=== PATIENT | female | born 1960 | race Caucasian/White ===

== ENCOUNTER 2017-02-11 09:17 | Emergency (ER) | payer OTHER ==
[~2017-02-11] VITALS: Ht 162.6 cm; Wt 56.7 kg
[~2017-02-11 09:17] MED LIST: ACET-685 PO; ALBU18HF IH; LEVO150T6 PO; MELA5TAB PO; OMEP20TA62 PO
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
--- NOTE | 2017-02-11 09:48 | DIREP ---
COMPARISON:None. INDICATIONS:injury, FALL FINDINGS: BONES:Normal. JOINTS:Normal. SOFT TISSUES:Normal. OTHER:No additional findings. CONCLUSION:Normal examination. Dictated by: Alyx Chen III, MD on 02/11/2017 at 09:46 AM
--- NOTE | 2017-02-11 09:52 | NUR ---
PD [place] [facility] IN ROOM SPEAKING WITH PT
[2017-02-11 10:07] VITALS: BP 132/87
== END 2017-02-11 10:06 | disposition home or self-care (01) ==
LOC: ER 09:17 → EDBD 09:17 → ER 10:06
DX: S80.12XA Contusion of left lower leg, initial encounter (principal); E07.9 Disorder of thyroid, unspecified; J44.9 Chronic obstructive pulmonary disease, unspecified; F17.210 Nicotine dependence, cigarettes, uncomplicated; Z88.1 Allergy status to other antibiotic agents; Z88.8 Allergy status to other drugs, medicaments and biological substances; Z79.899 Other long term (current) drug therapy; W22.8XXA Striking against or struck by other objects, initial encounter; Y93.89 Activity, other specified; Y92.59 Other trade areas as the place of occurrence of the external cause; Y99.8 Other external cause status
CPT/HCPCS: 99284; 73590-LT

== ENCOUNTER 2017-04-04 20:16 | Emergency (ER) | payer OTHER ==
[~2017-04-04] VITALS: Ht 162.6 cm; Wt 58.5 kg
--- NOTE | 2017-04-04 20:48 | ER.PDOC ---
General Chief Complaint: General Complaint Stated Complaint: CONGESTION Time seen by MD: 20:40 Source: patient Exam Limitations: no limitations History of Present Illness Initial Comments Pt with cough, expectoration, nasal congestion for over 1 week, occasional wheezing Timing/Duration: gradual Severity: moderate Associated Symptoms: fever/chills, cough, productive cough, mild SOB Allergies: Coded Allergies: celecoxib (Unverified Allergy, Severe, SEIZURES, 02/22/15) cephalexin (Unverified Allergy, Mild, N/V, 02/22/15) Home Meds Reported Medications Albuterol Sulfate (VENTOLIN HFA) 18 Gm Hfa.aer.ad, 18 GM IH Q6HR 03/01/15 Omeprazole Magnesium (PRILOSEC OTC) 20 Mg Tablet.dr, 20 MG PO DAILY 02/22/15 Melatonin (MELATONIN) 5 Mg Tablet, 10 MG PO HS Y for INSOMNIA, TABLET 02/22/15 Levothyroxine Sodium (LEVOTHYROXINE SODIUM) 150 Mcg Tablet, 75 MCG PO DAILY, TABLET 02/22/15 Constitutional: see HPI EENTM: see HPI Respiratory: see HPI Cardiovascular: see HPI Gastrointestinal: see HPI Genitourinary: see HPI Musculoskeletal: see HPI Skin: see HPI Psychiatric/Neurological: see HPI Endocrine: see HPI Hematologic/Lymphatic: see HPI Past Medical History Medical History: high cholesterol, thyroid disease Surgical History: cholecystectomy, Social History Smoking: less than 1 pack/day Alcohol Use: none Drug Use: none Physical Exam General Appearance: alert, no distress Eye: eyes nml inspection, lids & conjunct. nml, PERRL, no nystagmus Ear: ear nml Nose: mucosal edema Throat: pharynx nml, airway nml Neck: nml inspection, supple Respiratory: rhonchi Abdomen: non-tender, no organomegaly CVS: reg rate & rhythm, heart sounds nml Skin: color nml, no rash, warm/dry Extremities: non-tender, nml ROM, no pedal edema NEURO/PSYCH: oriented x 3, CN's nml as tested, motor nml, sensation nml, mood/ affect nml Departure Time of Disposition: 20:47 Disposition: 01 HOME, SELF-CARE Impression: Primary Impression: Cough productive of purulent sputum Additional Impressions: Upper respiratory infection Chronic obstruct airways disease Condition: Stable Patient Instructions: Bronchitis Referrals: ARMIDA GREGG MD (PCP) PRIMARY CARE PROVIDER TARA BACON MD April 04, 2017 20:48
[2017-04-04 21:04] VITALS: BP 130/77
== END 2017-04-04 20:55 | disposition home or self-care (01) ==
LOC: ER 20:16
DX: J44.9 Chronic obstructive pulmonary disease, unspecified (principal); E78.00 Pure hypercholesterolemia, unspecified; E07.9 Disorder of thyroid, unspecified; Z79.899 Other long term (current) drug therapy; Z88.1 Allergy status to other antibiotic agents
CPT/HCPCS: 99283

== ENCOUNTER → 2017-04-19 | Outpatient (CLI) | payer OTHER, SELFPAY ==
--- NOTE | 2017-04-19 10:01 | DIREP ---
PROCEDURE:CHEST 2 VIEWS COMPARISON:[facility], CR, XRAY CHEST 2 VWS, 05/06/2015, 11:05 AM. INDICATIONS:R05 COUGH FINDINGS: LUNGS/PLEURA: The lungs are clear of focal consolidation. No effusion or pleural thickening. VASCULATURE: Unremarkable pulmonary vasculature. CARDIAC: No cardiac silhouette abnormality or cardiomegaly. ANURAG/MEDIASTINUM: No visible mass or adenopathy. BONES: No acute changes. No fracture. OTHER: Foreign bodies overlie the anterior chest. CONCLUSION: 1. No acute cardiopulmonary changes. Dictated by: Chase Dunn M.D. on 04/19/2017 at 09:58 AM
== END | disposition home or self-care (01) ==
LOC: RAD 09:05
PROVIDERS: ATTEND Pediatrics
DX: R05 Cough (principal)
CPT/HCPCS: 71020

== ENCOUNTER 2017-06-09 17:33 | Emergency (ER) | payer OTHER, SELFPAY ==
[~2017-06-09] VITALS: Ht 162.6 cm; Wt 60.3 kg
[2017-06-09] MEDS ORDERED: IMODIUM PO STA (17:54)
[2017-06-09] MEDS ORDERED: NS 1000ML 1,000 ML IV ONE (18:00)
--- NOTE | 2017-06-09 18:00 | ER.PDOC ---
General Chief Complaint: Nausea,Vomiting,Diarrhea Stated Complaint: ABDOMEN PAIN,VOMITING,DIARRHEA Time seen by MD: 17:52 Source: patient Exam Limitations: no limitations History of Present Illness Initial Comments diarhrea for 2 days Timing/Duration: 1 hour, 24 hours Severity/Quality: mild Associated Symptoms (vomiting): mild vomiting Prior symptoms/Treatment: Recently Hospitalized Allergies: Coded Allergies: celecoxib (Unverified Allergy, Severe, SEIZURES, 02/22/15) cephalexin (Unverified Allergy, Mild, N/V, 02/22/15) Home Meds Reported Medications Albuterol Sulfate (VENTOLIN HFA) 18 Gm Hfa.aer.ad, 18 GM IH Q6HR 03/01/15 Omeprazole Magnesium (PRILOSEC OTC) 20 Mg Tablet.dr, 20 MG PO DAILY 02/22/15 Melatonin (MELATONIN) 5 Mg Tablet, 10 MG PO HS Y for INSOMNIA, TABLET 02/22/15 Levothyroxine Sodium (LEVOTHYROXINE SODIUM) 150 Mcg Tablet, 75 MCG PO DAILY, TABLET 02/22/15 Vital Signs First Vital Signs Date Time Temp Pulse Resp B/P (MAP) Pulse Ox O2 Delivery O2 Flow Rate FiO2 06/09/17 17:45 97.7 58 18 98 06/09/17 17:47 95/55 (68) Last Vital Signs Date Time Temp Pulse Resp B/P (MAP) Pulse Ox O2 Delivery O2 Flow Rate FiO2 06/09/17 18:29 57 12 104/65 (78) 99 06/09/17 17:47 97.7 Past Medical History Medical History: COPD, thyroid disease Surgical History: cholecystectomy, LMP (females 10-50): postmenopause Family History Significant Family History: no pertinent family hx Social History Smoking: less than 1 pack/day Alcohol Use: rarely Drug Use: none Constitutional: denies fever EENTM: denies eye pain Respiratory: denies cough Cardiovascular: denies chest pain Genitourinary: denies burning Psychiatric/Neurological: denies anxiety Physical Exam General Appearance: Anxious HEENT: PERRL/EOMI, Normal ENT Inspection, TMs Normal, Pharynx Normal Neck: Non-Tender, Full Range of Motion, Supple, Normal Inspection Respiratory: chest non-tender, lungs clear, normal breath sounds, no respiratory distress, no accessory muscle use Cardiovascular: Normal Peripheral Pulses, Regular Rate, Rhythm, No Edema, No Gallop, No JVD, No Murmur Gastrointestinal: Normal Bowel Sounds, Non Tender, Soft Rectal: Normal Exam Back: Normal Inspection, No CVA Tenderness, No Vertebral Tenderness Extremities: Normal Range of Motion, Non-Tender, Normal Inspection, No Pedal Edema, No Calf Tenderness, Normal Capillary Refill, Pelvis Stable 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, No Motor/Sensory Deficits, Alert, Normal Mood/Affect, Oriented x 3 Skin: Normal Color, Warm/Dry Lymphatic: No Adenopathy Laceration/Wound Repair Laceration/Wound Repair : Wound Location: scalp Wound Length (cm): 8 Progress Results/Orders Results/Orders Laboratory Tests Test 06/09/17 18:03 White Blood Count 8.9 10^3/uL (4.5-11.0) Red Blood Count 4.04 10^6/uL (4.00-5.20) Hemoglobin 12.3 g/dL (12.0-15.0) Hematocrit 36.5 % (36.0-46.0) Mean Corpuscular Volume 90.3 fL (78-100) Mean Corpuscular Hemoglobin 30.4 pg (26-34) Mean Corpuscular Hemoglobin Concent 33.7 g/dL (33-37) Red Cell Distribution Width 13.0 % (11.5-14.5) Platelet Count 333 10^3/uL (150-400) Mean Platelet Volume 9.3 fL (7.8-11.0) Neutrophils (%) (Auto) 47.6 % (41.0-85.0) Lymphocytes (%) (Auto) 37.5 % (24.0-44.0) Monocytes (%) (Auto) 10.3 % (5.0-12.0) Neutrophils # (Auto) 4.2 10^3/uL (1.8-7.7) Lymphocytes # (Auto) 3.3 10^3/uL (1.0-4.8) Monocytes # (Auto) 0.9 10^3/uL (0.3-0.8) Absolute Immature Granulocyte (auto 0.01 10^3 u/L (0-2) Eosinophils % 3.8 % (0.0-5.0) Basophils % 0.7 % (0.0-0.2) Basophils # 0.1 10^3/uL (0.0-0.1) Eosinophil Count 0.3 10^3/uL (0.0-0.2) Sodium Level 137 mmol/L (132-145) Potassium Level 3.7 mmol/L (3.6-5.2) Chloride Level 104.0 mmol/L (96-109) Carbon Dioxide Level 20.1 mmol/L (20.0-32) Anion Gap 16.6 Blood Urea Nitrogen 5 mg/dL (7-18) Creatinine 1.21 mg/dL (0.59-1.40) Estimated GFR () 55.9 (>/=60) BUN/Creatinine Ratio 4.0 Glucose Level 94 mg/dL (70-110) Calcium Level 9.1 mg/dL (8.4-10.5) Total Bilirubin 0.3 mg/dL (0.2-1.0) Aspartate Amino Transf (AST/SGOT) 27 U/L (0-35) Alanine Aminotransferase (ALT/SGPT) 31 U/L (12-78) Alkaline Phosphatase 192 U/L (50-136) Total Protein 7.7 g/dL (6.4-8.2) Albumin 4.0 g/dL (3.4-5.0) Globulin 3.7 Percent Immature Gran (Cell Imm) 0.10 % (0.00-0.50) Administered Medications Medications (Trade) Dose Ordered Sig/Krystle Route PRN Reason Start Time Stop Time Status Last Admin Dose Admin Sodium Chloride 1,000 ml @ 0 mls/hr Q0M ONCE IV 06/09/17 18:00 06/09/17 18:01 UNV 06/09/17 18:28 Loperamide HCl (Imodium) 2 mg STAT STAT PO 06/09/17 17:54 06/09/17 17:55 UNV 06/09/17 18:28 Progress Progress labs neg Departure Time of Disposition: 18:43 Disposition: 01 HOME, SELF-CARE Impression: Primary Impression: Diarrhea Ruled Out: Acute pancreatitis Condition: Stable Referrals: ARMIDA GREGG MD (PCP) PRIMARY CARE PROVIDER Additional Instructions: cipro imodium DAMI OCHOA Dr., MD Jun 09, 2017 18:00
[2017-06-09 18:16] LABS: BASOPHIL # 0.1 10^3/uL (0.0-0.1); BASOPHIL % 0.7 % (0.0-0.2); EOSINOPHIL # 0.3 10^3/uL (0.0-0.2); EOSINOPHIL % 3.8 % (0.0-5.0); HEMOGLOBIN 12.3 g/dL (12.0-15.0); LYMPHOCYTES # 3.3 10^3/uL (1.0-4.8); LYMPHOCYTES % 37.5 % (24.0-44.0); MEAN CELL HGB 30.4 pg (26-34); MEAN CELL HGB CONCENTRATION 33.7 g/dL (33-37); MEAN CORP VOLUME 90.3 fL (78-100); MEAN PLATELET VOLUME 9.3 fL (7.8-11.0); MONOCYTES # 0.9 10^3/uL (0.3-0.8); MONOCYTES % 10.3 % (5.0-12.0); NEUTROPHIL # 4.2 10^3/uL (1.8-7.7); NEUTROPHILS % 47.6 % (41.0-85.0); WHITE BLOOD CELL 8.9 10^3/uL (4.5-11.0)
[2017-06-09] MEDS ORDERED: NS 1000ML 1,000 ML ONE (18:24)
[2017-06-09 18:25] LABS: CALCIUM 9.1 mg/dL (8.4-10.5); CARBON DIOXIDE 20.1 mmol/L (20.0-32)
[2017-06-09] MEDS ORDERED: IMODIUM ONE (18:25)
--- NOTE | 2017-06-09 18:58 | NUR ---
DISCHARGE DISCHARGE INSTRUCTIONS AND PRESCRIPTION MEDICATION DISCUSSED. PT VERBALIZED UNDERSTANDING. ENCOURAGED TO RETURN FOR ANY CONCERNS.
[2017-06-09 19:01] VITALS: BP 110/67
== END 2017-06-09 18:58 | disposition home or self-care (01) ==
LOC: ER 17:33
DX: R19.7 Diarrhea, unspecified (principal); E07.9 Disorder of thyroid, unspecified; J44.9 Chronic obstructive pulmonary disease, unspecified; F17.200 Nicotine dependence, unspecified, uncomplicated
CPT/HCPCS: 36415; 80053; 85025; 99284; J7030

== ENCOUNTER 2017-10-26 13:27 | Emergency (ER) | payer OTHER ==
[~2017-10-26] VITALS: Ht 162.6 cm; Wt 59.0 kg
[~2017-10-26 13:27] MED LIST changes: -MELA5TAB PO; +MELA5TAB17 PO
[2017-10-26 14:08] LABS: BASOPHIL # 0.1 10^3/uL (0.0-0.1); BASOPHIL % 1.2 % (0.0-0.2); EOSINOPHIL # 0.7 10^3/uL (0.0-0.2); EOSINOPHIL % 7.7 % (0.0-5.0); HEMOGLOBIN 12.5 g/dL (12.0-15.0); LYMPHOCYTES % 23.3 % (24.0-44.0); MEAN CELL HGB 28.9 pg (26-34); MEAN CELL HGB CONCENTRATION 32.1 g/dL (33-37); MEAN CORP VOLUME 90.1 fL (78-100); MEAN PLATELET VOLUME 9.2 fL (7.8-11.0); MONOCYTES # 0.8 10^3/uL (0.3-0.8); MONOCYTES % 9.4 % (5.0-12.0); NEUTROPHIL # 4.9 10^3/uL (1.8-7.7); NEUTROPHILS % 58.3 % (41.0-85.0); RED CELL DISTRIBUTION WIDTH 13.5 % (11.5-14.5); WHITE BLOOD CELL 8.4 10^3/uL (4.5-11.0)
[2017-10-26] MEDS ORDERED: SOLU-MEDROL ONE (14:09)
[2017-10-26] MEDS ORDERED: PULMICORT IH STA (14:15)
[2017-10-26] MEDS ORDERED: DUONEB 0.5 MG-3 MG/3 ML SOLN IH STA (14:15)
[2017-10-26] MEDS ORDERED: DUONEB 0.5 MG-3 MG/3 ML SOLN IH ONE (14:17)
[2017-10-26] MEDS ORDERED: PULMICORT IH ONE (14:17)
--- NOTE | 2017-10-26 14:20 | DIREP ---
PROCEDURE:CHEST 2 VIEWS COMPARISON:[facility], CR, XRAY CHEST 2 VWS, 04/19/2017, 09:28 AM. [facility], , CHEST 1 VIEW, 05/10/2015, 10:13 PM. INDICATIONS:cough, fever FINDINGS: LUNGS/PLEURA:Mild pulmonary hyperinflation. No focal infiltrate. Stable mild linear scarring left lung base. VASCULATURE:Normal. Unremarkable pulmonary vasculature. CARDIAC:Normal. No cardiac silhouette abnormality or cardiomegaly. MEDIASTINUM:Normal. No visible mass or adenopathy. BONES:Normal. No fracture or visible bony lesion. OTHER:Negative. CONCLUSION:Pulmonary hyperinflation without acute infiltrate. Correlate for COPD, asthma or bronchitis. Dictated by: Maik Kruger M.D. on 10/26/2017 at 02:19 PM
[2017-10-26 14:23] LABS: CALCIUM 9.2 mg/dL (8.4-10.5); CARBON DIOXIDE 20.3 mmol/L (20.0-32)
[2017-10-26] MEDS ORDERED: DECADRON IM STA (15:02)
[2017-10-26] MEDS ORDERED: DECADRON ONE (15:05)
--- NOTE | 2017-10-26 15:23 | ER.PDOC ---
General Chief Complaint: Cough/Congestion Stated Complaint: CONGESTION,WHEEZING,COPD Time seen by MD: 14:01 Source: patient Exam Limitations: no limitations History of Present Illness Initial Comments 3 days of progressive dyspnea, pt continues to smoke Timing/Duration: other (3 days) Severity: moderate Activities at Onset: none Prior Episodes/Possible Cause: occasional episodes Modifying Factors: improves with albuterol inhaler Associated Symptoms: denies symptoms Prior symptoms/Treatment: Similar symptoms previous Allergies: Coded Allergies: celecoxib (Unverified Allergy, Severe, SEIZURES, 02/22/15) cephalexin (Unverified Allergy, Mild, N/V, 02/22/15) Home Meds Reported Medications Albuterol Sulfate (VENTOLIN HFA) 18 Gm Hfa.aer.ad, 18 GM IH Q6HR 03/01/15 Omeprazole Magnesium (PRILOSEC OTC) 20 Mg Tablet.dr, 20 MG PO DAILY 02/22/15 Melatonin (MELATONIN) 5 Mg Tablet, 10 MG PO HS Y for INSOMNIA, TABLET 02/22/15 Levothyroxine Sodium (LEVOTHYROXINE SODIUM) 150 Mcg Tablet, 75 MCG PO DAILY, TABLET 02/22/15 Past Medical History Medical History: COPD, high cholesterol, thyroid disease Surgical History: cholecystectomy, LMP (females 10-50): postmenopause Social History Smoking: less than 1 pack/day Alcohol Use: none Drug Use: none Reviewed Nursing Reviewed: Vital Signs, Abn. Noted, Nursing Assessment Review of Systems Constitutional: no symptoms reported EENTM: no symptoms reported Respiratory: see HPI, cough, shortness of breath Cardiovascular: no symptoms reported Gastrointestinal: no symptoms reported Musculoskeletal: no symptoms reported Psychiatric/Neurological: no symptoms reported All Other Systems: Reviewed and Negative Physical Exam General Appearance: Mild Distress HEENT: PERRL/EOMI, TMs Normal, Pharynx Normal, Other (tender to percussion to frontal right maxillary sinusus) Neck: Non-Tender, Full Range of Motion, Supple, Normal Inspection Respiratory: other (coarse breathe sounds) Cardiovascular: Normal Peripheral Pulses, Regular Rate, Rhythm, No Edema, No Gallop, No JVD, No Murmur Gastrointestinal: Normal Bowel Sounds, No Organomegaly, No Pulsatile Mass, Non Tender, Soft Extremities: Normal Range of Motion, Non-Tender, Normal Inspection, No Pedal Edema, No Calf Tenderness, Normal Capillary Refill 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, No Motor/Sensory Deficits, Alert, Normal Mood/Affect, Oriented x 3 Results/Orders Results/Orders Laboratory Tests Test 10/26/17 14:05 White Blood Count 8.4 10^3/uL (4.5-11.0) Red Blood Count 4.33 10^6/uL (4.00-5.20) Hemoglobin 12.5 g/dL (12.0-15.0) Hematocrit 39.0 % (36.0-46.0) Mean Corpuscular Volume 90.1 fL (78-100) Mean Corpuscular Hemoglobin 28.9 pg (26-34) Mean Corpuscular Hemoglobin Concent 32.1 g/dL (33-37) Red Cell Distribution Width 13.5 % (11.5-14.5) Platelet Count 335 10^3/uL (150-400) Mean Platelet Volume 9.2 fL (7.8-11.0) Neutrophils (%) (Auto) 58.3 % (41.0-85.0) Lymphocytes (%) (Auto) 23.3 % (24.0-44.0) Monocytes (%) (Auto) 9.4 % (5.0-12.0) Neutrophils # (Auto) 4.9 10^3/uL (1.8-7.7) Lymphocytes # (Auto) 2.0 10^3/uL (1.0-4.8) Monocytes # (Auto) 0.8 10^3/uL (0.3-0.8) Absolute Immature Granulocyte (auto 0.01 10^3 u/L (0-2) Eosinophils % 7.7 % (0.0-5.0) Basophils % 1.2 % (0.0-0.2) Basophils # 0.1 10^3/uL (0.0-0.1) Eosinophil Count 0.7 10^3/uL (0.0-0.2) Sodium Level 132 mmol/L (132-145) Potassium Level 4.3 mmol/L (3.6-5.2) Chloride Level 101.0 mmol/L (96-109) Carbon Dioxide Level 20.3 mmol/L (20.0-32) Anion Gap 15.0 Blood Urea Nitrogen 6 mg/dL (7-18) Creatinine 1.30 mg/dL (0.59-1.40) Estimated GFR () 51.5 (>/=60) BUN/Creatinine Ratio 4.0 Glucose Level 104 mg/dL (70-110) Calcium Level 9.2 mg/dL (8.4-10.5) Magnesium Level 2.2 mg/dL (1.8-2.4) Total Bilirubin 0.4 mg/dL (0.2-1.0) Aspartate Amino Transf (AST/SGOT) 33 U/L (0-35) Alanine Aminotransferase (ALT/SGPT) 34 U/L (12-78) Alkaline Phosphatase 193 U/L (50-136) Total Protein 7.8 g/dL (6.4-8.2) Albumin 4.1 g/dL (3.4-5.0) Globulin 3.7 Percent Immature Gran (Cell Imm) 0.10 % (0.00-0.50) Administered Medications Medications (Trade) Dose Ordered Sig/Krystle Route PRN Reason Start Time Stop Time Status Last Admin Dose Admin Albuterol/ Ipratropium (Duoneb 0.5 Mg-3 Mg/3 ml Soln) 3 ml STAT STAT IH 10/26/17 14:15 10/26/17 14:16 DC 10/26/17 14:27 Budesonide (Pulmicort) 0.5 mg STAT STAT IH 10/26/17 14:15 10/26/17 14:16 DC 10/26/17 14:26 Dexamethasone Sodium Phosphate (Decadron) 4 mg STAT STAT IM 10/26/17 15:02 10/26/17 15:03 DC 10/26/17 15:14 Progress Progress mild improvement with duoneb will add decadron Departure Time of Disposition: 15:22 Disposition: 01 HOME, SELF-CARE Impression: Primary Impression: COPD (chronic obstructive pulmonary disease) with acute bronchitis Additional Impression: Frontal sinusitis Condition: Stable Referrals: ARMIDA GREGG MD (PCP) PRIMARY CARE PROVIDER Duration or Time Spent with Pa: 20 Problem Qualifiers Additional Impression: Frontal sinusitis Chronicity: acute Recurrence: non-recurrent Qualified Codes: J01.10 - Acute frontal sinusitis, unspecified JUNIE MYERS MD Oct 26, 2017 15:23
[2017-10-26 15:37] VITALS: BP 123/77
== END 2017-10-26 15:31 | disposition home or self-care (01) ==
LOC: ER 13:27
DX: J44.0 Chronic obstructive pulmonary disease with (acute) lower respiratory infection (principal); J20.9 Acute bronchitis, unspecified; E07.9 Disorder of thyroid, unspecified; E78.00 Pure hypercholesterolemia, unspecified; F17.200 Nicotine dependence, unspecified, uncomplicated; Z90.49 Acquired absence of other specified parts of digestive tract; Z79.899 Other long term (current) drug therapy
CPT/HCPCS: 36415; 71020; 80053; 83735; 85025; 94640; 96372; 99285; J1100; J2920; J7620; J7627

== ENCOUNTER 2017-12-01 15:14 | Emergency (ER) | payer OTHER | END 2017-12-01 15:24 | disposition left against medical advice (07) | LOC: ER 15:14 | DX: R21 Rash and other nonspecific skin eruption (principal); Z53.21 Procedure and treatment not carried out due to patient leaving prior to being seen by health care provider ==

== ENCOUNTER 2018-01-28 17:47 | Emergency (ER) | payer OTHER ==
[~2018-01-28] VITALS: Ht 162.6 cm; Wt 60.8 kg
[2018-01-28 18:43] VITALS: BP 147/85
[2018-01-28] MEDS ORDERED: BENADRYL PO STA (20:00)
[2018-01-28] MEDS ORDERED: BENADRYL PO ONE (20:03)
--- NOTE | 2018-01-28 20:06 | ER.PDOC ---
General Chief Complaint: Skin Rash/Abscess Stated Complaint: RASH TRAVEL OUT OF US: No Time seen by MD: 19:53 Source: patient Exam Limitations: no limitations History of Present Illness Initial Comments Here for pruritic insect bites. Known infestation of bedbugs in home. Timing/Duration: unsure Severity: mild Associated Symptoms: denies symptoms Allergies: Coded Allergies: celecoxib (Unverified Allergy, Severe, SEIZURES, 02/22/15) cephalexin (Unverified Allergy, Mild, N/V, 02/22/15) Home Meds Reported Medications Albuterol Sulfate (VENTOLIN HFA) 18 Gm Hfa.aer.ad, 18 GM IH Q6HR 03/01/15 Omeprazole Magnesium (PRILOSEC OTC) 20 Mg Tablet.dr, 20 MG PO DAILY 02/22/15 Melatonin (MELATONIN) 5 Mg Tablet, 10 MG PO HS Y for INSOMNIA, TABLET 02/22/15 Levothyroxine Sodium (LEVOTHYROXINE SODIUM) 150 Mcg Tablet, 75 MCG PO DAILY, TABLET 02/22/15 Past Medical History Medical History: COPD, GERD, high cholesterol, thyroid disease Surgical History: cholecystectomy, LMP (females 10-50): postmenopause Social History Smoking: less than 1 pack/day Alcohol Use: none Drug Use: none Review of Systems Constitutional: see HPI EENTM: no symptoms reported Respiratory: no symptoms reported Cardiovascular: no symptoms reported Skin: see HPI All Other Systems: Reviewed and Negative Physical Exam General Appearance: No Apparent Distress, WD/WN, Anxious EENT: eyes nml inspection Respiratory: chest non-tender, lungs clear, normal breath sounds CVS: reg rate & rhythm, no murmur Skin: Normal Color, Warm/Dry, Other (multiple bite lesions arms and legs with excoriations from scratching. No sign of infection.) Departure Time of Disposition: 20:04 Disposition: 01 HOME, SELF-CARE Impression: Primary Impression: Insect bites Condition: Stable Patient Instructions: Bedbugs, [id number] Referrals: ARMIDA GREGG MD (PCP) PRIMARY CARE PROVIDER Additional Instructions: Benadryl for itching. Apply neosporin to bites. Duration or Time Spent with Pa: 10 NICANOR ROSARIO DO Jan 28, 2018 20:06
[2018-01-28 20:17] VITALS: BP 147/85
== END 2018-01-28 20:15 | disposition home or self-care (01) ==
LOC: ER 17:47
DX: S40.861A Insect bite (nonvenomous) of right upper arm, initial encounter (principal); S40.862A Insect bite (nonvenomous) of left upper arm, initial encounter; S80.862A Insect bite (nonvenomous), left lower leg, initial encounter; S80.861A Insect bite (nonvenomous), right lower leg, initial encounter; E07.9 Disorder of thyroid, unspecified; E78.00 Pure hypercholesterolemia, unspecified; J44.9 Chronic obstructive pulmonary disease, unspecified; K21.9 Gastro-esophageal reflux disease without esophagitis; F17.200 Nicotine dependence, unspecified, uncomplicated; Z90.49 Acquired absence of other specified parts of digestive tract; Z79.899 Other long term (current) drug therapy; Z88.8 Allergy status to other drugs, medicaments and biological substances; W57.XXXA Bitten or stung by nonvenomous insect and other nonvenomous arthropods, initial encounter; Y93.89 Activity, other specified; Y92.89 Other specified places as the place of occurrence of the external cause; Y99.8 Other external cause status
CPT/HCPCS: 99282; Q0163

== ENCOUNTER 2019-01-11 18:37 | Emergency (ER) | payer SELFPAY ==
[~2019-01-11] VITALS: Ht 160 cm; Wt 52.2 kg
[2019-01-11 18:52] VITALS: BP 124/76
[2019-01-11] MEDS ORDERED: NORCO 7.5MG PO STA (18:53)
--- NOTE | 2019-01-11 18:57 | ER.PDOC ---
General Chief Complaint: Requesting Medical Care Stated Complaint: RIGHT KNEE Time seen by MD: 18:55 Source: patient Exam Limitations: no limitations History of Present Illness Initial Comments Right knee pain from twisting it. Onset: just prior to arrival Where: home Context: twist Severity: moderate Allergies: Coded Allergies: celecoxib (Unverified Allergy, Severe, SEIZURES, 02/22/15) cephalexin (Unverified Allergy, Mild, N/V, 02/22/15) Home Meds Reported Medications Albuterol Sulfate (VENTOLIN HFA) 18 Gm Hfa.aer.ad, 18 GM IH Q6HR 03/01/15 Omeprazole Magnesium (PRILOSEC OTC) 20 Mg Tablet.dr, 20 MG PO DAILY 02/22/15 Melatonin (MELATONIN) 5 Mg Tablet, 10 MG PO HS PRN for INSOMNIA, TABLET 02/22/15 Levothyroxine Sodium (LEVOTHYROXINE SODIUM) 150 Mcg Tablet, 75 MCG PO DAILY, TABLET 02/22/15 Past Medical History Surgical History: cholecystectomy, Social History Drug Use: none Review of Systems Constitutional: no symptoms reported EENTM: no symptoms reported Respiratory: no symptoms reported Cardiovascular: no symptoms reported Gastrointestinal: no symptoms reported Musculoskeletal: see HPI All Other Systems: Reviewed and Negative Physical Exam General Appearance: Alert, No Apparent Distress Foot: nml inspection, non-tender, nml color/temp, skin intact Ankle: nml inspection, non-tender, nml ROM, no joint swelling, skin intact Knee: tenderness (right knee in the medial aspect) Thigh/Hip: nml inspection Gait: limited by pain Neuro/Vasc/Tendon: sensation nml, motor nml, no vascular compromise, tendon function nml Skin: warm/dry Head/ENT: nml inspection, pharynx nml Neck/Back: nml inspection, non-tender Abdomen: non-tender, pelvis stable Results/Orders Results/Orders Administered Medications Medications (Trade) Dose Ordered Sig/Krystle Route PRN Reason Start Time Stop Time Status Last Admin Dose Admin Acetaminophen/ Hydrocodone Bitart ([place] 7.5mg) 1 each STAT STAT PO 01/11/19 18:53 01/11/19 18:54 DC 01/11/19 19:02 EKG/XRAY/CT/US XRAY Comments: No acute bony abnormality of right knee Departure Time of Disposition: 19:09 Disposition: 01 HOME, SELF-CARE Impression: Primary Impression: Right knee injury Condition: Stable Referrals: ARMIDA GREGG MD (PCP) PRIMARY CARE PROVIDER Additional Instructions: Tramadol Ibuprofen Ice F/U with PCP in 1 week Duration or Time Spent with Pa: 45 mins Problem Qualifiers Primary Impression: Right knee injury Encounter type: initial encounter Qualified Codes: S89.91XA - Unspecified injury of right lower leg, initial encounter MICHAEL SIDDIQUI MD Jan 11, 2019 18:57
[2019-01-11] MEDS ORDERED: NORCO 7.5MG PO ONE (19:00)
--- NOTE | 2019-01-11 19:16 | DIREP ---
PROCEDURE:XRAY KNEE 2 VWS-RT COMPARISON:[facility], CR, XRAY KNEE 1-2 VWS-LT, 05/26/2016, 08:53 PM. INDICATIONS:Pain from twiting it FINDINGS: BONES:Normal. JOINTS:Mild/moderate left medial femoral tibial joint space narrowing. Minimal articular spurring. No fluid in the suprapatellar recess. SOFT TISSUES:Normal. OTHER:No additional findings. CONCLUSION:Degenerative changes. No acute bony abnormality. Dictated by: Emily Harmon MD on 01/11/2019 at 07:14 PM
[2019-01-11 19:41] VITALS: BP 124/76
== END 2019-01-11 19:30 | disposition home or self-care (01) ==
LOC: ER 18:37
DX: S89.91XA Unspecified injury of right lower leg, initial encounter (principal); Z79.899 Other long term (current) drug therapy; Z88.1 Allergy status to other antibiotic agents; Z90.49 Acquired absence of other specified parts of digestive tract; X50.9XXA Other and unspecified overexertion or strenuous movements or postures, initial encounter; Y93.89 Activity, other specified; Y92.098 Other place in other non-institutional residence as the place of occurrence of the external cause; Y99.8 Other external cause status
CPT/HCPCS: 73560; 99284

== ENCOUNTER 2019-04-25 10:52 | Emergency (ER) | payer BC ==
--- NOTE | 2019-04-25 10:55 | NUR ---
ARRIVAL PATIENT ARRIVED TO ER ACCOMPANIED BY A FRIEND. PATIETN GUARDING RIGHT ARM. C/O PAIN TO RIGHT SHOULDER THAT STARTED 2 WEEKS AGO AND WORSEN YESTERDAY. DENIES ANY FALLS OR INJURIES. NO BRUSING, RIGHT SHOULDER SLIGHTLY BIGGER THAN LEFT. BILATERAL EXT EQUAL WARM, COLOR, SENSATION, PULSE 2+, CAP REFILL < 3 SEC. TRIAGE DONE AND NOTIFIED OF PATIENT.
[2019-04-25 11:11] VITALS: BP 125/67
--- NOTE | 2019-04-25 11:34 | ER.PDOC ---
General Chief Complaint: Extremities Stated Complaint: RIGHT SHOULDER/ARM PAIN Time seen by MD: 11:33 Source: patient Exam Limitations: no limitations History of Present Illness Occurred: last week Where: home Severity: moderate Context: other Allergies: Coded Allergies: celecoxib (Unverified Allergy, Severe, SEIZURES, 02/22/15) cephalexin (Unverified Allergy, Mild, N/V, 02/22/15) Home Meds Reported Medications Albuterol Sulfate (VENTOLIN HFA) 18 Gm Hfa.aer.ad, 18 GM IH Q6HR 03/01/15 Omeprazole Magnesium (PRILOSEC OTC) 20 Mg Tablet.dr, 20 MG PO DAILY 02/22/15 Melatonin (MELATONIN) 5 Mg Tablet, 10 MG PO HS PRN for INSOMNIA, TABLET 02/22/15 Levothyroxine Sodium (LEVOTHYROXINE SODIUM) 150 Mcg Tablet, 75 MCG PO DAILY, TABLET 02/22/15 Past Medical History Medical History: asthma, COPD, thyroid disease, other Surgical History: cholecystectomy, LMP (females 10-50): postmenopause Social History Smoking: less than 1 pack/day Alcohol Use: none Drug Use: none Reviewed Nursing Reviewed: Vital Signs, Abn. Noted Review of Systems All Other Systems: Reviewed and Negative Physical Exam General Appearance: Alert, No Apparent Distress Shoulder: see diagram, tenderness, limited ROM (PAINFUL ABDUCTION) Upper Extremities: uninjuried below shoulder Neuro: sensation nml, motor nml Vascular: no vascular compromise Skin: warm/dry Head/ENT: nml inspection, pharynx nml Neck/Back: non-tender, nml inspection, painless ROM Respiratory: chest non-tender, breath sounds nml Abdomen: non-tender, no organomegaly Splinting Splinting : Pre-Made Type: ARM SLING Results/Orders Results/Orders Vital Signs Date Time Temp Pulse Resp B/P (MAP) Pulse Ox O2 Delivery O2 Flow Rate FiO2 04/25/19 11:11 98.3 56 20 125/67 (86) 100 Room Air 98.3 04/25/19 11:11 98.3 20 98.3 04/25/19 11:11 58 20 100 Room Air Departure Time of Disposition: 11:55 Disposition: 01 HOME, SELF-CARE Impression: Primary Impression: Rotator cuff (capsule) sprain Condition: Stable Referrals: ARMIDA GREGG MD (PCP) PRIMARY CARE PROVIDER Duration or Time Spent with Pa: 20 M DEBRA HAND MD Apr 25, 2019 11:34
[2019-04-25 11:56] VITALS: BP 125/67
--- NOTE | 2019-04-25 12:11 | NUR ---
DISCHARGE DISCHARGE INSTRUCTION GIVEN, PATIENT VOICED UNDERSTAND. PATIENT ASSISTED IN STREET CLOTHES AND INSTRUCTED ON THE USE OF SLING. PATIENT AMBULATED ACCOMPANIED BY FRIEND TO PRIVATE VEHICLE. NO DISTRESS NOTED.
== END 2019-04-25 12:05 | disposition home or self-care (01) ==
LOC: ER 10:52
DX: S43.421A Sprain of right rotator cuff capsule, initial encounter (principal); J44.9 Chronic obstructive pulmonary disease, unspecified; E07.9 Disorder of thyroid, unspecified; F17.210 Nicotine dependence, cigarettes, uncomplicated; Z79.899 Other long term (current) drug therapy; Z88.1 Allergy status to other antibiotic agents; Z90.49 Acquired absence of other specified parts of digestive tract; X58.XXXA Exposure to other specified factors, initial encounter; Y93.89 Activity, other specified; Y92.098 Other place in other non-institutional residence as the place of occurrence of the external cause; Y99.8 Other external cause status
CPT/HCPCS: 99283

== ENCOUNTER 2019-05-16 08:31 | Emergency (ER) | payer BC ==
[~2019-05-16] VITALS: Ht 160 cm; Wt 59.9 kg
[2019-05-16 08:46] VITALS: BP 114/52
[2019-05-16] MEDS ORDERED: TORADOL IM STA (09:14)
[2019-05-16] MEDS ORDERED: TORADOL ONE (09:19)
--- NOTE | 2019-05-16 09:19 | ER.PDOC ---
General Chief Complaint: Extremities Stated Complaint: LEFT FOOT/LEG PAIN Time seen by MD: 09:18 Source: patient Exam Limitations: no limitations History of Present Illness Initial Comments Left knee, foot and ankle pain S/P fall, she refused hitting her head. Onset: just prior to arrival Where: home Context: fall Severity: moderate Allergies: Coded Allergies: celecoxib (Unverified Allergy, Severe, SEIZURES, 02/22/15) cephalexin (Unverified Allergy, Mild, N/V, 02/22/15) Home Meds Reported Medications Albuterol Sulfate (VENTOLIN HFA) 18 Gm Hfa.aer.ad, 18 GM IH Q6HR 03/01/15 Omeprazole Magnesium (PRILOSEC OTC) 20 Mg Tablet.dr, 20 MG PO DAILY 02/22/15 Melatonin (MELATONIN) 5 Mg Tablet, 10 MG PO HS PRN for INSOMNIA, TABLET 02/22/15 Levothyroxine Sodium (LEVOTHYROXINE SODIUM) 150 Mcg Tablet, 75 MCG PO DAILY, TABLET 02/22/15 Past Medical History Medical History: COPD, high cholesterol, thyroid disease Surgical History: cholecystectomy, Social History Smoking: cigarettes, greater than 1 pack/day Alcohol Use: none Drug Use: none Review of Systems Constitutional: no symptoms reported EENTM: no symptoms reported Respiratory: no symptoms reported Cardiovascular: no symptoms reported Musculoskeletal: see HPI All Other Systems: Reviewed and Negative Physical Exam General Appearance: Alert, No Apparent Distress Foot: tenderness (left) Ankle: tenderness (left) Knee: tenderness (left with abrasion) Thigh/Hip: nml inspection Gait: limited by pain Neuro/Vasc/Tendon: sensation nml, motor nml, no vascular compromise, tendon function nml Head/ENT: nml inspection, pharynx nml Neck/Back: nml inspection, non-tender Abdomen: non-tender, pelvis stable Results/Orders Results/Orders Orders - MICHAEL SIDDIQUI MD Xr Foot Lt (05/16/19 09:14) Xr Ankle 3v Lt (05/16/19 09:14) Xr Knee Lt 2v (05/16/19 09:14) Diphth,Pertuss(Acell),Tet Vac (Boostrix (05/16/19 09:30) Ketorolac Tromethamine (Toradol) (05/16/19 09:14) Ketorolac Tromethamine (Toradol) (05/16/19 09:19) Diphth,Pertuss(Acell),Tet Vac (Boostrix (05/16/19 09:20) Vital Signs Date Time Temp Pulse Resp B/P (MAP) Pulse Ox O2 Delivery O2 Flow Rate FiO2 05/16/19 08:46 98.7 63 14 114/52 (72) 100 Room Air 98.7 05/16/19 08:42 98.7 63 14 98.7 05/16/19 08:42 97.8 63 14 100 Room Air 97.8 04/25/19 11:56 56 Administered Medications Medications (Trade) Dose Ordered Sig/Krystle Route PRN Reason Start Time Stop Time Status Last Admin Dose Admin Diphtheria/ Tetanus/Acell Pertussis (Boostrix Tdap) 0.5 ml ONCE ONCE IM 05/16/19 09:30 05/16/19 09:31 DC 05/16/19 09:27 0.5 ML Ketorolac Tromethamine (Toradol) 30 mg STAT STAT IM 05/16/19 09:14 05/16/19 09:17 DC 05/16/19 09:27 30 MG Progress Progress XR left ankle: Tiny cortical step-off and cortical irregularity involving the lateral aspect of the lateral malleolus, suspicious for a tiny, not significantly displaced fracture. Departure Time of Disposition: 11:11 Disposition: 01 HOME, SELF-CARE Impression: Primary Impression: Lateral malleolar fracture Additional Impressions: Knee injury Foot injury Condition: Stable Referrals: ARMIDA GREGG MD (PCP) PRIMARY CARE PROVIDER Additional Instructions: Ice Ibuprofen Continue Tylenol #3 F/U with Dr. Sorto next week. Call for appointment. Duration or Time Spent with Pa: 60 mins Problem Qualifiers Primary Impression: Lateral malleolar fracture Encounter type: initial encounter Fracture type: closed Fracture alignment: nondisplaced Laterality: left Qualified Codes: S82.65XA - Nondisplaced fracture of lateral malleolus of left fibula, initial encounter for closed fracture Additional Impressions: Knee injury Encounter type: initial encounter Laterality: left Qualified Codes: S89.92XA - Unspecified injury of left lower leg, initial encounter Foot injury Encounter type: initial encounter Laterality: left Qualified Codes: S99.922A - Unspecified injury of left foot, initial encounter MICHAEL SIDDIQUI MD May 16, 2019 09:19
[2019-05-16] MEDS ORDERED: BOOSTRIX TDAP IM ONE ×2 (09:20→09:30)
--- NOTE | 2019-05-16 10:42 | DIREP ---
PROCEDURE:XRAY KNEE 2 VWS-LT COMPARISON:[facility], CR, XRAY KNEE 2 VWS-LT, 05/26/2016, 08:53 PM. INDICATIONS:Pain S/P fall FINDINGS: BONES:No fractures or other acute abnormalities. JOINTS:Mild narrowing of the medial compartment of the knee joint. SOFT TISSUES:Normal. OTHER:No additional findings. CONCLUSION: 1. Minimal degenerative changes, otherwise normal left knee. Dictated by: Trino Lawson MD on 05/16/2019 at 10:34 AM
--- NOTE | 2019-05-16 10:48 | DIREP ---
PROCEDURE:XRAY ANKLE MIN 3VWS-LT COMPARISON:[facility], , XRAY TIB & FIB 2 VW-LT, 02/11/2017, 08:56 AM. INDICATIONS:Pain S/P fall FINDINGS: BONES:Tiny cortical step-off and irregularity involving the distal lateral aspect of the lateral malleolus. Findings are suspicious for a hairline, nondisplaced fracture. JOINTS:Normal. SOFT TISSUES:Normal. OTHER:No additional findings. CONCLUSION: 1. Tiny cortical step-off and cortical irregularity involving the lateral aspect of the lateral malleolus, suspicious for a tiny, not significantly displaced fracture. Dictated by: Trino Lawson MD on 05/16/2019 at 10:42 AM
--- NOTE | 2019-05-16 10:49 | DIREP ---
PROCEDURE:XRAY FOOT MIN 3 VWS-LT COMPARISON:None. INDICATIONS:Pain S/P fall FINDINGS: BONES:Normal. JOINTS:Normal. SOFT TISSUES:Normal. OTHER:No additional findings. CONCLUSION:Normal examination. Dictated by: Trino Lawson MD on 05/16/2019 at 10:47 AM
--- NOTE | 2019-05-16 11:20 | NUR ---
boot ORTHO BOOT PLACED ON L FOOT.
--- NOTE | 2019-05-16 11:26 | NUR ---
DISMISSAL PT DISCHARGED IN STABLE CONDITION WITH FAMILY MEMEBER AMBULATING BESIDE PT FOR SUPPORT.
[2019-05-16 11:38] VITALS: BP 114/52
== END 2019-05-16 11:26 | disposition home or self-care (01) ==
LOC: ER 08:31
DX: S82.65XA Nondisplaced fracture of lateral malleolus of left fibula, initial encounter for closed fracture (principal); E07.9 Disorder of thyroid, unspecified; E78.00 Pure hypercholesterolemia, unspecified; F17.210 Nicotine dependence, cigarettes, uncomplicated; J44.9 Chronic obstructive pulmonary disease, unspecified; Z79.899 Other long term (current) drug therapy; Z88.1 Allergy status to other antibiotic agents; Z90.49 Acquired absence of other specified parts of digestive tract; W19.XXXA Unspecified fall, initial encounter; Y93.89 Activity, other specified; Y92.098 Other place in other non-institutional residence as the place of occurrence of the external cause; Y99.8 Other external cause status
CPT/HCPCS: 73560; 73610; 73630; 90471; 90715; 96372; 99285; J1885

== ENCOUNTER → 2019-05-21 | Outpatient (CLI) | payer BC ==
[~2019-05-21] MED LIST changes: +MELA5TAB14 PO; -MELA5TAB17 PO
[2019-05-21 09:15] LABS: BASOPHIL # 0.1 10^3/uL (0.0-0.1); BASOPHIL % 0.8 % (0.0-0.2); EOSINOPHIL # 0.3 10^3/uL (0.0-0.2); EOSINOPHIL % 3.9 % (0.0-5.0); HEMOGLOBIN 12.4 g/dL (12.0-15.0); LYMPHOCYTES # 1.5 10^3/uL (1.0-4.8); LYMPHOCYTES % 21.1 % (24.0-44.0); MEAN CELL HGB 31.1 pg (26-34); MEAN CELL HGB CONCENTRATION 34.2 g/dL (33-37); MEAN PLATELET VOLUME 8.6 fL (7.8-11.0); MONOCYTES # 0.6 10^3/uL (0.3-0.8); MONOCYTES % 8.1 % (5.0-12.0); NEUTROPHIL # 4.8 10^3/uL (1.8-7.7); NEUTROPHILS % 65.8 % (41.0-85.0); RED CELL DISTRIBUTION WIDTH 13.4 % (11.5-14.5); WHITE BLOOD CELL 7.2 10^3/uL (4.5-11.0)
[2019-05-21 09:46] LABS: CALCIUM 9.2 mg/dL (8.4-10.5); CARBON DIOXIDE 22.8 mmol/L (20.0-32)
== END | disposition home or self-care (01) ==
LOC: LAB 08:55
PROVIDERS: ATTEND Nurse Practitioner Family
DX: E78.5 Hyperlipidemia, unspecified (principal); R55 Syncope and collapse; R00.1 Bradycardia, unspecified; J44.9 Chronic obstructive pulmonary disease, unspecified; E78.00 Pure hypercholesterolemia, unspecified; Z79.899 Other long term (current) drug therapy
CPT/HCPCS: 36415; 80050; 80053; 80061; 83036; 84436; 84443; 85025

== ENCOUNTER → 2019-05-26 | Outpatient (CLI) | payer BC ==
--- NOTE | 2019-05-26 15:30 | PCM.EKG ---
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
--- NOTE | 2019-05-26 16:06 | PCM.EKG ---
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
--- NOTE | 2019-05-27 23:40 | ECHO ---
DATE OF SERVICE: 05/27/2019 ECHO REPORT INDICATIONS: A 59-year-old female with syncope, bradycardia. PRIMARY PHYSICIAN: Dr. Frey to assess for valvular abnormality. FINDINGS: Mitral valve shows mild mitral regurgitation with narrow jet velocity. It is a 4 meters velocity but it is a narrow jet velocity. There is 2+ mitral regurgitation, normal E to A ratio, normal aorta, normal aortic valve opening. Tricuspid valve shows mild tricuspid regurgitation, 2 meters velocity with the right ventricular systolic pressure 27 mm. Right ventricle is normal. Right atrium is normal. Left atrium is normal. Left ventricle is normal in size around 4.19 cm, end diastolic dimension 2.8 cm, end-systolic dimension with normal wall thickness, motion contraction, ejection fraction 50%. IVC is normal. Hence, normal LV function, normal chamber size. Mild mitral and tricuspid regurgitation. No evidence of any significant chamber enlargement or any significant valvular abnormality. No thrombus in any of the cardiac chambers. Pericardium is normal. Laxmichand MD Maria Victoria DR: PARVIZ/no JOB# [id number]
== END | disposition home or self-care (01) ==
LOC: RT 14:22
PROVIDERS: ATTEND Pediatrics
DX: I08.1 Rheumatic disorders of both mitral and tricuspid valves (principal); R06.02 Shortness of breath
CPT/HCPCS: 93005; 93306

== ENCOUNTER → 2019-06-02 | Outpatient (CLI) | payer BC ==
--- NOTE | 2019-06-02 12:35 | DIREP ---
PROCEDURE:XR SPINE CERVICAL 2 OR 3 VIEWS COMPARISON:[facility], CR, XRAY SHOULDER MIN 2 VWS-RT, 06/02/2019, 09:53 AM. [facility], CR, XRAY KNEE 1-2 VWS-RT, 01/11/2019, 06:56 PM. [facility], CR, XRAY ANKLE MIN 3VWS-LT, 05/16/2019, 09:37 AM. [facility], CR, XRAY KNEE 1-2 VWS-LT, 05/16/2019, 09:37 AM. [facility], CR, XRAY FOOT MIN 3 VWS-LT, 05/16/2019, 09:37 AM. INDICATIONS:PAIN, LOWER ROM, PARASTHESIAS FINDINGS: ALIGNMENT:Straightening of the normal cervical curvature. VERTEBRAE:Normal. DISK SPACES:Normal. CERVICAL RIBS:None. OTHER:There is an abnormal appearance of the bony pattern of the skullbase, almost blurred. This could be due to motion however in the appropriate clinical setting fibrous dysplasia could also be on the differential. CONCLUSION: 1. No acute findings. 2. Abnormal appearance of the bony pattern of the skullbase on the lateral view only, almost blurred. This is probably due to motion (there is some motion in the cervical spine as well) however in the appropriate clinical setting fibrous dysplasia could also be on the differential. Dictated by: Joseph Ochoa MD on 06/02/2019 at 12:30 PM
--- NOTE | 2019-06-02 12:36 | DIREP ---
PROCEDURE:XRAY ELBOW 2VWS-RT COMPARISON:[facility], , XRAY ELBOW 2VWS-RT, 05/31/2016, 07:38 PM. INDICATIONS:PAIN, LOWER ROM, PARASTHESIAS FINDINGS: BONES:Normal. JOINTS:Normal. No displaced anterior or posterior fat pads. SOFT TISSUES:Normal. OTHER:Normal. CONCLUSION: No acute bony findings. Dictated by: Joseph Ochoa MD on 06/02/2019 at 12:35 PM
--- NOTE | 2019-06-02 12:44 | DIREP ---
PROCEDURE:XRAY HUMERUS MIN 2 VWS-RT COMPARISON:None. INDICATIONS:PAIN, LOWER ROM, PARASTHESIAS FINDINGS: BONES:Normal. JOINTS:Normal. SOFT TISSUES:Normal. OTHER:No additional findings. CONCLUSION:No acute bony findings. Dictated by: Joseph Ochoa MD on 06/02/2019 at 12:43 PM
--- NOTE | 2019-06-02 12:45 | DIREP ---
PROCEDURE:XRAY SHOULDER MIN 2 VWS-RT COMPARISON:[facility], , XRAY SHOULDER MIN 2 VWS-RT, 05/31/2016, 07:38 PM. INDICATIONS:PAIN, LOWER ROM, PARASTHESIAS FINDINGS: BONES:Normal. JOINTS:Normal glenohumeral and acromioclavicular joints. No evidence for dislocation. SOFT TISSUES:Normal. OTHER:Normal. CONCLUSION:No acute bony findings. Dictated by: Joseph Ochoa MD on 06/02/2019 at 12:44 PM
== END | disposition home or self-care (01) ==
LOC: RAD 10:01
PROVIDERS: ATTEND Nurse Practitioner Family
DX: M25.511 Pain in right shoulder (principal); M79.641 Pain in right hand; M25.521 Pain in right elbow; M54.2 Cervicalgia
CPT/HCPCS: 72040; 73030-RT; 73060-RT; 73070-RT

== ENCOUNTER → 2019-06-05 | Outpatient (CLI) | payer BC ==
--- NOTE | 2019-06-05 18:04 | DIREP ---
PROCEDURE:CT CERVICAL SPINE with CONTRAST TECHNIQUE:Axial cuts were obtained through the cervical spine after the administration of IV contrast. The images were viewed at bone settings. Sagittal and coronal reconstructions are provided. COMPARISON:None. INDICATIONS:M54.2 CERVCIAL PAIN, R20.2 PARASTHESIAS FINDINGS: ALIGNMENT:Normal. VERTEBRAE:Normal. PARASPINAL AREA:Normal. OTHER:Mucous retention cyst or polyp left maxillary sinus. Mild mucosal thickening left sphenoid sinus CERVICAL DISC LEVELS C2-C3:Normal. C3-C4:Normal. C4-C5:Normal. C5-C6:Normal. C6-C7:Normal. C7-T1:Normal. CONCLUSION: 1. Paranasal sinus disease. Normal cervical spine Dictated by: Luis Fernando Chen Jr. on 06/05/2019 at 05:59 PM
== END | disposition home or self-care (01) ==
LOC: RAD 14:35
PROVIDERS: ATTEND Nurse Practitioner Family
DX: M54.2 Cervicalgia (principal); J32.9 Chronic sinusitis, unspecified; R20.2 Paresthesia of skin
CPT/HCPCS: 72126; Q9965

== ENCOUNTER 2019-08-10 18:30 | Emergency (ER) | payer BC ==
[~2019-08-10] VITALS: Ht 160 cm; Wt 54.9 kg
[~2019-08-10 18:30] MED LIST changes: +ACET-687 PO; +ALPR0.5T6 PO; +LEVO112T5 PO; +LEVO750T25 PO; +LOVA20TA2 PO; +PRED15SO3 LEFT EYE; +TIZA4TAB2 PO; +TRAZ-163 PO
[2019-08-10 18:36] VITALS: BP 129/76
--- NOTE | 2019-08-10 18:59 | ER.PDOC ---
General Chief Complaint: General Complaint Stated Complaint: HYPOTENSION TRAVEL OUT OF US: No Time seen by MD: 18:58 Source: patient Exam Limitations: no limitations History of Present Illness Initial Comments Low blood pressure today. Severity: moderate Associated Symptoms: denies symptoms Allergies: Coded Allergies: celecoxib (Unverified Allergy, Severe, SEIZURES, 02/22/15) cephalexin (Unverified Allergy, Mild, N/V, 02/22/15) Home Meds Reported Medications Prednisolone Sod Phosphate (PREDNISOLONE SODIUM PHOSPHATE) 15 Mg/5 Ml Solution, 1 DROP LEFT EYE TID, #60 MILLILITER 07/28/19 Acetaminophen With Codeine (TYLENOL WITH CODEINE #4 TABLET) 1 Each Tablet, 1 EACH PO Q6, TABLET 07/27/19 Lovastatin (LOVASTATIN) 20 Mg Tablet, 20 MG PO HS, TABLET 07/27/19 Alprazolam (ALPRAZOLAM) 0.5 Mg Tablet, 0.5 MG PO Q8, TABLET 07/27/19 Trazodone Hcl (TRAZODONE HCL) 50 Mg Tablet, 50 TAB PO HS, #30 TAB 07/27/19 Tizanidine Hcl (TIZANIDINE HCL) 4 Mg Tablet, 1 TAB PO BID, #60 TAB 07/27/19 Levothyroxine Sodium (LEVOTHYROXINE SODIUM) 112 Mcg Tablet, 1 TAB PO DAILY, #90 TAB 3 Refills 07/27/19 Albuterol Sulfate (VENTOLIN HFA) 18 Gm Hfa.aer.ad, 18 GM IH Q6HR 03/01/15 Omeprazole Magnesium (PRILOSEC OTC) 20 Mg Tablet.dr, 20 MG PO DAILY 02/22/15 Melatonin (MELATONIN) 5 Mg Tablet, 10 MG PO HS PRN for INSOMNIA, TABLET 02/22/15 Discontinued Scripts Levofloxacin (LEVAQUIN) 750 Mg Tablet, 750 MG PO DAILY24, #7 TAB 0 Refills Prov:ARMIDA FREY MD 07/29/19 Past Medical History Medical History: asthma, CVA/TIA/stroke, COPD, thyroid disease, other Surgical History: cardiac cath, cholecystectomy, , stent LMP (females 10-50): Menopause Social History Smoking: non-smoker Alcohol Use: none Drug Use: none Review of Systems Constitutional: no symptoms reported Respiratory: see HPI Cardiovascular: no symptoms reported Gastrointestinal: no symptoms reported Musculoskeletal: no symptoms reported All Other Systems: Reviewed and Negative Physical Exam General Appearance: No Apparent Distress, WD/WN Neck: Non-Tender, Full Range of Motion, Supple, Normal Inspection Respiratory: chest non-tender, lungs clear, normal breath sounds, no respiratory distress, no accessory muscle use CVS: reg rate & rhythm, no murmur, no gallop, pulses nml, nml capillary refill Gastrointestinal: Normal Bowel Sounds, No Organomegaly, No Pulsatile Mass, Non Tender Back: Normal Inspection Extremities: Normal Range of Motion Neurologic/Psychiatric: manager culture II-XII NML as Tested Skin: Normal Color Results/Orders Results/Orders Orders - MICHAEL SIDDIQUI MD Cbc With Auto Diff (08/10/19 18:46) Comprehensive Metabolic Panel (08/10/19 18:46) Creatine Kinase (08/10/19 18:46) Troponin I (08/10/19 18:46) Xr Chest 1v (08/10/19 18:46) Ekg-Routine (08/10/19 18:46) Vital Signs Date Time Temp Pulse Resp B/P (MAP) Pulse Ox O2 Delivery O2 Flow Rate FiO2 08/10/19 19:30 62 18 122/72 (89) 98 08/10/19 19:00 73 18 121/63 (82) 96 08/10/19 18:36 98.6 63 18 129/76 (93) 96 Room Air 08/10/19 18:36 98.6 64 18 08/10/19 18:31 98.6 64 18 96 Room Air Laboratory Tests Test 08/10/19 19:15 White Blood Count 10.0 10^3/uL (4.5-11.0) Red Blood Count 3.24 10^6/uL (4.00-5.20) L Hemoglobin 10.1 g/dL (12.0-15.0) L Hematocrit 30.4 % (36.0-46.0) L Mean Corpuscular Volume 93.8 fL (78-100) Mean Corpuscular Hemoglobin 31.2 pg (26-34) Mean Corpuscular Hemoglobin Concent 33.2 g/dL (33-37) Red Cell Distribution Width 13.4 % (11.5-14.5) Platelet Count 271 10^3/uL (150-400) Mean Platelet Volume 8.7 fL (7.8-11.0) Neutrophils (%) (Auto) 73.3 % (41.0-85.0) Lymphocytes (%) (Auto) 13.8 % (24.0-44.0) L Monocytes (%) (Auto) 10.2 % (5.0-12.0) Neutrophils # (Auto) 7.4 10^3/uL (1.8-7.7) Lymphocytes # (Auto) 1.4 10^3/uL (1.0-4.8) Monocytes # (Auto) 1.0 10^3/uL (0.3-0.8) H Absolute Immature Granulocyte (auto 0.03 10^3 u/L (0-2) Immature Granulocytes % 0.30 % (0.00-0.50) Eosinophils % 1.9 % (0.0-5.0) Basophils % 0.5 % (0.0-0.2) H Basophils # 0.1 10^3/uL (0.0-0.1) Eosinophil Count 0.2 10^3/uL (0.0-0.2) Sodium Level 139 mmol/L (132-145) Potassium Level 3.9 mmol/L (3.6-5.2) Chloride Level 107.0 mmol/L (96-109) Carbon Dioxide Level 23.0 mmol/L (20.0-32) Anion Gap 12.9 Blood Urea Nitrogen 6 mg/dL (7-18) L Creatinine 0.97 mg/dL (0.59-1.40) Estimated GFR () 71.6 (>/=60) BUN/Creatinine Ratio 6.0 Glucose Level 102 mg/dL (70-110) Calcium Level 8.8 mg/dL (8.4-10.5) Total Bilirubin 0.4 mg/dL (0.2-1.0) Aspartate Amino Transferase (AST) 21 U/L (0-35) Alanine Aminotransferase (ALT) 36 U/L (12-78) Alkaline Phosphatase 173 U/L (50-136) H Total Creatine Kinase 20 U/L (26-192) L Troponin I < 0.02 ng/mL (0.00-0.05) Total Protein 5.8 g/dL (6.4-8.2) L Albumin 3.0 g/dL (3.4-5.0) L Globulin 2.8 Progress Progress Patient feeling better and blood pressure improved. Discussed with Dr. Frey and patient will follow up with him tomorrow morning. Course Sepsis Screening Results: Posi: NEGATIVE Sepsis Qualifier/Stage: NO DEFINITE RISK Duration or Total Time Spent w: 15 Vitals & review Data Vital Sign - Last 24 Hours 08/10/19 08/10/19 08/10/19 08/10/19 18:31 18:36 18:36 19:00 Temp 98.6 98.6 98.6 Pulse 64 64 63 73 Resp 18 18 18 18 B/P (MAP) 129/76 (93) 121/63 (82) Pulse Ox 96 96 96 O2 Delivery Room Air Room Air 08/10/19 19:30 Pulse 62 Resp 18 B/P (MAP) 122/72 (89) Pulse Ox 98 Laboratory Tests Test 08/10/19 19:15 White Blood Count 10.0 10^3/uL Red Blood Count 3.24 10^6/uL Hemoglobin 10.1 g/dL Hematocrit 30.4 % Mean Corpuscular Volume 93.8 fL Mean Corpuscular Hemoglobin 31.2 pg Mean Corpuscular Hemoglobin Concent 33.2 g/dL Red Cell Distribution Width 13.4 % Platelet Count 271 10^3/uL Mean Platelet Volume 8.7 fL Neutrophils (%) (Auto) 73.3 % Lymphocytes (%) (Auto) 13.8 % Monocytes (%) (Auto) 10.2 % Neutrophils # (Auto) 7.4 10^3/uL Lymphocytes # (Auto) 1.4 10^3/uL Monocytes # (Auto) 1.0 10^3/uL Absolute Immature Granulocyte (auto 0.03 10^3 u/L Immature Granulocytes % 0.30 % Eosinophils % 1.9 % Basophils % 0.5 % Basophils # 0.1 10^3/uL Eosinophil Count 0.2 10^3/uL Sodium Level 139 mmol/L Potassium Level 3.9 mmol/L Chloride Level 107.0 mmol/L Carbon Dioxide Level 23.0 mmol/L Anion Gap 12.9 Blood Urea Nitrogen 6 mg/dL Creatinine 0.97 mg/dL Estimated GFR () 71.6 BUN/Creatinine Ratio 6.0 Glucose Level 102 mg/dL Calcium Level 8.8 mg/dL Total Bilirubin 0.4 mg/dL Aspartate Amino Transf (AST/SGOT) 21 U/L Alanine Aminotransferase (ALT/SGPT) 36 U/L Alkaline Phosphatase 173 U/L Total Creatine Kinase 20 U/L Troponin I < 0.02 ng/mL Total Protein 5.8 g/dL Albumin 3.0 g/dL Globulin 2.8 Sepsis Infection Criteria Pres: None LEVEL 1 SEPSIS INFECTION CRITE: None/Not assessed LEVEL 2-SIRS (LIST ALL THAT AP: None/Not assessed Cardiovascular Evidence: SBP<90 Hematologic Evidence: None/Not assessed Hepatic Evidence: Elevated AST(SGOT)>72, Elevated ALT(SGPT)>90 Metabolic Evidence: None/Not assessed Neurological Evidence: None/Not assessed Respiratory Evidence: None/Not assessed Renal Evidence: None/Not assessed O2 Sat by Pulse Oximetry: 96 Departure Time of Disposition: 20:15 Disposition: 01 HOME, SELF-CARE Impression: Primary Impression: Hypotension Condition: Improved Referrals: ARMIDA FREY MD (PCP) PRIMARY CARE PROVIDER Additional Instructions: F/U with Dr. Frey tomorrow morning. Duration or Time Spent with Pa: 60 mins Problem Qualifiers Primary Impression: Hypotension Hypotension type: unspecified hypotension type Qualified Codes: I95.9 - Hypotension, unspecified MICHAEL SIDDIQUI MD Aug 10, 2019 18:59
[2019-08-10 19:00] VITALS: BP 121/63
--- NOTE | 2019-08-10 19:00 | PCM.EKG ---
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
--- NOTE | 2019-08-10 19:15 | DIREP ---
PROCEDURE:CHEST 1 VIEW COMPARISON:[facility], CR, XRAY CHEST 2 VWS, 08/03/2019, 01:44 PM. [facility], CR, XRAY CHEST SINGLE VW, 07/27/2019, 07:27 PM. [facility], CR, XRAY CHEST 2 VWS, 10/26/2017, 01:53 PM. INDICATIONS:Hypotension FINDINGS: LUNGS/PLEURA:Stable diffuse interstitial prominence. No focal consolidation or effusion. VASCULATURE:Normal. Unremarkable pulmonary vasculature. CARDIAC:Normal. No cardiac silhouette abnormality or cardiomegaly. MEDIASTINUM:Normal. No visible mass or adenopathy. BONES:Normal. No fracture or visible bony lesion. OTHER:Negative. CONCLUSION:No acute pulmonary process. Dictated by: Griselda Issa M.D. on 08/10/2019 at 07:13 PM
[2019-08-10 19:19] LABS: BASOPHIL # 0.1 10^3/uL (0.0-0.1); BASOPHIL % 0.5 % (0.0-0.2); EOSINOPHIL # 0.2 10^3/uL (0.0-0.2); EOSINOPHIL % 1.9 % (0.0-5.0); HEMOGLOBIN 10.1 g/dL (12.0-15.0); LYMPHOCYTES # 1.4 10^3/uL (1.0-4.8); LYMPHOCYTES % 13.8 % (24.0-44.0); MEAN CELL HGB 31.2 pg (26-34); MEAN CELL HGB CONCENTRATION 33.2 g/dL (33-37); MEAN CORP VOLUME 93.8 fL (78-100); MEAN PLATELET VOLUME 8.7 fL (7.8-11.0); MONOCYTES % 10.2 % (5.0-12.0); NEUTROPHIL # 7.4 10^3/uL (1.8-7.7); NEUTROPHILS % 73.3 % (41.0-85.0); RED CELL DISTRIBUTION WIDTH 13.4 % (11.5-14.5)
[2019-08-10 19:30] VITALS: BP 122/72
[2019-08-10 19:42] LABS: ALANINE AMINOTRANSFERASE(ML) 36 U/L (12-78); ALKALINE PHOSPHATASE 173 U/L (50-136); ASPARTATE AMINO TRANSFERASE 21 U/L (0-35); CALCIUM 8.8 mg/dL (8.4-10.5); GLUCOSE 102 mg/dL (70-110)
[2019-08-10 20:00] VITALS: BP 116/68
--- NOTE | 2019-08-10 20:20 | NUR ---
IV IV DISCONTINUED WITH TIP INTACT. PRESSURE DRESSING APPLIED.
== END 2019-08-10 20:25 | disposition home or self-care (01) ==
LOC: ER 18:30 → EDBD 18:30 → ER 20:25
DX: I95.9 Hypotension, unspecified (principal); E07.9 Disorder of thyroid, unspecified; J44.9 Chronic obstructive pulmonary disease, unspecified; Z79.899 Other long term (current) drug therapy; Z86.73 Personal history of transient ischemic attack (TIA), and cerebral infarction without residual deficits; Z88.1 Allergy status to other antibiotic agents; Z90.49 Acquired absence of other specified parts of digestive tract
CPT/HCPCS: 36415; 71045; 80053; 82550; 84484; 85025; 93005; 99285

== ENCOUNTER → 2019-08-11 | Outpatient (CLI) | payer BC ==
[2019-08-11 08:31] LABS: CARBON DIOXIDE 23.8 mmol/L (20.0-32)
== END | disposition home or self-care (01) ==
LOC: LAB 07:55
PROVIDERS: ATTEND Nurse Practitioner Family
DX: R53.81 Other malaise (principal); I95.89 Other hypotension; E27.40 Unspecified adrenocortical insufficiency; R60.9 Edema, unspecified
CPT/HCPCS: 36415; 80053; 82024; 82533; 83880

== ENCOUNTER → 2019-08-20 | Outpatient (CLI) | payer BC ==
[~2019-08-20] MED LIST changes: +AMOX1TAB63 PO; +ASPI-655 PO; +BECL10PO INH; +BENZ100C PO; +CITA10TA4 PO; +FLUD0.1T PO; +FLUT16SP; +FLUT16SP NS; +GUAI600T31 PO; +LEVO88TA5 PO; +MEGE40TA PO; +MONT10TA9 PO; +POTA10TA6 PO; +PRED20TA PO; +TIZA2CAP PO; +[UNRECOGNIZED DRUG - CODE] TD
--- NOTE | 2019-08-20 15:36 | DIREP ---
PROCEDURE:XR BARIUM SWALLOW - MODIFIED COMPARISON:None. INDICATIONS: Progressively increasing difficulty with swallowing SECONDARY INDICATION: Feels food gets stuck TECHNIQUE:A comprehensive fluoroscopic examination of swallowing was performed, utilizing a variety of barium consistencies. FINDINGS: PHARYNGEAL PHASE:Normal. ASPIRATION:None. OTHER:Negative. FLUORO TIME: 3 min NUMBER OF IMAGES: 2 cine clips CONCLUSION: 1. No penetration or aspiration. Dictated by: Debbie Deutsch MD on 08/20/2019 at 03:35 PM
== END | disposition home or self-care (01) ==
LOC: RAD 12:39
PROVIDERS: ATTEND Pediatrics
DX: R13.10 Dysphagia, unspecified (principal)
CPT/HCPCS: 74230; 92611

== ENCOUNTER → 2019-09-14 | Outpatient (CLI) | payer BC ==
[~2019-09-14] MED LIST changes: -AMOX1TAB63 PO; -ASPI-655 PO; -BECL10PO INH; -BENZ100C PO; -CITA10TA4 PO; -FLUD0.1T PO; -FLUT16SP; -FLUT16SP NS; -GUAI600T31 PO; -LEVO88TA5 PO; -MEGE40TA PO; -MONT10TA9 PO; -POTA10TA6 PO; -PRED20TA PO; -TIZA2CAP PO; -[UNRECOGNIZED DRUG - CODE] TD
== END | disposition home or self-care (01) ==
LOC: RT 07:55
PROVIDERS: ATTEND Nurse Practitioner Family
DX: J44.1 Chronic obstructive pulmonary disease with (acute) exacerbation (principal); R09.02 Hypoxemia
CPT/HCPCS: 94060; 94729

== ENCOUNTER 2019-09-20 12:08 | Emergency (ER) | payer BC ==
[~2019-09-20] VITALS: Ht 162.6 cm; Wt 58.1 kg
[2019-09-20 12:10] VITALS: BP 130/75
[2019-09-20 12:25] VITALS: BP 130/75
[2019-09-20 12:27] VITALS: BP 130/75
[2019-09-20] MEDS ORDERED: DECADRON IH STA (13:15)
[2019-09-20] MEDS ORDERED: SOLU-MEDROL IM STA (13:15)
--- NOTE | 2019-09-20 13:19 | ER.PDOC ---
General Chief Complaint: Dyspnea/Respdistress Stated Complaint: TROUBLE BREATHING Time seen by MD: 13:18 Source: patient Exam Limitations: no limitations History of Present Illness Initial Comments SOB for 3 days. No chest pain but she has a cough. Severity: moderate Prior Episodes/Possible Cause: occasional episodes, chronic episodes Modifying Factors: improves with albuterol nebulizer Associated Symptoms: cough Allergies: Coded Allergies: celecoxib (Unverified Allergy, Severe, SEIZURES, 02/22/15) cephalexin (Unverified Allergy, Mild, N/V, 02/22/15) Home Meds Reported Medications Prednisolone Sod Phosphate (PREDNISOLONE SODIUM PHOSPHATE) 15 Mg/5 Ml Solution, 1 DROP LEFT EYE TID, #60 MILLILITER 07/28/19 Acetaminophen With Codeine (TYLENOL WITH CODEINE #4 TABLET) 1 Each Tablet, 1 EACH PO Q6, TABLET 07/27/19 Lovastatin (LOVASTATIN) 20 Mg Tablet, 20 MG PO HS, TABLET 07/27/19 Alprazolam (ALPRAZOLAM) 0.5 Mg Tablet, 0.5 MG PO Q8, TABLET 07/27/19 Trazodone Hcl (TRAZODONE HCL) 50 Mg Tablet, 50 TAB PO HS, #30 TAB 07/27/19 Tizanidine Hcl (TIZANIDINE HCL) 4 Mg Tablet, 1 TAB PO BID, #60 TAB 07/27/19 Levothyroxine Sodium (LEVOTHYROXINE SODIUM) 112 Mcg Tablet, 1 TAB PO DAILY, #90 TAB 3 Refills 07/27/19 Albuterol Sulfate (VENTOLIN HFA) 18 Gm Hfa.aer.ad, 18 GM IH Q6HR 03/01/15 Omeprazole Magnesium (PRILOSEC OTC) 20 Mg Tablet.dr, 20 MG PO DAILY 02/22/15 Melatonin (MELATONIN) 5 Mg Tablet, 10 MG PO HS PRN for INSOMNIA, TABLET 02/22/15 Past Medical History Medical History: COPD, thyroid disease Surgical History: cholecystectomy, , knee Social History Smoking: less than 1 pack/day Alcohol Use: none Drug Use: none Review of Systems Constitutional: no symptoms reported EENTM: no symptoms reported Respiratory: see HPI Cardiovascular: no symptoms reported Gastrointestinal: no symptoms reported All Other Systems: Reviewed and Negative Physical Exam General Appearance: No Apparent Distress, WD/WN Neck: Non-Tender, Full Range of Motion, Supple, Normal Inspection Respiratory: chest non-tender, no respiratory distress, wheezing, expiration Cardiovascular: Normal Peripheral Pulses, Regular Rate, Rhythm, No Edema, No Gallop, No JVD, No Murmur Gastrointestinal: Normal Bowel Sounds, No Organomegaly, No Pulsatile Mass, Non Tender, Soft Extremities: Normal Range of Motion, Non-Tender, Normal Inspection, No Pedal Edema, No Calf Tenderness, Normal Capillary Refill Neurologic/Psychiatric: 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 (09/20/19 13:15) Ekg-Routine (09/20/19 13:15) Ipratropium/Albuterol Sulfate (Duoneb 0. (09/20/19 16:00) Dexamethasone Sodium Phosphate (Decadron (09/20/19 13:15) Methylprednisolone Sod Succ (Solu-Medrol (09/20/19 13:15) Ipratropium/Albuterol Sulfate (Duo 0.5-3 (09/20/19 13:31) Dexamethasone Sodium Phosphate (Decadron (09/20/19 13:31) Methylprednisolone Sod Succ (Solu-Medrol (09/20/19 13:50) Ipratropium/Albuterol Sulfate (Duoneb 0. (09/20/19 14:00) Vital Signs Date Time Temp Pulse Resp B/P (MAP) Pulse Ox O2 Delivery O2 Flow Rate FiO2 09/20/19 14:00 89 20 98 09/20/19 13:35 88 22 98 09/20/19 12:27 98.2 98 17 130/75 (93) 98 Room Air 09/20/19 12:25 98.2 98 16 09/20/19 12:10 98.2 98 17 98 Room Air Administered Medications Medications (Trade) Dose Ordered Sig/Krystle Route PRN Reason Start Time Stop Time Status Last Admin Dose Admin Albuterol/ Ipratropium (Duoneb 0.5 Mg-3 Mg/3 ml Soln) 3 ml Q4HR IH 09/20/19 16:00 09/20/19 13:59 DC 09/20/19 13:56 3 ML Methylprednisolone Sodium Succinate (Solu-Medrol) 125 mg STAT STAT IM 09/20/19 13:15 09/20/19 13:18 DC 09/20/19 13:56 125 MG Laboratory Tests Test 09/20/19 13:35 White Blood Count 10.4 10^3/uL (4.5-11.0) Red Blood Count 3.66 10^6/uL (4.00-5.20) L Hemoglobin 11.0 g/dL (12.0-15.0) L Hematocrit 33.9 % (36.0-46.0) L Mean Corpuscular Volume 92.6 fL (78-100) Mean Corpuscular Hemoglobin 30.1 pg (26-34) Mean Corpuscular Hemoglobin Concent 32.4 g/dL (33-37) L Red Cell Distribution Width 13.8 % (11.5-14.5) Platelet Count 474 10^3/uL (150-400) H Mean Platelet Volume 9.5 fL (7.8-11.0) Neutrophils (%) (Auto) 65.9 % (41.0-85.0) Lymphocytes (%) (Auto) 22.3 % (24.0-44.0) L Monocytes (%) (Auto) 8.5 % (5.0-12.0) Neutrophils # (Auto) 6.9 10^3/uL (1.8-7.7) Lymphocytes # (Auto) 2.3 10^3/uL (1.0-4.8) Monocytes # (Auto) 0.9 10^3/uL (0.3-0.8) H Absolute Immature Granulocyte (auto 0.04 10^3 u/L (0-2) Immature Granulocytes % 0.40 % (0.00-0.50) Eosinophils % 2.4 % (0.0-5.0) Basophils % 0.5 % (0.0-0.2) H Basophils # 0.1 10^3/uL (0.0-0.1) Eosinophil Count 0.3 10^3/uL (0.0-0.2) H Prothrombin Time 9.4 SEC (9.4-11.5) Prothrombin Time INR (Non-Therap) 0.9 Activated Partial Thromboplast Time 21.9 SEC (24.67-30.72) D-Dimer 0.33 mg/L (0.19-0.49) Sodium Level 138 mmol/L (132-145) Potassium Level 3.5 mmol/L (3.6-5.2) L Chloride Level 108.0 mmol/L (96-109) Carbon Dioxide Level 14.6 mmol/L (20.0-32) L Anion Gap 18.9 Blood Urea Nitrogen 21 mg/dL (7-18) H Creatinine 1.17 mg/dL (0.59-1.40) Estimated GFR () 57.7 (>/=60) BUN/Creatinine Ratio 17.0 Glucose Level 178 mg/dL (70-110) H Calcium Level 9.6 mg/dL (8.4-10.5) Total Bilirubin 0.2 mg/dL (0.2-1.0) Aspartate Amino Transferase (AST) 19 U/L (0-35) Alanine Aminotransferase (ALT) 37 U/L (12-78) Alkaline Phosphatase 127 U/L (50-136) Total Creatine Kinase 43 U/L (26-192) Troponin I < 0.02 ng/mL (0.00-0.05) Pro-B-Type Natriuretic Peptide 121 pg/mL (0-125) Total Protein 6.7 g/dL (6.4-8.2) Albumin 3.7 g/dL (3.4-5.0) Globulin 3.0 Progress Progress Patient declined ABG. Spoke with Dr. Frey who told me that patient should follow up with him in 2 days in his office. She is feeling better and voices no more complaints. EKG/XRAY/CT/US EKG: NSR XRAY: chest (No active disease) Departure Time of Disposition: 15:35 Disposition: 01 HOME, SELF-CARE Impression: Primary Impression: COPD exacerbation Condition: Stable Referrals: ARMIDA FREY MD (PCP) PRIMARY CARE PROVIDER Additional Instructions: Doxycycline Prednisone Continue breathing treatment at home F/U with Dr. Frey on 09/22/19. Return to ED if worsening. Duration or Time Spent with Pa: 60 mins MICHAEL SIDDIQUI MD Sep 20, 2019 13:19
--- NOTE | 2019-09-20 13:28 | PCM.EKG ---
[facility] Test Date: 2019-09-20 Test Time: 13:26:17 Pat Name: EDIE MACEDO Department: Room: Gender: F Clinic Lpn: : 1960 Requested By: MICHAEL SIDDIQUI Order Number: [id number] Reading MD: Michael SIDDIQUI Measurements Intervals [place] Rate: 75 P: 63 NC: 125 QRS: 65 QRSD: 80 T: 72 QT: 389 QTc: 435 Interpretive Statements Sinus rhythm Compared to ECG 08/10/2019 19:01:01 No significant changes Electronically Signed On 09-22-2019 22:28:04 ACADEMIC SUPPORT DIRECTOR by Michael SIDDIQUI Please click the below link to view image of tracing.
[2019-09-20] MEDS ORDERED: DUO 0.5-3(2.5) MG/3 ML IH ONE (13:31)
[2019-09-20] MEDS ORDERED: DECADRON ONE (13:31)
[2019-09-20 13:43] LABS: BASOPHIL # 0.1 10^3/uL (0.0-0.1); BASOPHIL % 0.5 % (0.0-0.2); EOSINOPHIL # 0.3 10^3/uL (0.0-0.2); EOSINOPHIL % 2.4 % (0.0-5.0); LYMPHOCYTES # 2.3 10^3/uL (1.0-4.8); LYMPHOCYTES % 22.3 % (24.0-44.0); MEAN CELL HGB 30.1 pg (26-34); MEAN CELL HGB CONCENTRATION 32.4 g/dL (33-37); MEAN CORP VOLUME 92.6 fL (78-100); MEAN PLATELET VOLUME 9.5 fL (7.8-11.0); MONOCYTES # 0.9 10^3/uL (0.3-0.8); MONOCYTES % 8.5 % (5.0-12.0); NEUTROPHIL # 6.9 10^3/uL (1.8-7.7); NEUTROPHILS % 65.9 % (41.0-85.0); RED CELL DISTRIBUTION WIDTH 13.8 % (11.5-14.5); WHITE BLOOD CELL 10.4 10^3/uL (4.5-11.0)
[2019-09-20] MEDS ORDERED: SOLU-MEDROL ONE (13:50)
--- NOTE | 2019-09-20 13:57 | DIREP ---
PROCEDURE:CHEST 1 VIEW COMPARISON:[facility], CT, CT CHEST W/CONTRAST, 07/29/2019, 09:05 AM. [facility], CR, XRAY CHEST SINGLE VW, 08/10/2019, 06:57 PM. [facility], CR, XRAY CHEST 2 VWS, 04/19/2017, 09:28 AM. INDICATIONS:SOB FINDINGS: LUNGS/PLEURA:Mild diffuse interstitial fibrotic changes. Linear atelectasis left lung base. VASCULATURE:Normal. Unremarkable pulmonary vasculature. CARDIAC:Normal. No cardiac silhouette abnormality or cardiomegaly. MEDIASTINUM:Normal. No visible mass or adenopathy. BONES:Normal. No fracture or visible bony lesion. OTHER:Negative. CONCLUSION: 1. Mild interstitial fibrotic changes. Linear atelectasis left lung base. Dictated by: Luis Fernando Chen Jr. on 09/20/2019 at 01:55 PM
[2019-09-20] MEDS ORDERED: DUONEB 0.5 MG-3 MG/3 ML SOLN IH SCH ×2 (14:00→16:00)
[2019-09-20 14:41] LABS: ALANINE AMINOTRANSFERASE(ML) 37 U/L (12-78); ALKALINE PHOSPHATASE 127 U/L (50-136); ASPARTATE AMINO TRANSFERASE 19 U/L (0-35); CALCIUM 9.6 mg/dL (8.4-10.5); CARBON DIOXIDE 14.6 mmol/L (20.0-32); GLUCOSE 178 mg/dL (70-110)
== END 2019-09-20 15:45 | disposition home or self-care (01) ==
LOC: ER 12:08
DX: J44.1 Chronic obstructive pulmonary disease with (acute) exacerbation (principal); F17.210 Nicotine dependence, cigarettes, uncomplicated; E07.9 Disorder of thyroid, unspecified; Z79.899 Other long term (current) drug therapy; Z88.1 Allergy status to other antibiotic agents; Z90.49 Acquired absence of other specified parts of digestive tract
CPT/HCPCS: 36415; 71045; 80053; 82550; 83880; 84484; 85025; 85379; 85610; 85730; 87040 ×2; 93005; 94640; 96372; 99285; J1100; J2930; J7620

== ENCOUNTER → 2019-09-28 | Outpatient (CLI) | payer BC | END | disposition home or self-care (01) | LOC: LAB 10:08 | PROVIDERS: ATTEND Pediatrics | DX: E03.9 Hypothyroidism, unspecified (principal) | CPT/HCPCS: 36415; 84439; 84443 ==

== ENCOUNTER 2019-10-09 20:50 | Emergency (ER) | payer BC ==
[~2019-10-09] VITALS: Ht 162.6 cm; Wt 64.0 kg
[2019-10-09 21:57] VITALS: BP 112/73
--- NOTE | 2019-10-09 22:20 | PCM.EKG ---
[facility] Test Date: 2019-10-09 Test Time: 22:18:15 Pat Name: EDIE MACEDO Department: Room: Gender: F Public Policy Coordinator: : 1960 Requested By: MARY LOPEZ Order Number: [id number] Reading MD: Mary Lopez Measurements Intervals [place] Rate: 80 P: 64 UT: 119 QRS: 62 QRSD: 76 T: 74 QT: 387 QTc: 447 Interpretive Statements Sinus rhythm Borderline short [place] interval Compared to ECG 09/20/2019 13:26:17 No significant changes Electronically Signed On 10-10-2019 6:54:26 BRASS AND WIND INSTRUMENT REPAIRER by Mary Lopez Please click the below link to view image of tracing.
[2019-10-09 22:25] LABS: BASOPHIL % 0.4 % (0.0-0.2); EOSINOPHIL # 0.2 10^3/uL (0.0-0.2); EOSINOPHIL % 2.5 % (0.0-5.0); LYMPHOCYTES # 2.3 10^3/uL (1.0-4.8); LYMPHOCYTES % 24.2 % (24.0-44.0); MEAN CORP HGB 30.1 pg (26-34); MONOCYTES % 10.5 % (5.0-12.0); NEUTROPHIL # 5.9 10^3/uL (1.8-7.7); NEUTROPHILS % 62.3 % (41.0-85.0); RED CELL DISTRIBUTION WIDTH 14.4 % (11.5-14.5)
--- NOTE | 2019-10-09 22:41 | DIREP ---
PROCEDURE:CHEST 1 VIEW COMPARISON:[facility], CR, XRAY CHEST SINGLE VW, 09/20/2019, 01:19 PM. [facility], CR, XRAY CHEST SINGLE VW, 08/10/2019, 06:57 PM. INDICATIONS:bilateral LE edema FINDINGS: LUNGS/PLEURA:Left basilar atelectasis. The left costophrenic angle is out of field of view. Coarse interstitial markings. No consolidation or right pleural effusion. VASCULATURE:Normal. Unremarkable pulmonary vasculature. CARDIAC:Normal. No cardiac silhouette abnormality or cardiomegaly. MEDIASTINUM:Normal. No visible mass or adenopathy. BONES:Normal. No fracture or visible bony lesion. OTHER:Negative. CONCLUSION:Left basilar atelectasis. The left costophrenic angle is out of field of view. Coarse interstitial markings. No consolidation or right pleural effusion. Dictated by: Joseph Ochoa MD on 10/09/2019 at 10:36 PM
--- NOTE | 2019-10-09 22:49 | ER.PDOC ---
General Chief Complaint: Extremities Stated Complaint: LEG SWELLING Time seen by MD: 22:14 Source: patient Exam Limitations: no limitations History of Present Illness Initial Comments Pt with a couple days of minimal leg swelling b/l, got worse today. Called her home health nurse, who sent her to the ER. Has COPD, with chronic SOB, but is not worsened. Denies pain in legs Recent Injury: No Where: home Severity: mild Exacerbated By: nothing Relieved By: nothing Prior symptoms/Treatment: No Similar symptoms previous, No Recenly Seen Allergies: Coded Allergies: celecoxib (Unverified Allergy, Severe, SEIZURES, 02/22/15) cephalexin (Unverified Allergy, Mild, N/V, 02/22/15) Home Meds Reported Medications Prednisolone Sod Phosphate (PREDNISOLONE SODIUM PHOSPHATE) 15 Mg/5 Ml Solution, 1 DROP LEFT EYE TID, #60 MILLILITER 07/28/19 Acetaminophen With Codeine (TYLENOL WITH CODEINE #4 TABLET) 1 Each Tablet, 1 EACH PO Q6, TABLET 07/27/19 Lovastatin (LOVASTATIN) 20 Mg Tablet, 20 MG PO HS, TABLET 07/27/19 Alprazolam (ALPRAZOLAM) 0.5 Mg Tablet, 0.5 MG PO Q8, TABLET 07/27/19 Trazodone Hcl (TRAZODONE HCL) 50 Mg Tablet, 50 TAB PO HS, #30 TAB 07/27/19 Tizanidine Hcl (TIZANIDINE HCL) 4 Mg Tablet, 1 TAB PO BID, #60 TAB 07/27/19 Levothyroxine Sodium (LEVOTHYROXINE SODIUM) 112 Mcg Tablet, 1 TAB PO DAILY, #90 TAB 3 Refills 07/27/19 Albuterol Sulfate (VENTOLIN HFA) 18 Gm Hfa.aer.ad, 18 GM IH Q6HR 03/01/15 Omeprazole Magnesium (PRILOSEC OTC) 20 Mg Tablet.dr, 20 MG PO DAILY 02/22/15 Melatonin (MELATONIN) 5 Mg Tablet, 10 MG PO HS PRN for INSOMNIA, TABLET 02/22/15 Past Medical History Medical History: COPD, heart valve disease, thyroid disease Surgical History: cholecystectomy Family History Significant Family History: no pertinent family hx Social History Smoking: less than 1 pack/day Alcohol Use: none Drug Use: none Review of Systems Constitutional: no symptoms reported EENTM: no symptoms reported Respiratory: see HPI Cardiovascular: see HPI; denies chest pain; edema (b/l LE edema); denies palpitations Gastrointestinal: no symptoms reported Genitourinary: no symptoms reported Musculoskeletal: no symptoms reported Skin: no symptoms reported All Other Systems: Reviewed and Negative Physical Exam General Appearance: Alert, No Apparent Distress Lower Extremity: pedal edema (1+b/l ankles and distal LE b/l) Joint Exam: joints nml Vascular: no vascular compromise Skin: color nml, warm/dry, no rash Back/Neck: nml inspection Respiratory: no resp distress CVS: reg rate & rhythm, heart sounds nml Abdomen: non-tender Results/Orders Results/Orders Orders - JOHNMARY DO Cbc With Auto Diff (10/09/19 22:10) Comprehensive Metabolic Panel (10/09/19 22:10) Probnp B-Type Can Cutter (10/09/19 22:10) Xr Chest 1v (10/09/19 22:10) Ekg-Routine (10/09/19 22:10) Us Bilat Lower Ext Venous Dopp (10/09/19 22:10) Vital Signs Date Time Temp Pulse Resp B/P (MAP) Pulse Ox O2 Delivery O2 Flow Rate FiO2 10/09/19 21:57 98.1 91 14 99 Nasal [place] 10/09/19 21:57 98.1 91 14 112/73 (86) 99 Nasal [place] 2.50 Laboratory Tests Test 10/09/19 22:18 White Blood Count 9.5 10^3/uL (4.5-11.0) Red Blood Count 3.22 10^6/uL (4.00-5.20) L Hemoglobin 9.7 g/dL (12.0-15.0) L Hematocrit 29.6 % (36.0-46.0) L Mean Corpuscular Volume 91.9 fL (78-100) Mean Corpuscular Hemoglobin 30.1 pg (26-34) Mean Corpuscular Hemoglobin Concent 32.8 g/dL (33-37) L Red Cell Distribution Width 14.4 % (11.5-14.5) Platelet Count 267 10^3/uL (150-400) Mean Platelet Volume 9.5 fL (7.8-11.0) Neutrophils (%) (Auto) 62.3 % (41.0-85.0) Lymphocytes (%) (Auto) 24.2 % (24.0-44.0) Monocytes (%) (Auto) 10.5 % (5.0-12.0) Neutrophils # (Auto) 5.9 10^3/uL (1.8-7.7) Lymphocytes # (Auto) 2.3 10^3/uL (1.0-4.8) Monocytes # (Auto) 1.0 10^3/uL (0.3-0.8) H Absolute Immature Granulocyte (auto 0.01 10^3 u/L (0-2) Immature Granulocytes % 0.10 % (0.00-0.50) Eosinophils % 2.5 % (0.0-5.0) Basophils % 0.4 % (0.0-0.2) H Basophils # 0.0 10^3/uL (0.0-0.1) Eosinophil Count 0.2 10^3/uL (0.0-0.2) Sodium Level 138 mmol/L (132-145) Potassium Level 3.8 mmol/L (3.6-5.2) Chloride Level 108.0 mmol/L (96-109) Carbon Dioxide Level 19.9 mmol/L (20.0-32) L Anion Gap 13.9 Blood Urea Nitrogen 9 mg/dL (7-18) Creatinine 1.09 mg/dL (0.59-1.40) Estimated GFR () 62.6 (>/=60) BUN/Creatinine Ratio 8.0 Glucose Level 127 mg/dL (70-110) H Calcium Level 8.6 mg/dL (8.4-10.5) Total Bilirubin 0.2 mg/dL (0.2-1.0) Aspartate Amino Transferase (AST) 20 U/L (0-35) Alanine Aminotransferase (ALT) 30 U/L (12-78) Alkaline Phosphatase 99 U/L (50-136) Pro-B-Type Natriuretic Peptide 391 pg/mL (0-125) H Total Protein 5.9 g/dL (6.4-8.2) L Albumin 2.9 g/dL (3.4-5.0) L Globulin 3.0 Progress Progress u/s neg, no CVT seen. Slightly elevated Pro-BNP, but no signs of congestion on Xray seen. Will need f/u with PMD and possible cardiac referral, but will start Lasix in the meantime. No indication for admission at this time. Departure Time of Disposition: 00:29 Disposition: 01 HOME, SELF-CARE Impression: Primary Impression: Edema of both lower extremities Condition: Stable Referrals: ARMIDA GREGG MD (PCP) PRIMARY CARE PROVIDER Duration or Time Spent with Pa: 40 MARY LOPEZ DO Oct 09, 2019 22:49
[2019-10-09 23:02] LABS: CALCIUM 8.6 mg/dL (8.4-10.5); CARBON DIOXIDE 19.9 mmol/L (20.0-32)
--- NOTE | 2019-10-10 00:20 | DIREP ---
PROCEDURE:US VENOUS IMAGING BILAT COMPARISON:None. INDICATIONS:b/l LE edema TECHNIQUE:The lower extremities were evaluated utilizing mclean scale images with segmental compression, color Doppler, and spectral Doppler with respiratory variation and augmentation. FINDINGS: RIGHT Common femoral vein:Patent Superficial femoral vein:Patent Popliteal vein:Patent Posterior tibial vein:Patent Peroneal vein:Patent Saphenous femoral junction:Patent Waveforms: Within normal limits. LEFT Common femoral vein:Patent Superficial femoral vein:Patent Popliteal vein:Patent Posterior tibial vein:Patent Peroneal vein:Patent Saphenous femoral junction:Patent Waveforms: Within normal limits. CONCLUSION: 1. No DVT identified in the right or left lower extremity. Dictated by: Debbie Deutsch MD on 10/10/2019 at 00:18 AM
[2019-11-22] MEDS ORDERED: PRED20TA PO (13:54)
[2019-11-22] MEDS ORDERED: BENZ100C PO (13:54)
[2019-11-22] MEDS ORDERED: FLUT16SP NS (13:54)
== END 2019-10-10 00:44 | disposition home or self-care (01) ==
LOC: ER 20:50
DX: R60.0 Localized edema (principal); E07.9 Disorder of thyroid, unspecified; F17.210 Nicotine dependence, cigarettes, uncomplicated; J44.9 Chronic obstructive pulmonary disease, unspecified; Z79.899 Other long term (current) drug therapy; Z88.1 Allergy status to other antibiotic agents; Z90.49 Acquired absence of other specified parts of digestive tract
CPT/HCPCS: 36415; 71045; 80053; 83880; 85025; 93005; 93970; 99285

== ENCOUNTER 2019-10-21 10:21 | Inpatient (IN) | payer BC ==
[~2019-10-21] VITALS: Ht 162.6 cm; Wt 68.5 kg
[2019-10-21] VITALS (10 sets, daily range): BP systolic 120–143; BP diastolic 65–97
[2019-10-21] MEDS ORDERED: TORADOL IV STA (10:32)
[2019-10-21] MEDS ORDERED: NS 1000ML 1,000 ML STA (10:32)
[2019-10-21] MEDS ORDERED: TORADOL ONE (10:44)
[2019-10-21 10:50] LABS: BASOPHIL % 0.2 % (0.0-0.2); EOSINOPHIL # 0.2 10^3/uL (0.0-0.2); EOSINOPHIL % 1.2 % (0.0-5.0); HEMOGLOBIN 11.4 g/dL (12.0-15.0); LYMPHOCYTES # 2.5 10^3/uL (1.0-4.8); LYMPHOCYTES % 14.3 % (24.0-44.0); MEAN CELL HGB 30.3 pg (26-34); MEAN CELL HGB CONCENTRATION 33.5 g/dL (33-37); MEAN CORP VOLUME 90.4 fL (78-100); MEAN PLATELET VOLUME 9.1 fL (7.8-11.0); MONOCYTES # 1.6 10^3/uL (0.3-0.8); MONOCYTES % 9.5 % (5.0-12.0); NEUTROPHIL # 12.8 10^3/uL (1.8-7.7); NEUTROPHILS % 74.4 % (41.0-85.0); RED CELL DISTRIBUTION WIDTH 14.3 % (11.5-14.5); WHITE BLOOD CELL 17.2 10^3/uL (4.5-11.0)
--- NOTE | 2019-10-21 10:51 | ER.PDOC ---
General Chief Complaint: Requesting Medical Care Stated Complaint: CHEST PAIN Time seen by MD: 10:25 Source: patient, EMS Exam Limitations: no limitations History of Present Illness Initial Comments Patient awoke at 5 a.m. today with sharp/stabbing right side. Pain is constant and worse with inspiration. Pain increased when she used her right arm to push up off the bed. There as been no associated nausea or vomiting or diaphoresis. The pain does radiate into her right armpit. Timing/Duration: 4-6 hours Severity/Quality: moderate Radiation: arms (right axilla) Activities at Onset: none Prior CP/Workup: Other (prior chest pain was determined to be related to pneumonia) Nitro Today/Relief: No Nitro Taken Today Aspirin Today: 325 mg x 1 (given by EMS) Associated Symptoms: denies symptoms Prior symptoms/Treatment: Similar symptoms previous (with pneumonia) Allergies: Coded Allergies: celecoxib (Unverified Allergy, Severe, SEIZURES, 02/22/15) cephalexin (Unverified Allergy, Mild, N/V, 02/22/15) Home Meds Reported Medications Prednisolone Sod Phosphate (PREDNISOLONE SODIUM PHOSPHATE) 15 Mg/5 Ml Solution, 1 DROP LEFT EYE TID, #60 MILLILITER 07/28/19 Acetaminophen With Codeine (TYLENOL WITH CODEINE #4 TABLET) 1 Each Tablet, 1 EACH PO Q6, TABLET 07/27/19 Lovastatin (LOVASTATIN) 20 Mg Tablet, 20 MG PO HS, TABLET 07/27/19 Alprazolam (ALPRAZOLAM) 0.5 Mg Tablet, 0.5 MG PO Q8, TABLET 07/27/19 Trazodone Hcl (TRAZODONE HCL) 50 Mg Tablet, 50 TAB PO HS, #30 TAB 07/27/19 Tizanidine Hcl (TIZANIDINE HCL) 4 Mg Tablet, 1 TAB PO BID, #60 TAB 07/27/19 Levothyroxine Sodium (LEVOTHYROXINE SODIUM) 112 Mcg Tablet, 1 TAB PO DAILY, #90 TAB 3 Refills 07/27/19 Albuterol Sulfate (VENTOLIN HFA) 18 Gm Hfa.aer.ad, 18 GM IH Q6HR 03/01/15 Omeprazole Magnesium (PRILOSEC OTC) 20 Mg Tablet.dr, 20 MG PO DAILY 02/22/15 Melatonin (MELATONIN) 5 Mg Tablet, 10 MG PO HS PRN for INSOMNIA, TABLET 02/22/15 Past Medical History Medical History: COPD (uses 3 L oxygen at home; quit smoking a few weeks ago), heart valve disease, thyroid disease Surgical History: cholecystectomy Family History Significant Family History: no pertinent family hx Social History Smoking: quit less than 1 year (within the past few weeks) Drug Use: none Constitutional: no symptoms reported EENTM: no symptoms reported Respiratory: no symptoms reported Cardiovascular: see HPI, chest pain Gastrointestinal: no symptoms reported Musculoskeletal: no symptoms reported Skin: no symptoms reported Physical Exam General Appearance: No Apparent Distress, WD/WN Respiratory: normal breath sounds, no respiratory distress, no accessory muscle use, other (chest pain is reproducible with palpation of upper right chest wall) Gastrointestinal: Normal Bowel Sounds Extremities: No Pedal Edema Neurologic/Psychiatric: Alert, Normal Mood/Affect Skin: Normal Color Lymphatic: No Adenopathy Progress Progress WBC elevated at 17K with increased absolute neutrophils 12.8. EKG/XRAY/CT/US EKG: NSR, no ST T wave changes XRAY: chest (LLL haziness, but appears unchanged from prior studies (08/10, 09/20, 10/09)) CT Comments: cannot exclude PE Consult/PCP Time Consult/PCP Called: 13:31 Consult/PCP: Dr. Garcia will admit for Dr. Frey Departure Time of Disposition: 13:31 Disposition: 09 ADMITTED INPATIENT Impression: Primary Impression: Chest pain Condition: Improved Referrals: ARMIDA FREY MD (PCP) PRIMARY CARE PROVIDER Duration or Time Spent with Pa: 3 hours Problem Qualifiers Primary Impression: Chest pain Chest pain type: other chest pain Qualified Codes: R07.89 - Other chest pain LATASHA FRANKS DO Oct 21, 2019 10:51
--- NOTE | 2019-10-21 10:58 | DIREP ---
PROCEDURE:CHEST 1 VIEW COMPARISON:[facility], CR, XRAY CHEST SINGLE VW, 10/09/2019, 10:16 PM. INDICATIONS:chest pain FINDINGS: LUNGS/PLEURA:Minimal streaky change left lower lung laterally consistent with subsegmental atelectasis. VASCULATURE:Normal. Unremarkable pulmonary vasculature. CARDIAC:Normal. No cardiac silhouette abnormality or cardiomegaly. MEDIASTINUM:Normal. No visible mass or adenopathy. BONES:Normal. No fracture or visible bony lesion. OTHER:Surgical clips right upper quadrant of the abdomen. Monitor leads in place. CONCLUSION:Subsegmental atelectasis left lower lung. No other abnormalities. Dictated by: Triston Morton M.D. on 10/21/2019 at 10:55 AM
--- NOTE | 2019-10-21 11:15 | PCM.EKG ---
[facility] Test Date: 2019-10-21 Test Time: 10:39:54 Pat Name: EDIE MACEDO Department: Room: Gender: F Administrative Professional: RT : 1960 Requested By: LATASHA FRANKS Order Number: [id number] Reading MD: Measurements Intervals [place] Rate: 77 P: 69 IN: 112 QRS: 68 QRSD: 75 T: 81 QT: 386 QTc: 437 Interpretive Statements Sinus rhythm Borderline short [place] interval Probable left atrial enlargement Nonspecific T abnrm, anterolateral leads No previous ECG available for comparison Please click the below link to view image of tracing.
[2019-10-21 11:18] LABS: ALANINE AMINOTRANSFERASE(ML) 26 U/L (12-78); ALKALINE PHOSPHATASE 119 U/L (50-136); ASPARTATE AMINO TRANSFERASE 17 U/L (0-35); CALCIUM 9.1 mg/dL (8.4-10.5); CARBON DIOXIDE 16.8 mmol/L (20.0-32); GLUCOSE 116 mg/dL (70-110)
--- NOTE | 2019-10-21 12:47 | DIREP ---
PROCEDURE:CTA CHEST COMPARISON:[facility], CT, CT CHEST W/CONTRAST, 07/29/2019, 09:05 AM. INDICATIONS:sudden chest pain with elevated Ddimer TECHNIQUE:Post contrast axial images through the chest with multiplanar MIP/3D reconstructions. Bolus is nondiagnostic. The bolus is optimized the evaluation of the thoracic aorta. FINDINGS: PULMONARY ARTERIES:Nondiagnostic examination. LUNGS:No significant pulmonary parenchymal abnormalities. Minimal peripheral scar. Central airways are patent. CARDIAC:Normal size heart and normal pulmonary vascularity. THYROID:Normal. THORACIC AORTA:Normal. MEDIASTINUM:Normal. PLEURA:Normal. BONES:Normal. OTHER:No additional findings. CONCLUSION:Pulmonary emboli cannot be excluded. Contrast bolus was maximized in the thoracic aorta. Lungs reveal minimal dependent scar and atelectasis. Dictated by: Luis Fernando Harris MD on 10/21/2019 at 12:40 PM
--- NOTE | 2019-10-21 13:00 | NUR ---
HOSPITALIST DR FRANKS ON PHONE WITH DR SCHMIDT.
[2019-10-21 13:08] LABS: BILIRUBIN,URINE NEGATIVE (NEGATIVE); UROBILINOGEN,URINE NORMAL (NEGATIVE)
[2019-10-21 13:10] LABS: APPEARANCE,URINE CLEAR (CLEAR); UA COLOR YELLOW (YELLOW)
[2019-10-21] MEDS ORDERED: LOVENOX SQ SCH ×2 (13:30→21:00)
[2019-10-21] MEDS ORDERED: LOVENOX SQ ONE (14:01)
[2019-10-21] MEDS ORDERED: [UNRECOGNIZED DRUG - CODE] TD (14:21)
[2019-10-21] MEDS ORDERED: BECL10PO INH (14:21)
[2019-10-21] MEDS ORDERED: FLUT16SP (14:21)
[2019-10-21] MEDS ORDERED: CITA10TA4 PO (14:21)
[2019-10-21] MEDS ORDERED: MEGE40TA PO (14:21)
[2019-10-21] MEDS ORDERED: TIZA2CAP PO (14:21)
[2019-10-21] MEDS ORDERED: MONT10TA9 PO (14:21)
[2019-10-21] MEDS ORDERED: LEVO88TA5 PO (14:21)
--- NOTE | 2019-10-21 14:40 | NUR ---
admit PT TAKEN TO [facility] IN STABLE CONDITION, REPORT GIVEN TO SHERRY.
[2019-10-21] MEDS ORDERED: SOLU-MEDROL IV STA (14:45)
[2019-10-21] MEDS ORDERED: NS 100ML 100 ML IV ONE (14:57)
[2019-10-21] MEDS: MEROPENEM 500 MG in NS 100ML 100 ML IV SCH ×2 (15:00→21:30)
--- NOTE | 2019-10-21 15:07 | PCM.HP ---
History of Present Illness Reason for Visit: chest pain History of Present Illness Patient is a 59 F PMH of COPD (on 3L O2 @ home), Hypothyroidism, Depression/anxiety, HLD, Atrophic Kidney, and Insomnia who presents with chest pain since this AM. Patient pain is right-sided and sharp. Associated shortness of breath. Pain radiates to the right shoulder. It has resolved since arrival in ER. Patient has no hx of CAD and has never had LHC or Cardiac stress test. Cardiology has been consulted for evaluation. Labs, imaging reviewed. EKG negative for acute ischemic changes. Trop negative x 1. Patient in acute COPD exacerbation. Patient started on IV steroids, Nebs, O2 support on medical floor. Patient also likely has Pneumonia. She is afebrile but has Leukocytosis and RR of 20. STAT Blood cx ordered and patient started on IV abx with IVF. Patient had elevated D-Dimer in ER and had CTA ordered to rule out PE but study was inconclusive 2/2 inappropriate timing after administration of contrast bolus. I discussed findings with Radiologist. VQ scan ordered for in AM. CXR reviewed and patient has atelectasis infiltrate in LLL. I discussed plan of care with patient and she verbalized understanding/agreement. Past Medical History Cardiac: Hyperlipidemia Pulmonary: COPD Psychiatric: Anxiety, Depression Endocrine: Hypothyroidism Past Surgical History: Cholecystectomy, , Other (R knee) Past Social History Smoke: Quit Alcohol: none Drugs: None Lives: with Family Travel Hx EBOLA RISK:Travel to/contact w: No Is pt experiencing any Ebola s: No Review of Systems Constitutional: No: Fever, Chills Eyes: No: Conjunctivae inflammation, Eyelid inflammation ENT: Nose discharge, Nose congestion Respiratory: Cough, Dry, Shortness of breath, SOB with excertion, Wheezing Cardiovascular: Chest Pain; No: Palpitations, Edema Gastrointestinal: No: Nausea, Vomiting, Abdominal Pain Genitourinary: No Incontinence, No Retention Musculoskeletal: neck pain; No: back pain Skin: No: Rash, Lesions, Jaundice, Bruising Neurological: Weakness; No: Numbness, Incoordination, Change in speech, Confusion, Seizures Allergies: Coded Allergies: celecoxib (Unverified Allergy, Severe, SEIZURES, 02/22/15) cephalexin (Unverified Allergy, Mild, N/V, 02/22/15) Scheduled Acetaminophen With Codeine (Tylenol With Codeine #4 Tablet), 1 EACH PO Q6, (Reported) Albuterol Sulfate (Ventolin Hfa), 18 GM IH Q6HR, (Reported) Alprazolam (Alprazolam), 0.5 MG PO Q8, (Reported) Beclomethasone Dipropionate (Beclomethasone Dipropionate), 80 MCG INH BID, (Reported) Citalopram Hydrobromide (Citalopram Hbr), 1 TAB PO DAILY, (Reported) Fluticasone Propionate (Fluticasone Propionate), 2 SPR NA BID, (Reported) Levothyroxine Sodium (Levothyroxine Sodium), 1 TAB PO DAILY, (Reported) Lovastatin (Lovastatin), 20 MG PO HS, (Reported) Megestrol Acetate (Megestrol Acetate), 120 MG PO DAILY24, (Reported) Montelukast Sodium (Montelukast Sodium), 1 TAB PO HS, (Reported) Nicotine (Nicotine Patch), 1 EACH TD DAILY24, (Reported) Omeprazole Magnesium (Prilosec Otc), 20 MG PO DAILY, (Reported) Tizanidine Hcl (Tizanidine Hcl), 2 MG PO Q8HR, (Reported) Trazodone Hcl (Trazodone Hcl), 50 TAB PO HS, (Reported) Discontinued Medications Levothyroxine Sodium (Levothyroxine Sodium), 1 TAB PO DAILY, (Reported) Discontinued Reason: Prescription changed Melatonin (Melatonin), 10 MG PO HS PRN for INSOMNIA, (Reported) Discontinued Reason: No Longer Taking Prednisolone Sod Phosphate (Prednisolone Sodium Phosphate), 1 DROP LEFT EYE TID, (Reported) Discontinued Reason: No Longer Taking Tizanidine Hcl (Tizanidine Hcl), 1 TAB PO BID, (Reported) Discontinued Reason: Prescription changed VTE VTE Risk Total Score: 1 VTE Risk Score VTE Risk: Score 0-1 = Low Risk (Aggressive mobilization; early ambulation; no VTE prophylaxis required) Score 2: Moderate Risk (Intermittent/Pneumatic Compression Device OR Lovenox/Heparin/Coumadin) Score 3-4: High Risk (Intermittent/Pneumatic Compression Device AND Lovenox/Heparin/Coumadin) Score > or =5: Highest Risk (Intermittent/Pneumatic Compression Device AND Lovenox/Heparin/Coumadin) Antico:Hep/LMWH/Coum/Xarelto: No Mechanical device ordered: No VTE VTE Present on Admission: No Currently receiving anticoagul: No VTE Risk Total Score: 1 Antico:Hep/LMWH/Coum/Xarelto: No Mechanical device ordered: No Exam Vital Signs Vital Signs Date Time Temp Pulse Resp B/P (MAP) Pulse Ox O2 Delivery O2 Flow Rate FiO2 10/21/19 14:35 78 20 120/65 (83) 99 Room Air 10/21/19 10:21 97.9 General Appearance: Alert, Oriented X3, Cooperative, No acute distress HEENT: Atraumatic, PERRLA, EOMI, Mucous membr. moist/pink Respiratory: Other (diffuse wheezing, decreased aeration) Cardiovascular: Regular rate, Normal S1, Normal S2, No murmurs Abdominal: Normal bowel sounds, Soft, No tenderness Extremities: No edema, Normal pulses, No tenderness/swelling Skin: No rash, No breakdown, No lesions Neuro: Normal speech, Normal tone, Sensation intact, Cranial nerves 3-12 NL Psych/Mental Status: Mental status NL, Mood NL Assessment/Plan Assessment/Plan Assessment/Plan Patient is a 59 F PMH of COPD (on 3L O2 @ home), Hypothyroidism, Depression/anxiety, HLD, Atrophic Kidney, and Insomnia who presents with chest pain since this AM. Patient History: Asthma G8 SISTER, , Age:54 19 CHILD Chronic obstructive pulmonary disease G8 SISTER, , Age:54 G8 SISTER, , Age:54 Congestive heart failure 32 MOTHER, , Age:54 G8 SISTER, , Age:54 G8 BROTHER, , Age:52 FH: alcoholism G8 SISTER, , Age:54 G8 BROTHER, , Age:52 FH: blindness 33 FATHER, , Age:92 FHx: leukemia G8 SISTER, , Age:54 Hypertension 32 MOTHER, , Age:54 Unknown 32 MOTHER, , Age:54 No Family History of: Alzheimer's disease Cerebrovascular disorder Diabetes insipidus Diabetes mellitus Parkinson's disease Plan 1. Chest pain: Trop negative x 1. EKG negative for acute ischemic changes. Cardiology consulted, CTA not conclusive. Will order VQ can for AM. We will continue therapeutic lovenox until PE ruled out. Trend troponin and monitor closely. Lipid Panel, HgA1C ordered. Cont ASA/Statin. 2. Community Acquired Pneumonia/COPD exacerbation: cont O2 support, Nebs, IV steroids, IV abx and monitor. Blood cx ordered. 3. Metabolic Acidosis: unknown etiology. Hx of Poor PO intake. Cont IVF and order Nutrition screening. Treat infection/lung disease. Repeat metabolic panel in AM. 4. Hypothyroidism; cont Synthroid 5. HLD: cont Statin, pending Lipid panel 6. Hx of Atrophic Kidney: hold Nephrotoxic agents. Will avoid further contrast. 7. PPx: Lovenox, PPI 8. Depression/Anxiety: cont Xanax, SSRI ANH SCHMIDT MD Oct 21, 2019 15:07
[2019-10-21] MEDS ORDERED: DUO 0.5-3(2.5) MG/3 ML IH ONE (15:32)
[2019-10-21] MEDS: NS 1000ML/KCL 20MEQ 1,000 ML IV SCH (15:40)
[2019-10-21] MEDS: DUO 0.5-3(2.5) MG/3 ML IH SCH ×2 (16:17→20:38)
[2019-10-21] MEDS: TYLENOL #4 PO SCH (18:13)
[2019-10-21] MEDS: DESYREL PO SCH (20:34)
[2019-10-21] MEDS: SINGULAIR PO SCH (20:35)
[2019-10-21] MEDS: LIPITOR PO SCH (20:35)
[2019-10-21] MEDS ORDERED: LANOLIN HYDROUS TP ONE (21:14)
[2019-10-21] MEDS: SOLU-MEDROL IV SCH (21:30)
[2019-10-21] MEDS: ZANAFLEX PO SCH (21:30)
[2019-10-21] MEDS: XANAX PO SCH (21:30)
[2019-10-21] MEDS: FLONASE NS SCH (21:30)
[2019-10-22] MEDS: DUO 0.5-3(2.5) MG/3 ML IH SCH ×6 (00:08→20:38)
[2019-10-22] MEDS: TYLENOL #4 PO SCH ×4 (00:15→17:40)
[2019-10-22 00:22] VITALS: BP 101/61
[2019-10-22] MEDS: NS 1000ML/KCL 20MEQ 1,000 ML IV SCH (01:07)
--- NOTE | 2019-10-22 03:38 | CNH ---
DATE OF CONSULTATION: 10/21/2019 REASON FOR CONSULTATION: Chest pain. HISTORY OF PRESENT ILLNESS: This is a 59-year-old female who presented to the Emergency Department at [facility] with symptoms of right-sided chest pain with radiation to the shoulder and right upper extremity. She states that her symptoms started this morning and progressively got worse that prompted her to present to the ED. Upon presentation, the patient was noted to be in acute COPD exacerbation. White cell count was noted to be significantly elevated. EKG shows no evidence of acute ischemia. She denies any cardiac history and has not had any recent cardiac ischemic workup. She did, however, indicate that she has been told in the past that she has a leaky mitral valve. Troponin is negative x 2. PAST MEDICAL HISTORY: 1. COPD, on home oxygen (3 liters). 2. Hyperlipidemia. 3. Anxiety. 4. Depression. 5. Hypothyroidism. 6. Recurrent pneumonia. PAST SURGICAL HISTORY: Cholecystectomy and . ALLERGIES: CEPHALEXIN and CELECOXIB. MEDICATIONS: She takes at home alprazolam, citalopram, fluticasone, levothyroxine, lovastatin, trazodone, tizanidine, albuterol, beclomethasone. SOCIAL HISTORY: Quit tobacco use 2 months ago. Denies alcohol or illicit drug use. FAMILY HISTORY: Denies any family history of premature coronary artery disease or sudden cardiac . REVIEW OF SYSTEMS: All systems reviewed and negative for interval change. PHYSICAL EXAMINATION: VITAL SIGNS: Blood pressure is 120/65, respiratory rate is 20, pulse rate is 78, temperature 97.9, pulse ox is 100% on 3 liters. GENERAL: She is in no apparent distress, alert and oriented x 3. HEENT: Normocephalic, atraumatic. Extraocular muscles intact. CARDIAC: S1, S2. No gallops, murmurs, rubs, or clicks. LUNGS: Decreased breath sounds bilaterally with bilateral wheezing. ABDOMEN: Soft, nontender, nondistended, positive bowel sounds in all 4 quadrants. EXTREMITIES: No cyanosis, no clubbing, no edema, +2 pedal pulses noted bilaterally. NEUROLOGIC: No neurological deficits. IMPRESSION: 1. Chest pain, rule out acute coronary syndrome. 2. Acute chronic obstructive pulmonary disease exacerbation. 3. Possible community-acquired pneumonia. 4. Elevated white blood cell count. 5. Hyperlipidemia. 6. Recent tobacco cessation (2 months ago). 7. Reported mitral regurgitation. RECOMMENDATION: At this time, we will obtain 2D echo to evaluate the left ventricular ejection fraction and the structural integrity of the heart. We would also continue aspirin as well as statin therapy at this time. We will hold off on beta blockers at this time in the setting of acute COPD exacerbation. The patient does have risk factors of coronary artery disease and also would benefit from a cardiac ischemic workup. We will set the patient up for a cardiac Lexiscan stress test when respiratory status returns to baseline. Agree with current treatment of COPD. Further recommendations from a cardiac perspective will be made based on the outcome of cardiac testing. Thank you for allowing me to participate in the care of this patient. ASHLEY MUNOZ D.O. DR: Lisbeth JOB# [id number]
[2019-10-22 05:04] LABS: BASOPHIL % 0.1 % (0.0-0.2); HEMOGLOBIN 10.6 g/dL (12.0-15.0); LYMPHOCYTES # 0.7 10^3/uL (1.0-4.8); LYMPHOCYTES % 4.5 % (24.0-44.0); MEAN CELL HGB 30.1 pg (26-34); MEAN CELL HGB CONCENTRATION 32.8 g/dL (33-37); MEAN CORP VOLUME 91.8 fL (78-100); MEAN PLATELET VOLUME 9.6 fL (7.8-11.0); MONOCYTES # 0.2 10^3/uL (0.3-0.8); MONOCYTES % 1.1 % (5.0-12.0); NEUTROPHIL # 15.1 10^3/uL (1.8-7.7); NEUTROPHILS % 93.9 % (41.0-85.0); RED CELL DISTRIBUTION WIDTH 14.3 % (11.5-14.5); WHITE BLOOD CELL 16.1 10^3/uL (4.5-11.0)
[2019-10-22 05:21] LABS: CALCIUM 8.8 mg/dL (8.4-10.5); CARBON DIOXIDE 14.4 mmol/L (20.0-32)
[2019-10-22 05:50] LABS: LYMPHOCYTE 4 % (25-36); SEGMENTED NEUTROPHILS 96 % (31-76)
[2019-10-22] MEDS: MEROPENEM 500 MG in NS 100ML 100 ML IV SCH ×2 (06:01→15:17)
[2019-10-22] MEDS: SOLU-MEDROL IV SCH ×3 (06:01→21:15)
[2019-10-22] MEDS: XANAX PO SCH ×4 (06:01→21:16)
[2019-10-22] MEDS: SYNTHROID PO SCH (06:01)
[2019-10-22] MEDS: ZANAFLEX PO SCH ×3 (06:01→21:16)
--- NOTE | 2019-10-22 06:13 | NUR ---
NOTIFIED DR SCHMIDT POTASSIUM IS 5.9
[2019-10-22] MEDS ORDERED: NS 1000ML 1,000 ML IV SCH (06:30)
[2019-10-22 08:00] VITALS: BP 128/65
--- NOTE | 2019-10-22 08:20 | NUR ---
CONTI PLACEMENT 16 FR CONTI INSERTED USING STRICT STERILE TECHNIQUE. CLEAR YELLOW URINE RETURNED. TIMI CARE PROVIDED. EDUCATED PT ON CATHETER PRECAUTIONS. PT ABLE TO VERBALIZE UNDERSTANDING. CATHETER SECURED TO LEFT LEG.
[2019-10-22 08:23] LABS: ABG PH 7.306 (7.350-7.450); BE(B) -11.7 mmol/L (-2.0-2.0); HCO3act 13.2 mmol/L (22.0-26.0); pO2 100.2 mmHg (80.0-100.0)
--- NOTE | 2019-10-22 08:27 | PRM.PN ---
Subjective Subjective Date: Oct 22, 2019 Time: 08:00 Subjective Patient labs show elevated K and worsening of acidosis. Patient tachycardic overnight and increased respiratory rate. Patient is septic. STAT ABG/Lactic Acid ordered. NS bolus x 2 ordered. Patient has been seen by Cardiology. Her lungs are more clear this AM. Pending VQ scan. Patient History: Asthma G8 SISTER, , Age:54 19 CHILD Chronic obstructive pulmonary disease G8 SISTER, , Age:54 G8 SISTER, , Age:54 Congestive heart failure 32 MOTHER, , Age:54 G8 SISTER, , Age:54 G8 BROTHER, , Age:52 FH: alcoholism G8 SISTER, , Age:54 G8 BROTHER, , Age:52 FH: blindness 33 FATHER, , Age:92 FHx: leukemia G8 SISTER, , Age:54 Hypertension 32 MOTHER, , Age:54 Unknown 32 MOTHER, , Age:54 No Family History of: Alzheimer's disease Cerebrovascular disorder Diabetes insipidus Diabetes mellitus Parkinson's disease VTE VTE Risk Total Score: 3 VTE Risk Score VTE Risk: Score 0-1 = Low Risk (Aggressive mobilization; early ambulation; no VTE prophylaxis required) Score 2: Moderate Risk (Intermittent/Pneumatic Compression Device OR Lovenox/Heparin/Coumadin) Score 3-4: High Risk (Intermittent/Pneumatic Compression Device AND Lovenox/Heparin/Coumadin) Score > or =5: Highest Risk (Intermittent/Pneumatic Compression Device AND Lovenox/Heparin/Coumadin) Antico:Hep/LMWH/Coum/Xarelto: No Mechanical device ordered: No Review of Systems Allergies: Coded Allergies: celecoxib (Unverified Allergy, Severe, SEIZURES, 02/22/15) cephalexin (Unverified Allergy, Mild, N/V, 02/22/15) Scheduled Acetaminophen With Codeine (Tylenol With Codeine #4 Tablet), 1 EACH PO Q6, (Reported) Albuterol Sulfate (Ventolin Hfa), 18 GM IH Q6HR, (Reported) Alprazolam (Alprazolam), 0.5 MG PO Q8, (Reported) Beclomethasone Dipropionate (Beclomethasone Dipropionate), 80 MCG INH BID, (Reported) Citalopram Hydrobromide (Citalopram Hbr), 1 TAB PO DAILY, (Reported) Fluticasone Propionate (Fluticasone Propionate), 2 SPR NA BID, (Reported) Levothyroxine Sodium (Levothyroxine Sodium), 1 TAB PO DAILY, (Reported) Lovastatin (Lovastatin), 20 MG PO HS, (Reported) Megestrol Acetate (Megestrol Acetate), 120 MG PO DAILY24, (Reported) Montelukast Sodium (Montelukast Sodium), 1 TAB PO HS, (Reported) Nicotine (Nicotine Patch), 1 EACH TD DAILY24, (Reported) Omeprazole Magnesium (Prilosec Otc), 20 MG PO DAILY, (Reported) Tizanidine Hcl (Tizanidine Hcl), 2 MG PO Q8HR, (Reported) Trazodone Hcl (Trazodone Hcl), 50 TAB PO HS, (Reported) Discontinued Medications Levothyroxine Sodium (Levothyroxine Sodium), 1 TAB PO DAILY, (Reported) Discontinued Reason: Prescription changed Melatonin (Melatonin), 10 MG PO HS PRN for INSOMNIA, (Reported) Discontinued Reason: No Longer Taking Prednisolone Sod Phosphate (Prednisolone Sodium Phosphate), 1 DROP LEFT EYE TID, (Reported) Discontinued Reason: No Longer Taking Tizanidine Hcl (Tizanidine Hcl), 1 TAB PO BID, (Reported) Discontinued Reason: Prescription changed Objective Vitals and I/O Vital Sign - Last 24 Hours 10/21/19 10/21/19 10/21/19 10/21/19 10:21 10:21 10:21 11:16 Temp 97.9 97.9 97.9 Pulse 78 78 78 Resp 20 16 20 B/P (MAP) 120/65 (83) 130/74 (92) Pulse Ox 99 99 O2 Delivery Room Air 10/21/19 10/21/19 10/21/19 10/21/19 11:21 11:45 12:29 12:30 Pulse 80 Resp 29 B/P (MAP) 139/72 (94) 138/73 (94) 139/74 (95) Pulse Ox 99 10/21/19 10/21/19 10/21/19 10/21/19 12:45 13:00 14:35 15:20 Pulse 78 Resp 20 18 B/P (MAP) 133/71 (91) 143/82 (102) 120/65 (83) Pulse Ox 99 99 O2 Delivery Room Air 10/21/19 10/21/19 10/21/19 10/21/19 15:27 16:17 16:17 16:41 Temp 98.2 Pulse 78 80 89 77 Resp 18 20 20 20 B/P (MAP) 136/78 (97) Pulse Ox 99 99 98 100 O2 Delivery Nasal Cannula Nasal Canula O2 Flow Rate 2.00 3.00 10/21/19 10/21/19 10/21/19 10/21/19 16:45 20:30 20:38 21:42 Pulse 77 80 Resp 20 22 Pulse Ox 100 97 O2 Delivery Nasal Cannula Nasal Cannula O2 Flow Rate 3.00 3.00 10/21/19 10/21/19 10/22/19 10/22/19 22:18 22:32 00:08 00:11 Temp 98.1 Pulse 101 101 83 83 Resp 22 22 18 18 B/P (MAP) 141/97 (112) Pulse Ox 96 96 97 97 O2 Delivery Nasal Canula Nasal Cannula O2 Flow Rate 3.00 2.50 10/22/19 10/22/19 10/22/19 00:22 04:04 04:07 Temp 98.3 Pulse 113 95 95 Resp 20 15 15 B/P (MAP) 101/61 (74) Pulse Ox 94 93 93 O2 Delivery Nasal Canula O2 Flow Rate 3.00 General: Alert, Oriented X3, Cooperative, No acute distress HEENT: Atraumatic, PERRLA, EOMI, Mucous membr. moist/pink Neck: Supple, No JVD Lungs: Other (diffuse wheezing, decreased aeration but improved since yesterday) Heart: Normal S1, Normal S2, No murmurs Abdomen: Normal bowel sounds, Soft, No tenderness Extremities: No edema, Normal pulses, No tenderness/swelling Skin: No rashes, No breakdown, No significant lesion Neuro: Normal speech, Strength at 5/5 X4 ext, Normal tone, Sensation intact, Cranial nerves 3-12 NL Psych/Mental Status: Mental status NL, Mood NL All Results(Lab/Rad) Laboratory Tests Test 10/21/19 10:45 10/21/19 12:57 10/21/19 15:12 10/21/19 22:50 White Blood Count 17.2 10^3/uL Red Blood Count 3.76 10^6/uL Hemoglobin 11.4 g/dL Hematocrit 34.0 % Mean Corpuscular Volume 90.4 fL Mean Corpuscular Hemoglobin 30.3 pg Mean Corpuscular Hemoglobin Concent 33.5 g/dL Red Cell Distribution Width 14.3 % Platelet Count 453 10^3/uL Mean Platelet Volume 9.1 fL Neutrophils (%) (Auto) 74.4 % Lymphocytes (%) (Auto) 14.3 % Monocytes (%) (Auto) 9.5 % Neutrophils # (Auto) 12.8 10^3/uL Lymphocytes # (Auto) 2.5 10^3/uL Monocytes # (Auto) 1.6 10^3/uL Absolute Immature Granulocyte (auto 0.07 10^3 u/L Immature Granulocytes % 0.40 % Eosinophils % 1.2 % Basophils % 0.2 % Basophils # 0.0 10^3/uL Eosinophil Count 0.2 10^3/uL Prothrombin Time 10.0 SEC Prothrombin Time INR (Non-Therap) 1.0 Activated Partial Thromboplast Time 23.3 SEC D-Dimer 0.99 mg/L Sodium Level 133 mmol/L Potassium Level 3.9 mmol/L Chloride Level 104.0 mmol/L Carbon Dioxide Level 16.8 mmol/L Anion Gap 16.1 Blood Urea Nitrogen 22 mg/dL Creatinine 1.17 mg/dL Estimated GFR () 57.7 BUN/Creatinine Ratio 18.0 Glucose Level 116 mg/dL Calcium Level 9.1 mg/dL Total Bilirubin 0.2 mg/dL Aspartate Amino Transf (AST/SGOT) 17 U/L Alanine Aminotransferase (ALT/SGPT) 26 U/L Alkaline Phosphatase 119 U/L Total Creatine Kinase 55 U/L Creatine Kinase MB < 0.5 ng/mL Troponin I < 0.02 ng/mL < 0.02 ng/mL < 0.02 ng/mL Pro-B-Type Natriuretic Peptide 139 pg/mL Total Protein 6.6 g/dL Albumin 3.6 g/dL Globulin 3.0 Helicobacter pylori Screen NEGATIVE Urine Collection Type UNKNOWN Urine Color YELLOW Urine Appearance CLEAR Urine Bilirubin NEGATIVE MG/DL Urine Ketones NEGATIVE Urine Specific [place] 1.010 Urine pH 6.5 Urine Protein NEGATIVE Urine Urobilinogen NORMAL Urine Nitrate NEGATIVE Urine Leukocyte Esterase NEGATIVE Urine Blood NEGATIVE Urine Glucose NORMAL Hemoglobin A1c 5.6 % Triglycerides Level 63 mg/dL Cholesterol Level 143 mg/dL LDL Cholesterol, Calculated 91.4 VLDL Cholesterol 12.6 HDL Cholesterol 39 mg/dL Cholesterol Ratio (LDL/HDL) Test 10/22/19 04:52 10/22/19 05:10 10/22/19 06:33 White Blood Count 16.1 10^3/uL Red Blood Count 3.52 10^6/uL Hemoglobin 10.6 g/dL Hematocrit 32.3 % Mean Corpuscular Volume 91.8 fL Mean Corpuscular Hemoglobin 30.1 pg Mean Corpuscular Hemoglobin Concent 32.8 g/dL Red Cell Distribution Width 14.3 % Platelet Count 384 10^3/uL Mean Platelet Volume 9.6 fL Neutrophils (%) (Auto) 93.9 % Lymphocytes (%) (Auto) 4.5 % Monocytes (%) (Auto) 1.1 % Neutrophils # (Auto) 15.1 10^3/uL Lymphocytes # (Auto) 0.7 10^3/uL Monocytes # (Auto) 0.2 10^3/uL Absolute Immature Granulocyte (auto 0.07 10^3 u/L Immature Granulocytes % 0.40 % Eosinophils % 0.0 % Basophils % 0.1 % Basophils # 0.0 10^3/uL Eosinophil Count 0.0 10^3/uL Sodium Level 133 mmol/L Potassium Level 5.9 mmol/L 5.0 mmol/L Chloride Level 105.0 mmol/L Carbon Dioxide Level 14.4 mmol/L Anion Gap 19.5 Blood Urea Nitrogen 18 mg/dL Creatinine 1.57 mg/dL Estimated GFR () 41.1 BUN/Creatinine Ratio 11.0 Glucose Level 306 mg/dL Calcium Level 8.8 mg/dL Total Bilirubin 0.2 mg/dL Aspartate Amino Transf (AST/SGOT) 16 U/L Alanine Aminotransferase (ALT/SGPT) 30 U/L Alkaline Phosphatase 107 U/L Total Protein 6.6 g/dL Albumin 3.2 g/dL Globulin 3.4 Differential Total Cells Counted 100 #CELLS Segmented Neutrophils 96 % Lymphocytes 4 % Platelet Estimate ADEQUATE Platelet Morphology NORMAL Blood Morphology Comment NORMAL MORPHOLOGY Current Medications Medications (Trade) Dose Ordered Sig/Krystle Route PRN Reason Start Time Stop Time Status Last Admin Dose Admin Ketorolac Tromethamine (Toradol) 30 mg STAT STAT IV 10/21/19 10:32 10/21/19 14:44 DC 10/21/19 10:57 Sodium Chloride 1,000 ml @ 0 mls/hr Q0M STAT IV 10/21/19 10:32 10/21/19 14:43 DC 10/21/19 10:57 Ketorolac Tromethamine (Toradol) 30 mg STK-MED ONCE .ROUTE 10/21/19 10:44 10/21/19 10:46 DC Enoxaparin Sodium (Lovenox) 70 mg OT SQ 10/21/19 13:30 10/22/19 08:17 DC 10/21/19 14:24 Aspirin (Aspirin Ec) 81 mg DAILY PO 10/22/19 09:00 11/21/19 08:59 Enoxaparin Sodium (Lovenox) 70 mg BID SQ 10/21/19 21:00 10/22/19 08:10 DC 10/21/19 20:34 Enoxaparin Sodium (Lovenox) 80 mg STK-MED ONCE SQ 10/21/19 14:01 10/21/19 14:02 DC Pantoprazole Sodium (Protonix) 40 mg DAILY PO 10/22/19 09:00 11/21/19 08:59 Potassium Chloride/Sodium Chloride 1,000 ml @ 100 mls/hr Q10H IV 10/21/19 15:00 10/22/19 06:27 DC 10/22/19 01:07 Albuterol/ Ipratropium (Duo 0.5-3(2.5) Mg/3 ml) 3 ml RTQ4 IH 10/21/19 17:00 11/20/19 16:59 10/22/19 04:03 Methylprednisolone Sodium Succinate (Solu-Medrol) 40 mg Q8HR IV 10/21/19 22:00 11/20/19 21:59 10/22/19 06:01 Methylprednisolone Sodium Succinate (Solu-Medrol) 80 mg STAT STAT IV 10/21/19 14:45 10/21/19 15:01 DC 10/21/19 14:45 Pantoprazole Sodium (Protonix Iv) 40 mg DAILY IV 10/22/19 09:00 11/21/19 08:59 Meropenem 500 mg/ Sodium Chloride 100 ml @ 200 mls/hr Q8H IV 10/21/19 15:00 11/20/19 14:59 10/22/19 06:01 Acetaminophen/ Codeine Phosphate (Tylenol #4) 1 tablet Q6 PO 10/21/19 18:00 11/20/19 17:59 10/22/19 06:02 Alprazolam (Xanax) 0.5 mg Q8 PO 10/21/19 22:00 11/20/19 21:59 10/22/19 06:01 Citalopram Hydrobromide (CeleXA) 10 mg DAILY PO 10/22/19 09:00 11/21/19 08:59 Fluticasone Propionate (Flonase) 2 sprays BID NS 10/21/19 21:00 11/20/19 20:59 10/21/19 21:30 Levothyroxine Sodium (Synthroid) 88 mcg ACB PO 10/22/19 06:30 11/21/19 06:29 10/22/19 06:01 Atorvastatin Calcium (Lipitor) 5 mg HS PO 10/21/19 21:00 11/20/19 20:59 10/21/19 20:35 Montelukast Sodium (Singulair) 10 mg HS PO 10/21/19 21:00 11/20/19 20:59 10/21/19 20:35 Trazodone HCl (Desyrel) 50 mg HS PO 10/21/19 21:00 11/20/19 20:59 10/21/19 20:34 Tizanidine HCl (Zanaflex) 2 mg Q8HR PO 10/21/19 22:00 11/20/19 21:59 10/22/19 06:01 Sodium Chloride 100 ml @ ud STK-MED ONCE IV 10/21/19 14:57 10/21/19 14:59 DC Albuterol/ Ipratropium (Duo 0.5-3(2.5) Mg/3 ml) 3 ml STK-MED ONCE IH 10/21/19 15:32 10/21/19 15:34 DC Lanolin (Lanolin Hydrous) 28 gm STK-MED ONCE TP 10/21/19 21:14 10/21/19 21:16 DC Sodium Chloride 1,000 ml @ 100 mls/hr Q10H IV 10/22/19 06:30 11/21/19 06:29 Sodium Chloride 1,000 ml @ 0 mls/hr Q0M ONCE IV 10/22/19 08:30 10/22/19 08:31 Enoxaparin Sodium (Lovenox) 67 mg DAILY SQ 10/22/19 09:00 11/20/19 20:59 Sodium Chloride 1,000 ml @ 0 mls/hr Q0M ONCE IV 10/22/19 08:30 10/22/19 08:31 UNV Course Sepsis Screening Results: Posi: POSITIVE++ Sepsis Qualifier/Stage: SEVERE SEPSIS RISK Duration or Total Time Spent w: 3 hours Vitals & review Data Vital Sign - Last 24 Hours 10/21/19 10/21/19 10/21/19 10/21/19 10:21 10:21 10:21 11:16 Temp 97.9 97.9 97.9 Pulse 78 78 78 Resp 20 16 20 B/P (MAP) 120/65 (83) 130/74 (92) Pulse Ox 99 99 O2 Delivery Room Air 10/21/19 10/21/19 10/21/19 10/21/19 11:21 11:45 12:29 12:30 Pulse 80 Resp 29 B/P (MAP) 139/72 (94) 138/73 (94) 139/74 (95) Pulse Ox 99 10/21/19 10/21/19 10/21/19 10/21/19 12:45 13:00 14:35 15:20 Pulse 78 Resp 20 18 B/P (MAP) 133/71 (91) 143/82 (102) 120/65 (83) Pulse Ox 99 99 O2 Delivery Room Air 10/21/19 10/21/19 10/21/19 10/21/19 15:27 16:17 16:17 16:41 Temp 98.2 Pulse 78 80 89 77 Resp 18 20 20 20 B/P (MAP) 136/78 (97) Pulse Ox 99 99 98 100 O2 Delivery Nasal Cannula Nasal Canula O2 Flow Rate 2.00 3.00 10/21/19 10/21/19 10/21/19 10/21/19 16:45 20:30 20:38 21:42 Pulse 77 80 Resp 20 22 Pulse Ox 100 97 O2 Delivery Nasal Cannula Nasal Cannula O2 Flow Rate 3.00 3.00 10/21/19 10/21/19 10/22/19 10/22/19 22:18 22:32 00:08 00:11 Temp 98.1 Pulse 101 101 83 83 Resp 22 22 18 18 B/P (MAP) 141/97 (112) Pulse Ox 96 96 97 97 O2 Delivery Nasal Canula Nasal Cannula O2 Flow Rate 3.00 2.50 10/22/19 10/22/19 10/22/19 00:22 04:04 04:07 Temp 98.3 Pulse 113 95 95 Resp 20 15 15 B/P (MAP) 101/61 (74) Pulse Ox 94 93 93 O2 Delivery Nasal Canula O2 Flow Rate 3.00 Laboratory Tests Test 10/21/19 10:45 10/21/19 12:57 10/21/19 15:12 10/21/19 22:50 White Blood Count 17.2 10^3/uL Red Blood Count 3.76 10^6/uL Hemoglobin 11.4 g/dL Hematocrit 34.0 % Mean Corpuscular Volume 90.4 fL Mean Corpuscular Hemoglobin 30.3 pg Mean Corpuscular Hemoglobin Concent 33.5 g/dL Red Cell Distribution Width 14.3 % Platelet Count 453 10^3/uL Mean Platelet Volume 9.1 fL Neutrophils (%) (Auto) 74.4 % Lymphocytes (%) (Auto) 14.3 % Monocytes (%) (Auto) 9.5 % Neutrophils # (Auto) 12.8 10^3/uL Lymphocytes # (Auto) 2.5 10^3/uL Monocytes # (Auto) 1.6 10^3/uL Absolute Immature Granulocyte (auto 0.07 10^3 u/L Immature Granulocytes % 0.40 % Eosinophils % 1.2 % Basophils % 0.2 % Basophils # 0.0 10^3/uL Eosinophil Count 0.2 10^3/uL Prothrombin Time 10.0 SEC Prothrombin Time INR (Non-Therap) 1.0 Activated Partial Thromboplast Time 23.3 SEC D-Dimer 0.99 mg/L Sodium Level 133 mmol/L Potassium Level 3.9 mmol/L Chloride Level 104.0 mmol/L Carbon Dioxide Level 16.8 mmol/L Anion Gap 16.1 Blood Urea Nitrogen 22 mg/dL Creatinine 1.17 mg/dL Estimated GFR () 57.7 BUN/Creatinine Ratio 18.0 Glucose Level 116 mg/dL Calcium Level 9.1 mg/dL Total Bilirubin 0.2 mg/dL Aspartate Amino Transf (AST/SGOT) 17 U/L Alanine Aminotransferase (ALT/SGPT) 26 U/L Alkaline Phosphatase 119 U/L Total Creatine Kinase 55 U/L Creatine Kinase MB < 0.5 ng/mL Troponin I < 0.02 ng/mL < 0.02 ng/mL < 0.02 ng/mL Pro-B-Type Natriuretic Peptide 139 pg/mL Total Protein 6.6 g/dL Albumin 3.6 g/dL Globulin 3.0 Helicobacter pylori Screen NEGATIVE Urine Collection Type UNKNOWN Urine Color YELLOW Urine Appearance CLEAR Urine Bilirubin NEGATIVE MG/DL Urine Ketones NEGATIVE Urine Specific [place] 1.010 Urine pH 6.5 Urine Protein NEGATIVE Urine Urobilinogen NORMAL Urine Nitrate NEGATIVE Urine Leukocyte Esterase NEGATIVE Urine Blood NEGATIVE Urine Glucose NORMAL Hemoglobin A1c 5.6 % Triglycerides Level 63 mg/dL Cholesterol Level 143 mg/dL LDL Cholesterol, Calculated 91.4 VLDL Cholesterol 12.6 HDL Cholesterol 39 mg/dL Cholesterol Ratio (LDL/HDL) Test 10/22/19 04:52 10/22/19 05:10 10/22/19 06:33 White Blood Count 16.1 10^3/uL Red Blood Count 3.52 10^6/uL Hemoglobin 10.6 g/dL Hematocrit 32.3 % Mean Corpuscular Volume 91.8 fL Mean Corpuscular Hemoglobin 30.1 pg Mean Corpuscular Hemoglobin Concent 32.8 g/dL Red Cell Distribution Width 14.3 % Platelet Count 384 10^3/uL Mean Platelet Volume 9.6 fL Neutrophils (%) (Auto) 93.9 % Lymphocytes (%) (Auto) 4.5 % Monocytes (%) (Auto) 1.1 % Neutrophils # (Auto) 15.1 10^3/uL Lymphocytes # (Auto) 0.7 10^3/uL Monocytes # (Auto) 0.2 10^3/uL Absolute Immature Granulocyte (auto 0.07 10^3 u/L Immature Granulocytes % 0.40 % Eosinophils % 0.0 % Basophils % 0.1 % Basophils # 0.0 10^3/uL Eosinophil Count 0.0 10^3/uL Sodium Level 133 mmol/L Potassium Level 5.9 mmol/L 5.0 mmol/L Chloride Level 105.0 mmol/L Carbon Dioxide Level 14.4 mmol/L Anion Gap 19.5 Blood Urea Nitrogen 18 mg/dL Creatinine 1.57 mg/dL Estimated GFR () 41.1 BUN/Creatinine Ratio 11.0 Glucose Level 306 mg/dL Calcium Level 8.8 mg/dL Total Bilirubin 0.2 mg/dL Aspartate Amino Transf (AST/SGOT) 16 U/L Alanine Aminotransferase (ALT/SGPT) 30 U/L Alkaline Phosphatase 107 U/L Total Protein 6.6 g/dL Albumin 3.2 g/dL Globulin 3.4 Differential Total Cells Counted 100 #CELLS Segmented Neutrophils 96 % Lymphocytes 4 % Platelet Estimate ADEQUATE Platelet Morphology NORMAL Blood Morphology Comment NORMAL MORPHOLOGY Current Medications Medications (Trade) Dose Ordered Sig/Krystle PRN Reason Start Time Stop Time Status Last Admin Acetaminophen/ Codeine Phosphate (Tylenol #4) 1 tablet Q6 10/21/19 18:00 11/20/19 17:59 10/22/19 06:02 Albuterol/ Ipratropium (Duo 0.5-3(2.5) Mg/3 ml) 3 ml RTQ4 10/21/19 17:00 11/20/19 16:59 10/22/19 04:03 Alprazolam (Xanax) 0.5 mg Q8 10/21/19 22:00 11/20/19 21:59 10/22/19 06:01 Aspirin (Aspirin Ec) 81 mg DAILY 10/22/19 09:00 11/21/19 08:59 Atorvastatin Calcium (Lipitor) 5 mg HS 10/21/19 21:00 11/20/19 20:59 10/21/19 20:35 Citalopram Hydrobromide (CeleXA) 10 mg DAILY 10/22/19 09:00 11/21/19 08:59 Enoxaparin Sodium (Lovenox) 67 mg DAILY 10/22/19 09:00 11/20/19 20:59 Fluticasone Propionate (Flonase) 2 sprays BID 10/21/19 21:00 11/20/19 20:59 10/21/19 21:30 Levothyroxine Sodium (Synthroid) 88 mcg ACB 10/22/19 06:30 11/21/19 06:29 10/22/19 06:01 Meropenem 500 mg/ Sodium Chloride 100 ml @ 200 mls/hr Q8H 10/21/19 15:00 11/20/19 14:59 10/22/19 06:01 Methylprednisolone Sodium Succinate (Solu-Medrol) 40 mg Q8HR 10/21/19 22:00 11/20/19 21:59 10/22/19 06:01 Montelukast Sodium (Singulair) 10 mg HS 10/21/19 21:00 11/20/19 20:59 10/21/19 20:35 Pantoprazole Sodium (Protonix Iv) 40 mg DAILY 10/22/19 09:00 11/21/19 08:59 Pantoprazole Sodium (Protonix) 40 mg DAILY 10/22/19 09:00 11/21/19 08:59 Sodium Chloride 1,000 ml @ 100 mls/hr Q10H 10/22/19 06:30 11/21/19 06:29 Tizanidine HCl (Zanaflex) 2 mg Q8HR 10/21/19 22:00 11/20/19 21:59 10/22/19 06:01 Trazodone HCl (Desyrel) 50 mg HS 10/21/19 21:00 11/20/19 20:59 10/21/19 20:34 Sepsis Infection Criteria Pres: None LEVEL 1 SEPSIS INFECTION CRITE: ABX Therapy, Cough/Shortness of Breath LEVEL 2-SIRS (LIST ALL THAT AP: RR>20/min, HR>90/min, WBC>[id number] Cardiovascular Evidence: Not Assessed or None Hematologic Evidence: None/Not assessed Hepatic Evidence: Elevated AST(SGOT)>72, Elevated ALT(SGPT)>90 Metabolic Evidence: None/Not assessed Neurological Evidence: None/Not assessed Respiratory Evidence: Need for O2 to keep>90%, O2 SAT<90room air Renal Evidence: None/Not assessed O2 Sat by Pulse Oximetry: 93 Oxygen Flow Rate: 3.00 Assessment/Plan Assessment/Plan Assessment/Plan 1. Chest pain: Trop negative x 3. EKG negative for acute ischemic changes. C ardiology consulted. Likely Cardiac stress when patient more stable. CTA to rule out PE inconclusive, pending VQ scan. Renally dose Lovenox until PE ruled out. 2. Community Acquired Pneumonia/COPD exacerbation/Sepsis: patient pending blood cx. Patient symptoms have worsened and she meets Sepsis criteria. Aggressive volume resuscitation ordered. Cont IV abx. 3. Metabolic Acidosis: likely 2/2 sepsis/infection. Pending Lactic acid. Cont IVF, IV abx and repeat metabolic panel this afternoon. 4. Hypothyroidism; cont Synthroid 5. HLD: cont Statin, Lipid panel reviewed. 6. Hx of Atrophic Kidney: hold Nephrotoxic agents. Will avoid further contrast. 7. PPx: Lovenox, PPI 8. Depression/Anxiety: cont Xanax, SSRI 9. RANDA: 2/2 ATN/Sepsis, cont IVF and recheck metabolic panel this afternoon. 10. Hyperkalemia: lab error, STAT repeat showed K of 5. ANH SCHMIDT MD Oct 22, 2019 08:27
[2019-10-22] MEDS ORDERED: NS 1000ML 1,000 ML IV ONE ×2 (08:30)
[2019-10-22] MEDS ORDERED: PROTONIX IV IV SCH (09:00)
[2019-10-22] MEDS: FLONASE NS SCH ×2 (09:00→21:15)
[2019-10-22] MEDS ORDERED: LOVENOX SQ SCH (09:00)
[2019-10-22] MEDS ORDERED: ASPIRIN ONE (10:13)
[2019-10-22] MEDS: LACTATED RINGERS 1,000 ML IV SCH ×2 (10:30→21:15)
[2019-10-22] MEDS: PROTONIX PO SCH (10:42)
[2019-10-22] MEDS: CeleXA PO SCH (10:43)
[2019-10-22] MEDS: ASPIRIN EC PO SCH (10:43)
--- NOTE | 2019-10-22 11:41 | PCM.EKG ---
[facility] Test Date: 2019-10-22 Test Time: 11:38:27 Pat Name: EDIE MACEDO Department: Room: 312 A Gender: F Manager Money: TB : [phone] Requested By: ANH SCHMIDT Order Number: [id number] Reading MD: Measurements Intervals [place] Rate: 95 P: 86 CO: 123 QRS: 84 QRSD: 79 T: 71 QT: 371 QTc: 467 Interpretive Statements Sinus rhythm Compared to ECG 10/09/2019 22:18:15 No significant changes Please click the below link to view image of tracing.
--- NOTE | 2019-10-22 11:45 | DIREP ---
PROCEDURE:NM LUNG SCAN PERFUSION&VENTIL/SOLIS COMPARISON:[facility], CT, CTA CHEST, 10/21/2019, 12:22 PM. [facility], CR, XRAY CHEST SINGLE VW, 10/21/2019, 10:31 AM. INDICATIONS:chest pain TECHNIQUE:After obtaining the patient's consent, a ventilation/perfusion scan was obtained using17 mCi Xenon-133 aerosol inhaled and 5.8 mCi Tc-99m MAA intravenous. FINDINGS: VENTILATION:Normal symmetric ventilatory activity. No ventilatory retention on washout images. PERFUSION:Normal symmetric perfusion. No segmental or pleural-based defect. V/Q MISMATCH:None significant. CONCLUSION: Low probability V/Q scan for pulmonary embolus. Dictated by: Govind Snider MD on 10/22/2019 at 11:42 AM
--- NOTE | 2019-10-22 11:57 | NUR ---
DISCHARGE PLAN CM AT BEDSIDE TO VISIT WITH PATIENT IS SHE IS OFF THE FLOOR FOR IN RADIOLOGY.
--- NOTE | 2019-10-22 12:08 | DIREP ---
PROCEDURE:CHEST 1 VIEW COMPARISON:[facility], CR, XRAY CHEST SINGLE VW, 10/21/2019, 10:31 AM. INDICATIONS:shortness of breath FINDINGS: LUNGS/PLEURA:No significant pulmonary parenchymal abnormalities or pleural effusion. CARDIAC:Normal cardiac silhouette and normal pulmonary vascularity. MEDIASTINUM:Normal BONES:Normal OTHER:No additional findings. CONCLUSION:No acute cardiopulmonary process. Dictated by: Emily Harmon MD on 10/22/2019 at 12:06 PM
--- NOTE | 2019-10-22 12:44 | PRM.PN ---
Subjective Subjective Date: Oct 22, 2019 Time: 12:37 Subjective patient is currently septic with metabolic acidosis. She denies any chest pain. Review of 2-D echo shows left ventricular ejection fraction is 60-65%. Troponins negative VTE VTE Risk Total Score: 3 VTE Risk Score VTE Risk: Score 0-1 = Low Risk (Aggressive mobilization; early ambulation; no VTE prophylaxis required) Score 2: Moderate Risk (Intermittent/Pneumatic Compression Device OR Lovenox/Heparin/Coumadin) Score 3-4: High Risk (Intermittent/Pneumatic Compression Device AND Lovenox/Heparin/Coumadin) Score > or =5: Highest Risk (Intermittent/Pneumatic Compression Device AND Lovenox/Heparin/Coumadin) Antico:Hep/LMWH/Coum/Xarelto: No Mechanical device ordered: No Review of Systems Eyes: No: Pain, Vision change, Conjunctivae inflammation, Eyelid inflammation, Other, Redness Respiratory: No: Cough, Dry, Shortness of breath, SOB with excertion, Wheezing, Hemoptysis, Pleuritic Pain, Sputum, Wheezing, Other Cardiovascular: No: Chest Pain, Palpitations, Orthopnea, Paroxysmal Noc. Dyspnea, Edema, Lt Headedness, Other Gastrointestinal: No: Nausea, Vomiting, Abdominal Pain, Diarrhea, Constipation, Melena, Hematochezia, Other Musculoskeletal: No: other, neck pain, shoulder pain, arm pain, back pain, hand pain, leg pain, foot pain Neurological: No: Weakness, Numbness, Incoordination, Change in speech, Confusion, Seizures, Other Allergies: Coded Allergies: celecoxib (Unverified Allergy, Severe, SEIZURES, 02/22/15) cephalexin (Unverified Allergy, Mild, N/V, 02/22/15) Scheduled Acetaminophen With Codeine (Tylenol With Codeine #4 Tablet), 1 EACH PO Q6, (Reported) Albuterol Sulfate (Ventolin Hfa), 18 GM IH Q6HR, (Reported) Alprazolam (Alprazolam), 0.5 MG PO Q8, (Reported) Beclomethasone Dipropionate (Beclomethasone Dipropionate), 80 MCG INH BID, (Reported) Citalopram Hydrobromide (Citalopram Hbr), 1 TAB PO DAILY, (Reported) Fluticasone Propionate (Fluticasone Propionate), 2 SPR NA BID, (Reported) Levothyroxine Sodium (Levothyroxine Sodium), 1 TAB PO DAILY, (Reported) Lovastatin (Lovastatin), 20 MG PO HS, (Reported) Megestrol Acetate (Megestrol Acetate), 120 MG PO DAILY24, (Reported) Montelukast Sodium (Montelukast Sodium), 1 TAB PO HS, (Reported) Nicotine (Nicotine Patch), 1 EACH TD DAILY24, (Reported) Omeprazole Magnesium (Prilosec Otc), 20 MG PO DAILY, (Reported) Tizanidine Hcl (Tizanidine Hcl), 2 MG PO Q8HR, (Reported) Trazodone Hcl (Trazodone Hcl), 50 TAB PO HS, (Reported) Discontinued Medications Levothyroxine Sodium (Levothyroxine Sodium), 1 TAB PO DAILY, (Reported) Discontinued Reason: Prescription changed Melatonin (Melatonin), 10 MG PO HS PRN for INSOMNIA, (Reported) Discontinued Reason: No Longer Taking Prednisolone Sod Phosphate (Prednisolone Sodium Phosphate), 1 DROP LEFT EYE TID, (Reported) Discontinued Reason: No Longer Taking Tizanidine Hcl (Tizanidine Hcl), 1 TAB PO BID, (Reported) Discontinued Reason: Prescription changed Objective Vitals and I/O Vital Sign - Last 24 Hours 10/21/19 10/21/19 10/21/19 10/21/19 10:21 10:21 10:21 11:16 Temp 97.9 97.9 97.9 Pulse 78 78 78 Resp 20 16 20 B/P (MAP) 120/65 (83) 130/74 (92) Pulse Ox 99 99 O2 Delivery Room Air 10/21/19 10/21/19 10/21/19 10/21/19 11:21 11:45 12:29 12:30 Pulse 80 Resp 29 B/P (MAP) 139/72 (94) 138/73 (94) 139/74 (95) Pulse Ox 99 10/21/19 10/21/19 10/21/19 10/21/19 12:45 13:00 14:35 15:20 Pulse 78 Resp 20 18 B/P (MAP) 133/71 (91) 143/82 (102) 120/65 (83) Pulse Ox 99 99 O2 Delivery Room Air 10/21/19 10/21/19 10/21/19 10/21/19 15:27 16:17 16:17 16:41 Temp 98.2 Pulse 78 80 89 77 Resp 18 20 20 20 B/P (MAP) 136/78 (97) Pulse Ox 99 99 98 100 O2 Delivery Nasal Cannula Nasal Canula O2 Flow Rate 2.00 3.00 10/21/19 10/21/19 10/21/19 10/21/19 16:45 20:30 20:38 21:42 Pulse 77 80 Resp 20 22 Pulse Ox 100 97 O2 Delivery Nasal Cannula Nasal Cannula O2 Flow Rate 3.00 3.00 10/21/19 10/21/19 10/22/19 10/22/19 22:18 22:32 00:08 00:11 Temp 98.1 Pulse 101 101 83 83 Resp 22 22 18 18 B/P (MAP) 141/97 (112) Pulse Ox 96 96 97 97 O2 Delivery Nasal Canula Nasal Cannula O2 Flow Rate 3.00 2.50 10/22/19 10/22/19 10/22/19 00:22 04:04 04:07 Temp 98.3 Pulse 113 95 95 Resp 20 15 15 B/P (MAP) 101/61 (74) Pulse Ox 94 93 93 O2 Delivery Nasal Canula O2 Flow Rate 3.00 General: Alert, Oriented X3, Cooperative, No acute distress HEENT: Atraumatic, PERRLA, EOMI, Mucous membr. moist/pink Neck: Supple, No JVD Lungs: Other (diffuse wheezing, decreased aeration but improved since yesterday) Heart: Normal S1, Normal S2, No murmurs Abdomen: Normal bowel sounds, Soft, No tenderness Extremities: No edema, Normal pulses, No tenderness/swelling Skin: No rashes, No breakdown, No significant lesion Neuro: Normal speech, Strength at 5/5 X4 ext, Normal tone, Sensation intact, Cranial nerves 3-12 NL Psych/Mental Status: Mental status NL, Mood NL All Results(Lab/Rad) Laboratory Tests Test 10/21/19 10:45 10/21/19 12:57 10/21/19 15:12 10/21/19 22:50 White Blood Count 17.2 10^3/uL Red Blood Count 3.76 10^6/uL Hemoglobin 11.4 g/dL Hematocrit 34.0 % Mean Corpuscular Volume 90.4 fL Mean Corpuscular Hemoglobin 30.3 pg Mean Corpuscular Hemoglobin Concent 33.5 g/dL Red Cell Distribution Width 14.3 % Platelet Count 453 10^3/uL Mean Platelet Volume 9.1 fL Neutrophils (%) (Auto) 74.4 % Lymphocytes (%) (Auto) 14.3 % Monocytes (%) (Auto) 9.5 % Neutrophils # (Auto) 12.8 10^3/uL Lymphocytes # (Auto) 2.5 10^3/uL Monocytes # (Auto) 1.6 10^3/uL Absolute Immature Granulocyte (auto 0.07 10^3 u/L Immature Granulocytes % 0.40 % Eosinophils % 1.2 % Basophils % 0.2 % Basophils # 0.0 10^3/uL Eosinophil Count 0.2 10^3/uL Prothrombin Time 10.0 SEC Prothrombin Time INR (Non-Therap) 1.0 Activated Partial Thromboplast Time 23.3 SEC D-Dimer 0.99 mg/L Sodium Level 133 mmol/L Potassium Level 3.9 mmol/L Chloride Level 104.0 mmol/L Carbon Dioxide Level 16.8 mmol/L Anion Gap 16.1 Blood Urea Nitrogen 22 mg/dL Creatinine 1.17 mg/dL Estimated GFR () 57.7 BUN/Creatinine Ratio 18.0 Glucose Level 116 mg/dL Calcium Level 9.1 mg/dL Total Bilirubin 0.2 mg/dL Aspartate Amino Transf (AST/SGOT) 17 U/L Alanine Aminotransferase (ALT/SGPT) 26 U/L Alkaline Phosphatase 119 U/L Total Creatine Kinase 55 U/L Creatine Kinase MB < 0.5 ng/mL Troponin I < 0.02 ng/mL < 0.02 ng/mL < 0.02 ng/mL Pro-B-Type Natriuretic Peptide 139 pg/mL Total Protein 6.6 g/dL Albumin 3.6 g/dL Globulin 3.0 Helicobacter pylori Screen NEGATIVE Urine Collection Type UNKNOWN Urine Color YELLOW Urine Appearance CLEAR Urine Bilirubin NEGATIVE MG/DL Urine Ketones NEGATIVE Urine Specific [place] 1.010 Urine pH 6.5 Urine Protein NEGATIVE Urine Urobilinogen NORMAL Urine Nitrate NEGATIVE Urine Leukocyte Esterase NEGATIVE Urine Blood NEGATIVE Urine Glucose NORMAL Hemoglobin A1c 5.6 % Triglycerides Level 63 mg/dL Cholesterol Level 143 mg/dL LDL Cholesterol, Calculated 91.4 VLDL Cholesterol 12.6 HDL Cholesterol 39 mg/dL Cholesterol Ratio (LDL/HDL) Test 10/22/19 04:52 10/22/19 05:10 10/22/19 06:33 White Blood Count 16.1 10^3/uL Red Blood Count 3.52 10^6/uL Hemoglobin 10.6 g/dL Hematocrit 32.3 % Mean Corpuscular Volume 91.8 fL Mean Corpuscular Hemoglobin 30.1 pg Mean Corpuscular Hemoglobin Concent 32.8 g/dL Red Cell Distribution Width 14.3 % Platelet Count 384 10^3/uL Mean Platelet Volume 9.6 fL Neutrophils (%) (Auto) 93.9 % Lymphocytes (%) (Auto) 4.5 % Monocytes (%) (Auto) 1.1 % Neutrophils # (Auto) 15.1 10^3/uL Lymphocytes # (Auto) 0.7 10^3/uL Monocytes # (Auto) 0.2 10^3/uL Absolute Immature Granulocyte (auto 0.07 10^3 u/L Immature Granulocytes % 0.40 % Eosinophils % 0.0 % Basophils % 0.1 % Basophils # 0.0 10^3/uL Eosinophil Count 0.0 10^3/uL Sodium Level 133 mmol/L Potassium Level 5.9 mmol/L 5.0 mmol/L Chloride Level 105.0 mmol/L Carbon Dioxide Level 14.4 mmol/L Anion Gap 19.5 Blood Urea Nitrogen 18 mg/dL Creatinine 1.57 mg/dL Estimated GFR () 41.1 BUN/Creatinine Ratio 11.0 Glucose Level 306 mg/dL Calcium Level 8.8 mg/dL Total Bilirubin 0.2 mg/dL Aspartate Amino Transf (AST/SGOT) 16 U/L Alanine Aminotransferase (ALT/SGPT) 30 U/L Alkaline Phosphatase 107 U/L Total Protein 6.6 g/dL Albumin 3.2 g/dL Globulin 3.4 Differential Total Cells Counted 100 #CELLS Segmented Neutrophils 96 % Lymphocytes 4 % Platelet Estimate ADEQUATE Platelet Morphology NORMAL Blood Morphology Comment NORMAL MORPHOLOGY Current Medications Medications (Trade) Dose Ordered Sig/Krystle Route PRN Reason Start Time Stop Time Status Last Admin Dose Admin Ketorolac Tromethamine (Toradol) 30 mg STAT STAT IV 10/21/19 10:32 10/21/19 14:44 DC 10/21/19 10:57 Sodium Chloride 1,000 ml @ 0 mls/hr Q0M STAT IV 10/21/19 10:32 10/21/19 14:43 DC 10/21/19 10:57 Ketorolac Tromethamine (Toradol) 30 mg STK-MED ONCE .ROUTE 10/21/19 10:44 10/21/19 10:46 DC Enoxaparin Sodium (Lovenox) 70 mg OT SQ 10/21/19 13:30 10/22/19 08:17 DC 10/21/19 14:24 Aspirin (Aspirin Ec) 81 mg DAILY PO 10/22/19 09:00 11/21/19 08:59 Enoxaparin Sodium (Lovenox) 70 mg BID SQ 10/21/19 21:00 10/22/19 08:10 DC 10/21/19 20:34 Enoxaparin Sodium (Lovenox) 80 mg STK-MED ONCE SQ 10/21/19 14:01 10/21/19 14:02 DC Pantoprazole Sodium (Protonix) 40 mg DAILY PO 10/22/19 09:00 11/21/19 08:59 Potassium Chloride/Sodium Chloride 1,000 ml @ 100 mls/hr Q10H IV 10/21/19 15:00 10/22/19 06:27 DC 10/22/19 01:07 Albuterol/ Ipratropium (Duo 0.5-3(2.5) Mg/3 ml) 3 ml RTQ4 IH 10/21/19 17:00 11/20/19 16:59 10/22/19 04:03 Methylprednisolone Sodium Succinate (Solu-Medrol) 40 mg Q8HR IV 10/21/19 22:00 11/20/19 21:59 10/22/19 06:01 Methylprednisolone Sodium Succinate (Solu-Medrol) 80 mg STAT STAT IV 10/21/19 14:45 10/21/19 15:01 DC 10/21/19 14:45 Pantoprazole Sodium (Protonix Iv) 40 mg DAILY IV 10/22/19 09:00 11/21/19 08:59 Meropenem 500 mg/ Sodium Chloride 100 ml @ 200 mls/hr Q8H IV 10/21/19 15:00 11/20/19 14:59 10/22/19 06:01 Acetaminophen/ Codeine Phosphate (Tylenol #4) 1 tablet Q6 PO 10/21/19 18:00 11/20/19 17:59 10/22/19 06:02 Alprazolam (Xanax) 0.5 mg Q8 PO 10/21/19 22:00 11/20/19 21:59 10/22/19 06:01 Citalopram Hydrobromide (CeleXA) 10 mg DAILY PO 10/22/19 09:00 11/21/19 08:59 Fluticasone Propionate (Flonase) 2 sprays BID NS 10/21/19 21:00 11/20/19 20:59 10/21/19 21:30 Levothyroxine Sodium (Synthroid) 88 mcg ACB PO 10/22/19 06:30 11/21/19 06:29 10/22/19 06:01 Atorvastatin Calcium (Lipitor) 5 mg HS PO 10/21/19 21:00 11/20/19 20:59 10/21/19 20:35 Montelukast Sodium (Singulair) 10 mg HS PO 10/21/19 21:00 11/20/19 20:59 10/21/19 20:35 Trazodone HCl (Desyrel) 50 mg HS PO 10/21/19 21:00 11/20/19 20:59 10/21/19 20:34 Tizanidine HCl (Zanaflex) 2 mg Q8HR PO 10/21/19 22:00 11/20/19 21:59 10/22/19 06:01 Sodium Chloride 100 ml @ ud STK-MED ONCE IV 10/21/19 14:57 10/21/19 14:59 DC Albuterol/ Ipratropium (Duo 0.5-3(2.5) Mg/3 ml) 3 ml STK-MED ONCE IH 10/21/19 15:32 10/21/19 15:34 DC Lanolin (Lanolin Hydrous) 28 gm STK-MED ONCE TP 10/21/19 21:14 10/21/19 21:16 DC Sodium Chloride 1,000 ml @ 100 mls/hr Q10H IV 10/22/19 06:30 11/21/19 06:29 Sodium Chloride 1,000 ml @ 0 mls/hr Q0M ONCE IV 10/22/19 08:30 10/22/19 08:31 Enoxaparin Sodium (Lovenox) 67 mg DAILY SQ 10/22/19 09:00 11/20/19 20:59 Sodium Chloride 1,000 ml @ 0 mls/hr Q0M ONCE IV 10/22/19 08:30 10/22/19 08:31 UNV Assessment/Plan Assessment/Plan Assessment/Plan acute COPD exacerbation Sepsis Metabolic acidosis Noncardiac chest pain LVEF 60-65% on 2-D echo Troponins negative Plan patient's chest pain appears to be noncardiac in origin. troponins are negative and there is no evidence of ischemia on ECG. She is currently septic with metabolic acidosis. Echo shows normal left ventricular ejection fraction. At this time I doubt ACS. Given the current septic picture will hold off on stress test . We will complete further cardiac ischemic workup as an outpatient after patient has fully recovered from sepsis. no further cardiac workup is necessary at this time. I will sign off. Please follow-up with me in the office in 2 weeks upon discharge. ASHLEY MUNOZ DO Oct 22, 2019 12:44
--- NOTE | 2019-10-22 12:47 | NUR ---
DRESSING CHANGE MIDLINE DRESSING CHANGED BY MANI BLANC RN.
[2019-10-22 12:57] VITALS: BP 112/48
[2019-10-22 15:42] LABS: CALCIUM 8.6 mg/dL (8.4-10.5); CARBON DIOXIDE 14.5 mmol/L (20.0-32)
[2019-10-22] MEDS: NICOTINE 21MG PATCH TD SCH (16:32)
--- NOTE | 2019-10-22 16:56 | NUR ---
PT OFF UNIT PT REQUEST TO GO OFF UNIT WITH DAUGHTER. EDUCATED PT ON HEALTH STATUS AND NEED FOR OXYGEN. PT VERBALIZED UNDERSTANDING. DR. SCHMIDT NOTIFIED OF PT REQUEST, STATES PT WILL GO DOWN AGAINST MEDICAL ADVICE. PT INSISTS ON GOING DOWN WITHOUT OXYGEN. PT OFF UNIT VIA WHEELCHAIR WITH DAUGHTER. SOB NOTED. CARE OF PT RELINQUISHED UNTIL RETURNED TO UNIT.
[2019-10-22 17:28] VITALS: BP 116/61
[2019-10-22 20:31] VITALS: BP 113/60
[2019-10-22] MEDS: SINGULAIR PO SCH (21:15)
[2019-10-22] MEDS: DESYREL PO SCH (21:16)
[2019-10-22] MEDS: LIPITOR PO SCH (21:16)
[2019-10-22] MEDS ORDERED: VIBRAMYCIN ONE (21:46)
[2019-10-22] MEDS: MUCINEX PO SCH (22:08)
[2019-10-23 00:34] VITALS: BP 129/66
[2019-10-23] MEDS: MEROPENEM 500 MG in NS 100ML 100 ML IV SCH ×4 (00:39→23:25)
[2019-10-23] MEDS: TYLENOL #4 PO SCH ×4 (00:40→17:51)
[2019-10-23] MEDS: DUO 0.5-3(2.5) MG/3 ML IH SCH ×4 (02:51→20:31)
[2019-10-23] MEDS: LACTATED RINGERS 1,000 ML IV SCH ×4 (04:25→22:53)
[2019-10-23 05:40] LABS: HEMOGLOBIN 10.2 g/dL (12.0-15.0); LYMPHOCYTES % 4.9 % (24.0-44.0); MEAN CELL HGB 29.9 pg (26-34); MEAN CELL HGB CONCENTRATION 32.5 g/dL (33-37); MEAN CORP VOLUME 92.1 fL (78-100); MEAN PLATELET VOLUME 9.6 fL (7.8-11.0); MONOCYTES # 0.7 10^3/uL (0.3-0.8); MONOCYTES % 3.3 % (5.0-12.0); NEUTROPHIL # 18.3 10^3/uL (1.8-7.7); NEUTROPHILS % 91.3 % (41.0-85.0); RED CELL DISTRIBUTION WIDTH 14.6 % (11.5-14.5)
[2019-10-23] MEDS: SYNTHROID PO SCH (05:57)
[2019-10-23] MEDS: SOLU-MEDROL IV SCH ×3 (05:57→21:55)
[2019-10-23] MEDS: ZANAFLEX PO SCH ×3 (05:57→21:55)
[2019-10-23] MEDS: XANAX PO SCH ×3 (05:57→21:56)
[2019-10-23 06:07] LABS: CALCIUM 8.9 mg/dL (8.4-10.5); CARBON DIOXIDE 16.5 mmol/L (20.0-32)
--- NOTE | 2019-10-23 08:14 | PRM.PN ---
Subjective Subjective Date: Oct 23, 2019 Time: 08:00 Subjective Patient feeling better. Lactic acid is decreasing. Patient s/p midline placement. She is pending CXR and repeat Lactic this AM. Labs reviewed. Patient History: Asthma G8 SISTER, , Age:56 19 CHILD Chronic obstructive pulmonary disease G8 SISTER, , Age:54 G8 SISTER, , Age:54 Congestive heart failure 32 MOTHER, , Age:54 G8 SISTER, , Age:54 G8 BROTHER, , Age:52 FH: alcoholism G8 SISTER, , Age:54 G8 BROTHER, , Age:52 FH: blindness 33 FATHER, , Age:92 FHx: leukemia G8 SISTER, , Age:54 Hypertension 32 MOTHER, , Age:54 Unknown 32 MOTHER, , Age:54 No Family History of: Alzheimer's disease Cerebrovascular disorder Diabetes insipidus Diabetes mellitus Parkinson's disease VTE VTE Risk Total Score: 3 VTE Risk Score VTE Risk: Score 0-1 = Low Risk (Aggressive mobilization; early ambulation; no VTE prophylaxis required) Score 2: Moderate Risk (Intermittent/Pneumatic Compression Device OR Lovenox/Heparin/Coumadin) Score 3-4: High Risk (Intermittent/Pneumatic Compression Device AND Lovenox/Heparin/Coumadin) Score > or =5: Highest Risk (Intermittent/Pneumatic Compression Device AND Lovenox/Heparin/Coumadin) Antico:Hep/LMWH/Coum/Xarelto: No Mechanical device ordered: No Review of Systems Allergies: Coded Allergies: celecoxib (Unverified Allergy, Severe, SEIZURES, 02/22/15) cephalexin (Unverified Allergy, Mild, N/V, 02/22/15) Scheduled Acetaminophen With Codeine (Tylenol With Codeine #4 Tablet), 1 EACH PO Q6, (Reported) Albuterol Sulfate (Ventolin Hfa), 18 GM IH Q6HR, (Reported) Alprazolam (Alprazolam), 0.5 MG PO Q8, (Reported) Beclomethasone Dipropionate (Beclomethasone Dipropionate), 80 MCG INH BID, (Reported) Citalopram Hydrobromide (Citalopram Hbr), 1 TAB PO DAILY, (Reported) Fluticasone Propionate (Fluticasone Propionate), 2 SPR NA BID, (Reported) Levothyroxine Sodium (Levothyroxine Sodium), 1 TAB PO DAILY, (Reported) Lovastatin (Lovastatin), 20 MG PO HS, (Reported) Megestrol Acetate (Megestrol Acetate), 120 MG PO DAILY24, (Reported) Montelukast Sodium (Montelukast Sodium), 1 TAB PO HS, (Reported) Nicotine (Nicotine Patch), 1 EACH TD DAILY24, (Reported) Omeprazole Magnesium (Prilosec Otc), 20 MG PO DAILY, (Reported) Tizanidine Hcl (Tizanidine Hcl), 2 MG PO Q8HR, (Reported) Trazodone Hcl (Trazodone Hcl), 50 TAB PO HS, (Reported) Discontinued Medications Levothyroxine Sodium (Levothyroxine Sodium), 1 TAB PO DAILY, (Reported) Discontinued Reason: Prescription changed Melatonin (Melatonin), 10 MG PO HS PRN for INSOMNIA, (Reported) Discontinued Reason: No Longer Taking Prednisolone Sod Phosphate (Prednisolone Sodium Phosphate), 1 DROP LEFT EYE TID, (Reported) Discontinued Reason: No Longer Taking Tizanidine Hcl (Tizanidine Hcl), 1 TAB PO BID, (Reported) Discontinued Reason: Prescription changed Objective Vitals and I/O Vital Sign - Last 24 Hours 10/21/19 10/21/19 10/21/19 10/21/19 10:21 10:21 10:21 11:16 Temp 97.9 97.9 97.9 Pulse 78 78 78 Resp 20 16 20 B/P (MAP) 120/65 (83) 130/74 (92) Pulse Ox 99 99 O2 Delivery Room Air 10/21/19 10/21/19 10/21/19 10/21/19 11:21 11:45 12:29 12:30 Pulse 80 Resp 29 B/P (MAP) 139/72 (94) 138/73 (94) 139/74 (95) Pulse Ox 99 10/21/19 10/21/19 10/21/19 10/21/19 12:45 13:00 14:35 15:20 Pulse 78 Resp 20 18 B/P (MAP) 133/71 (91) 143/82 (102) 120/65 (83) Pulse Ox 99 99 O2 Delivery Room Air 10/21/19 10/21/19 10/21/19 10/21/19 15:27 16:17 16:17 16:41 Temp 98.2 Pulse 78 80 89 77 Resp 18 20 20 20 B/P (MAP) 136/78 (97) Pulse Ox 99 99 98 100 O2 Delivery Nasal Cannula Nasal Canula O2 Flow Rate 2.00 3.00 10/21/19 10/21/19 10/21/19 10/21/19 16:45 20:30 20:38 21:42 Pulse 77 80 Resp 20 22 Pulse Ox 100 97 O2 Delivery Nasal Cannula Nasal Cannula O2 Flow Rate 3.00 3.00 10/21/19 10/21/19 10/22/19 10/22/19 22:18 22:32 00:08 00:11 Temp 98.1 Pulse 101 101 83 83 Resp 22 22 18 18 B/P (MAP) 141/97 (112) Pulse Ox 96 96 97 97 O2 Delivery Nasal Canula Nasal Cannula O2 Flow Rate 3.00 2.50 10/22/19 10/22/19 10/22/19 00:22 04:04 04:07 Temp 98.3 Pulse 113 95 95 Resp 20 15 15 B/P (MAP) 101/61 (74) Pulse Ox 94 93 93 O2 Delivery Nasal Canula O2 Flow Rate 3.00 General: Alert, Oriented X3, Cooperative, No acute distress HEENT: Atraumatic, PERRLA, EOMI, Mucous membr. moist/pink Neck: Supple, No JVD Lungs: Other (wheezing very mild, improved aeration) Heart: Normal S1, Normal S2, No murmurs Abdomen: Normal bowel sounds, Soft, No tenderness Extremities: No edema, Normal pulses, No tenderness/swelling Skin: No rashes, No breakdown, No significant lesion Neuro: Normal speech, Strength at 5/5 X4 ext, Normal tone, Sensation intact, Cranial nerves 3-12 NL Psych/Mental Status: Mental status NL, Mood NL All Results(Lab/Rad) Laboratory Tests Test 10/21/19 10:45 10/21/19 12:57 10/21/19 15:12 10/21/19 22:50 White Blood Count 17.2 10^3/uL Red Blood Count 3.76 10^6/uL Hemoglobin 11.4 g/dL Hematocrit 34.0 % Mean Corpuscular Volume 90.4 fL Mean Corpuscular Hemoglobin 30.3 pg Mean Corpuscular Hemoglobin Concent 33.5 g/dL Red Cell Distribution Width 14.3 % Platelet Count 453 10^3/uL Mean Platelet Volume 9.1 fL Neutrophils (%) (Auto) 74.4 % Lymphocytes (%) (Auto) 14.3 % Monocytes (%) (Auto) 9.5 % Neutrophils # (Auto) 12.8 10^3/uL Lymphocytes # (Auto) 2.5 10^3/uL Monocytes # (Auto) 1.6 10^3/uL Absolute Immature Granulocyte (auto 0.07 10^3 u/L Immature Granulocytes % 0.40 % Eosinophils % 1.2 % Basophils % 0.2 % Basophils # 0.0 10^3/uL Eosinophil Count 0.2 10^3/uL Prothrombin Time 10.0 SEC Prothrombin Time INR (Non-Therap) 1.0 Activated Partial Thromboplast Time 23.3 SEC D-Dimer 0.99 mg/L Sodium Level 133 mmol/L Potassium Level 3.9 mmol/L Chloride Level 104.0 mmol/L Carbon Dioxide Level 16.8 mmol/L Anion Gap 16.1 Blood Urea Nitrogen 22 mg/dL Creatinine 1.17 mg/dL Estimated GFR () 57.7 BUN/Creatinine Ratio 18.0 Glucose Level 116 mg/dL Calcium Level 9.1 mg/dL Total Bilirubin 0.2 mg/dL Aspartate Amino Transf (AST/SGOT) 17 U/L Alanine Aminotransferase (ALT/SGPT) 26 U/L Alkaline Phosphatase 119 U/L Total Creatine Kinase 55 U/L Creatine Kinase MB < 0.5 ng/mL Troponin I < 0.02 ng/mL < 0.02 ng/mL < 0.02 ng/mL Pro-B-Type Natriuretic Peptide 139 pg/mL Total Protein 6.6 g/dL Albumin 3.6 g/dL Globulin 3.0 Helicobacter pylori Screen NEGATIVE Urine Collection Type UNKNOWN Urine Color YELLOW Urine Appearance CLEAR Urine Bilirubin NEGATIVE MG/DL Urine Ketones NEGATIVE Urine Specific Barnard 1.010 Urine pH 6.5 Urine Protein NEGATIVE Urine Urobilinogen NORMAL Urine Nitrate NEGATIVE Urine Leukocyte Esterase NEGATIVE Urine Blood NEGATIVE Urine Glucose NORMAL Hemoglobin A1c 5.6 % Triglycerides Level 63 mg/dL Cholesterol Level 143 mg/dL LDL Cholesterol, Calculated 91.4 VLDL Cholesterol 12.6 HDL Cholesterol 39 mg/dL Cholesterol Ratio (LDL/HDL) Test 10/22/19 04:52 10/22/19 05:10 10/22/19 06:33 White Blood Count 16.1 10^3/uL Red Blood Count 3.52 10^6/uL Hemoglobin 10.6 g/dL Hematocrit 32.3 % Mean Corpuscular Volume 91.8 fL Mean Corpuscular Hemoglobin 30.1 pg Mean Corpuscular Hemoglobin Concent 32.8 g/dL Red Cell Distribution Width 14.3 % Platelet Count 384 10^3/uL Mean Platelet Volume 9.6 fL Neutrophils (%) (Auto) 93.9 % Lymphocytes (%) (Auto) 4.5 % Monocytes (%) (Auto) 1.1 % Neutrophils # (Auto) 15.1 10^3/uL Lymphocytes # (Auto) 0.7 10^3/uL Monocytes # (Auto) 0.2 10^3/uL Absolute Immature Granulocyte (auto 0.07 10^3 u/L Immature Granulocytes % 0.40 % Eosinophils % 0.0 % Basophils % 0.1 % Basophils # 0.0 10^3/uL Eosinophil Count 0.0 10^3/uL Sodium Level 133 mmol/L Potassium Level 5.9 mmol/L 5.0 mmol/L Chloride Level 105.0 mmol/L Carbon Dioxide Level 14.4 mmol/L Anion Gap 19.5 Blood Urea Nitrogen 18 mg/dL Creatinine 1.57 mg/dL Estimated GFR () 41.1 BUN/Creatinine Ratio 11.0 Glucose Level 306 mg/dL Calcium Level 8.8 mg/dL Total Bilirubin 0.2 mg/dL Aspartate Amino Transf (AST/SGOT) 16 U/L Alanine Aminotransferase (ALT/SGPT) 30 U/L Alkaline Phosphatase 107 U/L Total Protein 6.6 g/dL Albumin 3.2 g/dL Globulin 3.4 Differential Total Cells Counted 100 #CELLS Segmented Neutrophils 96 % Lymphocytes 4 % Platelet Estimate ADEQUATE Platelet Morphology NORMAL Blood Morphology Comment NORMAL MORPHOLOGY Current Medications Medications (Trade) Dose Ordered Sig/Krystle Route PRN Reason Start Time Stop Time Status Last Admin Dose Admin Ketorolac Tromethamine (Toradol) 30 mg STAT STAT IV 10/21/19 10:32 10/21/19 14:44 DC 10/21/19 10:57 Sodium Chloride 1,000 ml @ 0 mls/hr Q0M STAT IV 10/21/19 10:32 10/21/19 14:43 DC 10/21/19 10:57 Ketorolac Tromethamine (Toradol) 30 mg STK-MED ONCE .ROUTE 10/21/19 10:44 10/21/19 10:46 DC Enoxaparin Sodium (Lovenox) 70 mg OT SQ 10/21/19 13:30 10/22/19 08:17 DC 10/21/19 14:24 Aspirin (Aspirin Ec) 81 mg DAILY PO 10/22/19 09:00 11/21/19 08:59 Enoxaparin Sodium (Lovenox) 70 mg BID SQ 10/21/19 21:00 10/22/19 08:10 DC 10/21/19 20:34 Enoxaparin Sodium (Lovenox) 80 mg STK-MED ONCE SQ 10/21/19 14:01 10/21/19 14:02 DC Pantoprazole Sodium (Protonix) 40 mg DAILY PO 10/22/19 09:00 11/21/19 08:59 Potassium Chloride/Sodium Chloride 1,000 ml @ 100 mls/hr Q10H IV 10/21/19 15:00 10/22/19 06:27 DC 10/22/19 01:07 Albuterol/ Ipratropium (Duo 0.5-3(2.5) Mg/3 ml) 3 ml RTQ4 IH 10/21/19 17:00 11/20/19 16:59 10/22/19 04:03 Methylprednisolone Sodium Succinate (Solu-Medrol) 40 mg Q8HR IV 10/21/19 22:00 11/20/19 21:59 10/22/19 06:01 Methylprednisolone Sodium Succinate (Solu-Medrol) 80 mg STAT STAT IV 10/21/19 14:45 10/21/19 15:01 DC 10/21/19 14:45 Pantoprazole Sodium (Protonix Iv) 40 mg DAILY IV 10/22/19 09:00 11/21/19 08:59 Meropenem 500 mg/ Sodium Chloride 100 ml @ 200 mls/hr Q8H IV 10/21/19 15:00 11/20/19 14:59 10/22/19 06:01 Acetaminophen/ Codeine Phosphate (Tylenol #4) 1 tablet Q6 PO 10/21/19 18:00 11/20/19 17:59 10/22/19 06:02 Alprazolam (Xanax) 0.5 mg Q8 PO 10/21/19 22:00 11/20/19 21:59 10/22/19 06:01 Citalopram Hydrobromide (CeleXA) 10 mg DAILY PO 10/22/19 09:00 11/21/19 08:59 Fluticasone Propionate (Flonase) 2 sprays BID NS 10/21/19 21:00 11/20/19 20:59 10/21/19 21:30 Levothyroxine Sodium (Synthroid) 88 mcg ACB PO 10/22/19 06:30 11/21/19 06:29 10/22/19 06:01 Atorvastatin Calcium (Lipitor) 5 mg HS PO 10/21/19 21:00 11/20/19 20:59 10/21/19 20:35 Montelukast Sodium (Singulair) 10 mg HS PO 10/21/19 21:00 11/20/19 20:59 10/21/19 20:35 Trazodone HCl (Desyrel) 50 mg HS PO 10/21/19 21:00 11/20/19 20:59 10/21/19 20:34 Tizanidine HCl (Zanaflex) 2 mg Q8HR PO 10/21/19 22:00 11/20/19 21:59 10/22/19 06:01 Sodium Chloride 100 ml @ ud STK-MED ONCE IV 10/21/19 14:57 10/21/19 14:59 DC Albuterol/ Ipratropium (Duo 0.5-3(2.5) Mg/3 ml) 3 ml STK-MED ONCE IH 10/21/19 15:32 10/21/19 15:34 DC Lanolin (Lanolin Hydrous) 28 gm STK-MED ONCE TP 10/21/19 21:14 10/21/19 21:16 DC Sodium Chloride 1,000 ml @ 100 mls/hr Q10H IV 10/22/19 06:30 11/21/19 06:29 Sodium Chloride 1,000 ml @ 0 mls/hr Q0M ONCE IV 10/22/19 08:30 10/22/19 08:31 Enoxaparin Sodium (Lovenox) 67 mg DAILY SQ 10/22/19 09:00 11/20/19 20:59 Sodium Chloride 1,000 ml @ 0 mls/hr Q0M ONCE IV 10/22/19 08:30 10/22/19 08:31 UNV Course Sepsis Screening Results: Posi: POSITIVE++ Sepsis Qualifier/Stage: SEVERE SEPSIS RISK Duration or Total Time Spent w: 3 hours Vitals & review Data Vital Sign - Last 24 Hours 10/21/19 10/21/19 10/21/19 10/21/19 10:21 10:21 10:21 11:16 Temp 97.9 97.9 97.9 Pulse 78 78 78 Resp 20 16 20 B/P (MAP) 120/65 (83) 130/74 (92) Pulse Ox 99 99 O2 Delivery Room Air 10/21/19 10/21/19 10/21/19 10/21/19 11:21 11:45 12:29 12:30 Pulse 80 Resp 29 B/P (MAP) 139/72 (94) 138/73 (94) 139/74 (95) Pulse Ox 99 10/21/19 10/21/19 10/21/19 10/21/19 12:45 13:00 14:35 15:20 Pulse 78 Resp 20 18 B/P (MAP) 133/71 (91) 143/82 (102) 120/65 (83) Pulse Ox 99 99 O2 Delivery Room Air 10/21/19 10/21/19 10/21/19 10/21/19 15:27 16:17 16:17 16:41 Temp 98.2 Pulse 78 80 89 77 Resp 18 20 20 20 B/P (MAP) 136/78 (97) Pulse Ox 99 99 98 100 O2 Delivery Nasal Cannula Nasal Canula O2 Flow Rate 2.00 3.00 10/21/19 10/21/19 10/21/19 10/21/19 16:45 20:30 20:38 21:42 Pulse 77 80 Resp 20 22 Pulse Ox 100 97 O2 Delivery Nasal Cannula Nasal Cannula O2 Flow Rate 3.00 3.00 10/21/19 10/21/19 10/22/19 10/22/19 22:18 22:32 00:08 00:11 Temp 98.1 Pulse 101 101 83 83 Resp 22 22 18 18 B/P (MAP) 141/97 (112) Pulse Ox 96 96 97 97 O2 Delivery Nasal Canula Nasal Cannula O2 Flow Rate 3.00 2.50 10/22/19 10/22/19 10/22/19 00:22 04:04 04:07 Temp 98.3 Pulse 113 95 95 Resp 20 15 15 B/P (MAP) 101/61 (74) Pulse Ox 94 93 93 O2 Delivery Nasal Canula O2 Flow Rate 3.00 Laboratory Tests Test 10/21/19 10:45 10/21/19 12:57 10/21/19 15:12 10/21/19 22:50 White Blood Count 17.2 10^3/uL Red Blood Count 3.76 10^6/uL Hemoglobin 11.4 g/dL Hematocrit 34.0 % Mean Corpuscular Volume 90.4 fL Mean Corpuscular Hemoglobin 30.3 pg Mean Corpuscular Hemoglobin Concent 33.5 g/dL Red Cell Distribution Width 14.3 % Platelet Count 453 10^3/uL Mean Platelet Volume 9.1 fL Neutrophils (%) (Auto) 74.4 % Lymphocytes (%) (Auto) 14.3 % Monocytes (%) (Auto) 9.5 % Neutrophils # (Auto) 12.8 10^3/uL Lymphocytes # (Auto) 2.5 10^3/uL Monocytes # (Auto) 1.6 10^3/uL Absolute Immature Granulocyte (auto 0.07 10^3 u/L Immature Granulocytes % 0.40 % Eosinophils % 1.2 % Basophils % 0.2 % Basophils # 0.0 10^3/uL Eosinophil Count 0.2 10^3/uL Prothrombin Time 10.0 SEC Prothrombin Time INR (Non-Therap) 1.0 Activated Partial Thromboplast Time 23.3 SEC D-Dimer 0.99 mg/L Sodium Level 133 mmol/L Potassium Level 3.9 mmol/L Chloride Level 104.0 mmol/L Carbon Dioxide Level 16.8 mmol/L Anion Gap 16.1 Blood Urea Nitrogen 22 mg/dL Creatinine 1.17 mg/dL Estimated GFR () 57.7 BUN/Creatinine Ratio 18.0 Glucose Level 116 mg/dL Calcium Level 9.1 mg/dL Total Bilirubin 0.2 mg/dL Aspartate Amino Transf (AST/SGOT) 17 U/L Alanine Aminotransferase (ALT/SGPT) 26 U/L Alkaline Phosphatase 119 U/L Total Creatine Kinase 55 U/L Creatine Kinase MB < 0.5 ng/mL Troponin I < 0.02 ng/mL < 0.02 ng/mL < 0.02 ng/mL Pro-B-Type Natriuretic Peptide 139 pg/mL Total Protein 6.6 g/dL Albumin 3.6 g/dL Globulin 3.0 Helicobacter pylori Screen NEGATIVE Urine Collection Type UNKNOWN Urine Color YELLOW Urine Appearance CLEAR Urine Bilirubin NEGATIVE MG/DL Urine Ketones NEGATIVE Urine Specific Barnard 1.010 Urine pH 6.5 Urine Protein NEGATIVE Urine Urobilinogen NORMAL Urine Nitrate NEGATIVE Urine Leukocyte Esterase NEGATIVE Urine Blood NEGATIVE Urine Glucose NORMAL Hemoglobin A1c 5.6 % Triglycerides Level 63 mg/dL Cholesterol Level 143 mg/dL LDL Cholesterol, Calculated 91.4 VLDL Cholesterol 12.6 HDL Cholesterol 39 mg/dL Cholesterol Ratio (LDL/HDL) Test 10/22/19 04:52 10/22/19 05:10 10/22/19 06:33 White Blood Count 16.1 10^3/uL Red Blood Count 3.52 10^6/uL Hemoglobin 10.6 g/dL Hematocrit 32.3 % Mean Corpuscular Volume 91.8 fL Mean Corpuscular Hemoglobin 30.1 pg Mean Corpuscular Hemoglobin Concent 32.8 g/dL Red Cell Distribution Width 14.3 % Platelet Count 384 10^3/uL Mean Platelet Volume 9.6 fL Neutrophils (%) (Auto) 93.9 % Lymphocytes (%) (Auto) 4.5 % Monocytes (%) (Auto) 1.1 % Neutrophils # (Auto) 15.1 10^3/uL Lymphocytes # (Auto) 0.7 10^3/uL Monocytes # (Auto) 0.2 10^3/uL Absolute Immature Granulocyte (auto 0.07 10^3 u/L Immature Granulocytes % 0.40 % Eosinophils % 0.0 % Basophils % 0.1 % Basophils # 0.0 10^3/uL Eosinophil Count 0.0 10^3/uL Sodium Level 133 mmol/L Potassium Level 5.9 mmol/L 5.0 mmol/L Chloride Level 105.0 mmol/L Carbon Dioxide Level 14.4 mmol/L Anion Gap 19.5 Blood Urea Nitrogen 18 mg/dL Creatinine 1.57 mg/dL Estimated GFR () 41.1 BUN/Creatinine Ratio 11.0 Glucose Level 306 mg/dL Calcium Level 8.8 mg/dL Total Bilirubin 0.2 mg/dL Aspartate Amino Transf (AST/SGOT) 16 U/L Alanine Aminotransferase (ALT/SGPT) 30 U/L Alkaline Phosphatase 107 U/L Total Protein 6.6 g/dL Albumin 3.2 g/dL Globulin 3.4 Differential Total Cells Counted 100 #CELLS Segmented Neutrophils 96 % Lymphocytes 4 % Platelet Estimate ADEQUATE Platelet Morphology NORMAL Blood Morphology Comment NORMAL MORPHOLOGY Current Medications Medications (Trade) Dose Ordered Sig/Krystle PRN Reason Start Time Stop Time Status Last Admin Acetaminophen/ Codeine Phosphate (Tylenol #4) 1 tablet Q6 10/21/19 18:00 11/20/19 17:59 10/22/19 06:02 Albuterol/ Ipratropium (Duo 0.5-3(2.5) Mg/3 ml) 3 ml RTQ4 10/21/19 17:00 11/20/19 16:59 10/22/19 04:03 Alprazolam (Xanax) 0.5 mg Q8 10/21/19 22:00 11/20/19 21:59 10/22/19 06:01 Aspirin (Aspirin Ec) 81 mg DAILY 10/22/19 09:00 11/21/19 08:59 Atorvastatin Calcium (Lipitor) 5 mg HS 10/21/19 21:00 11/20/19 20:59 10/21/19 20:35 Citalopram Hydrobromide (CeleXA) 10 mg DAILY 10/22/19 09:00 11/21/19 08:59 Enoxaparin Sodium (Lovenox) 67 mg DAILY 10/22/19 09:00 11/20/19 20:59 Fluticasone Propionate (Flonase) 2 sprays BID 10/21/19 21:00 11/20/19 20:59 10/21/19 21:30 Levothyroxine Sodium (Synthroid) 88 mcg ACB 10/22/19 06:30 11/21/19 06:29 10/22/19 06:01 Meropenem 500 mg/ Sodium Chloride 100 ml @ 200 mls/hr Q8H 10/21/19 15:00 11/20/19 14:59 10/22/19 06:01 Methylprednisolone Sodium Succinate (Solu-Medrol) 40 mg Q8HR 10/21/19 22:00 11/20/19 21:59 10/22/19 06:01 Montelukast Sodium (Singulair) 10 mg HS 10/21/19 21:00 11/20/19 20:59 10/21/19 20:35 Pantoprazole Sodium (Protonix Iv) 40 mg DAILY 10/22/19 09:00 11/21/19 08:59 Pantoprazole Sodium (Protonix) 40 mg DAILY 10/22/19 09:00 11/21/19 08:59 Sodium Chloride 1,000 ml @ 100 mls/hr Q10H 10/22/19 06:30 11/21/19 06:29 Tizanidine HCl (Zanaflex) 2 mg Q8HR 10/21/19 22:00 11/20/19 21:59 10/22/19 06:01 Trazodone HCl (Desyrel) 50 mg HS 10/21/19 21:00 11/20/19 20:59 10/21/19 20:34 Sepsis Infection Criteria Pres: None LEVEL 1 SEPSIS INFECTION CRITE: ABX Therapy, Cough/Shortness of Breath LEVEL 2-SIRS (LIST ALL THAT AP: RR>20/min, HR>90/min, WBC>03466 Cardiovascular Evidence: Not Assessed or None Hematologic Evidence: None/Not assessed Hepatic Evidence: Elevated AST(SGOT)>72, Elevated ALT(SGPT)>90 Metabolic Evidence: None/Not assessed Neurological Evidence: None/Not assessed Respiratory Evidence: Need for O2 to keep>90%, O2 SAT<90room air Renal Evidence: None/Not assessed O2 Sat by Pulse Oximetry: 96 Oxygen Flow Rate: 3.00 Assessment/Plan Assessment/Plan Assessment/Plan 1. Chest pain: Trop negative x 3. EKG negative for acute ischemic changes. VQ low prob. Lovenox d/c. Cardiology has assessed the patient and will perform stress test outpatient when patient is more medically stable. 2. Community Acquired Pneumonia/COPD exacerbation/Sepsis: Blood cx negative thus far. Cont IVF, IV abx. CXR pending this AM. Wean IV steroids as tolerated. 3. Metabolic Acidosis:2/2 lactic acidosis, cont IVF. Patient improving slowly. 4. Hypothyroidism; cont Synthroid 5. HLD: cont Statin, Lipid panel reviewed. 6. Hx of Atrophic Kidney: hold Nephrotoxic agents. Will avoid further c ontrast. 7. PPx: Lovenox, PPI 8. Depression/Anxiety: cont Xanax, SSRI 9. RANDA: 2/2 ATN/Sepsis, cont IVF but will decrease rate. Repeat lactic pending. Metabolic panel this afternoon. 10. Hyperkalemia: 5.3 this AM. Cont IVF. Level should improve with diuresis. ANH SCHMIDT MD Oct 23, 2019 08:14
[2019-10-23 08:15] VITALS: BP 148/84
--- NOTE | 2019-10-23 09:06 | DIREP ---
PROCEDURE:CHEST 1 VIEW COMPARISON:[facility], CR, XRAY CHEST SINGLE VW, 10/22/2019, 11:35 AM. INDICATIONS:sepsis FINDINGS: LUNGS/PLEURA:Flattened hemidiaphragms suggestive of hyperinflation. No airspace consolidation or large pleural effusion. VASCULATURE:Normal. Unremarkable pulmonary vasculature. CARDIAC:Normal. No cardiac silhouette abnormality or cardiomegaly. MEDIASTINUM:Normal. No visible mass or adenopathy. BONES:Normal. No fracture or visible bony lesion. OTHER:Negative. CONCLUSION:There are findings suggestive of air trapping/COPD. No evidence of pneumonia infiltrate. No significant change from the prior exam. Dictated by: Joseph Lloyd M.D. on 10/23/2019 at 09:04 AM
[2019-10-23] MEDS: PROTONIX PO SCH (09:46)
[2019-10-23] MEDS: ASPIRIN EC PO SCH (09:47)
[2019-10-23] MEDS: CeleXA PO SCH (09:47)
[2019-10-23] MEDS: MUCINEX PO SCH ×2 (09:47→21:55)
[2019-10-23] MEDS: FLONASE NS SCH ×2 (10:56→22:11)
[2019-10-23] MEDS: TESSALON PERLE PO PRN ×2 (10:56→22:10)
--- NOTE | 2019-10-23 11:19 | NUR ---
DISCHARGE PLAN CM VISITED WITH PATIENT REGARDING D/C PLAN AND GOAL. PATIENT LIVES AT HOME WITH HER SPOUSE. HER DAUGHTER HELPS HER MOST OF THE TIME. SHE STATES SHE IS IND OF ADLS BUT HAS TO STOP ACTIVITIES D/T RESPIRATORY DIFFICULTIES. SHE DOES HAVE A WALKER, CANE, SC, AND NEBULIZER IN THE HOME. SHE REQUESTED AN ORDER FOR A TOILET RISER BUT CM EDUCATED HER THAT [employer] WILL NOT COVER THE TOILET RISER AND SHE CAN PAY OCHO[facility] AT [facility] OR [facility]. SHE ALSO REQUESTED PAPERWORK FOR A MPOA WHICH CM PROVIDED TO HER ALSO. SHE DENIES USE OF OXYGEN. HER PCP IS DR GREGG. SHE IS FINANCIALLY ABLE TO PAY FOR MEDICATIONS. CM EDUCATED ON OP AND HH SERVICES. SHE CURRENTLY HAS [facility] IN PLACE. DISCHARGE GOAL IS FOR PT TO D/C HOME WITH SPOUSE AND [facility] TO FOLLOW. CM WILL CONTINUE TO FOLLOW NEEDS OF THE PT.
[2019-10-23 11:45] VITALS: BP 121/66
[2019-10-23 15:29] LABS: CALCIUM 8.9 mg/dL (8.4-10.5); CARBON DIOXIDE 20.3 mmol/L (20.0-32)
[2019-10-23 17:10] VITALS: BP 143/85
[2019-10-23 20:00] VITALS: BP 144/92
[2019-10-23] MEDS: SINGULAIR PO SCH (21:55)
[2019-10-23] MEDS: DESYREL PO SCH (21:56)
[2019-10-23] MEDS: LIPITOR PO SCH (21:56)
[2019-10-23] MEDS: NICOTINE 21MG PATCH TD SCH (21:58)
[2019-10-24 00:45] VITALS: BP 138/85
[2019-10-24] MEDS: TYLENOL #4 PO SCH ×5 (02:13→19:59)
[2019-10-24] MEDS: DUO 0.5-3(2.5) MG/3 ML IH SCH ×3 (03:11→14:10)
[2019-10-24 04:58] VITALS: BP 145/86
[2019-10-24] MEDS: ZANAFLEX PO SCH ×3 (05:18→21:17)
[2019-10-24] MEDS: XANAX PO SCH ×3 (05:18→21:17)
[2019-10-24] MEDS: SYNTHROID PO SCH (05:19)
[2019-10-24 05:46] LABS: HEMOGLOBIN 10.6 g/dL (12.0-15.0); LYMPHOCYTES % 6.3 % (24.0-44.0); MEAN CELL HGB 29.7 pg (26-34); MEAN CELL HGB CONCENTRATION 32.6 g/dL (33-37); MEAN PLATELET VOLUME 9.7 fL (7.8-11.0); MONOCYTES # 0.5 10^3/uL (0.3-0.8); MONOCYTES % 3.3 % (5.0-12.0); NEUTROPHIL # 14.3 10^3/uL (1.8-7.7); NEUTROPHILS % 89.8 % (41.0-85.0); RED CELL DISTRIBUTION WIDTH 14.5 % (11.5-14.5)
[2019-10-24 06:06] LABS: CARBON DIOXIDE 18.1 mmol/L (20.0-32)
[2019-10-24] MEDS: MEROPENEM 500 MG in NS 100ML 100 ML IV SCH ×3 (06:28→22:54)
[2019-10-24 06:57] VITALS: BP 125/78
[2019-10-24 07:14] LABS: BAND NEUTROPHILS 2 % (2-6); LYMPHOCYTE 7 % (25-36); MICROCYTOSIS 1+ (NEGATIVE); MONOCYTE 2 % (3-9); SEGMENTED NEUTROPHILS 89 % (31-76)
[2019-10-24] MEDS: LACTATED RINGERS 1,000 ML IV SCH ×3 (07:52→20:05)
[2019-10-24] MEDS ORDERED: DUO 0.5-3(2.5) MG/3 ML IH ONE (08:06)
[2019-10-24] MEDS: MUCINEX PO SCH ×2 (08:38→20:00)
[2019-10-24] MEDS: CeleXA PO SCH (08:38)
[2019-10-24] MEDS: ASPIRIN EC PO SCH (08:38)
[2019-10-24] MEDS: NICOTINE 21MG PATCH TD SCH ×2 (08:38→21:22)
[2019-10-24] MEDS: FLONASE NS SCH ×2 (08:38→20:09)
[2019-10-24] MEDS: SOLU-MEDROL IV SCH (08:38)
[2019-10-24] MEDS: PROTONIX PO SCH (08:38)
--- NOTE | 2019-10-24 10:32 | DIREP ---
PROCEDURE:CHEST 1 VIEW COMPARISON:[facility], CT, CTA CHEST, 10/21/2019, 12:22 PM. [facility], CR, XRAY CHEST SINGLE VW, 10/23/2019, 08:18 AM. [facility], CR, XRAY CHEST SINGLE VW, 10/22/2019, 11:35 AM. INDICATIONS:sepsis FINDINGS: LUNGS/PLEURA:No significant pulmonary parenchymal abnormalities. No effusions. VASCULATURE:Normal. Unremarkable pulmonary vasculature. CARDIAC:Normal. No cardiac silhouette abnormality or cardiomegaly. MEDIASTINUM:Normal. No visible mass or adenopathy. BONES:Normal. No fracture or visible bony lesion. OTHER:Negative. CONCLUSION:No infiltrate, no effusion, no significant change. Dictated by: Cas Velasco MD on 10/24/2019 at 10:27 AM
[2019-10-24 11:32] VITALS: BP 137/80
[2019-10-24 13:39] LABS: CALCIUM 9.2 mg/dL (8.4-10.5); CARBON DIOXIDE 18.3 mmol/L (20.0-32)
[2019-10-24] MEDS ORDERED: FLORINEF PO STA (14:44)
--- NOTE | 2019-10-24 14:51 | PRM.PN ---
Subjective Subjective Date: Oct 24, 2019 Time: 14:30 Subjective Lactic remains elevated. Patient much more stable clinically but cannot d/c. Patient offered transfer to be evaluated by Practice Performance Manager. She is refusing currently. 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 Patient History: Asthma G8 SISTER, , Age:56 19 CHILD Chronic obstructive pulmonary disease G8 SISTER, , Age:54 G8 SISTER, , Age:54 Congestive heart failure 32 MOTHER, , Age:54 G8 SISTER, , Age:54 G8 BROTHER, , Age:52 FH: alcoholism G8 SISTER, , Age:54 G8 BROTHER, , Age:52 FH: blindness 33 FATHER, , Age:92 FHx: leukemia G8 SISTER, , Age:54 Hypertension 32 MOTHER, , Age:54 Unknown 32 MOTHER, , Age:54 No Family History of: Alzheimer's disease Cerebrovascular disorder Diabetes insipidus Diabetes mellitus Parkinson's disease VTE VTE Risk Total Score: 3 VTE Risk Score VTE Risk: Score 0-1 = Low Risk (Aggressive mobilization; early ambulation; no VTE prophylaxis required) Score 2: Moderate Risk (Intermittent/Pneumatic Compression Device OR Lovenox/Heparin/Coumadin) Score 3-4: High Risk (Intermittent/Pneumatic Compression Device AND Lovenox/Heparin/Coumadin) Score > or =5: Highest Risk (Intermittent/Pneumatic Compression Device AND Lovenox/Heparin/Coumadin) Antico:Hep/LMWH/Coum/Xarelto: No Mechanical device ordered: No Review of Systems Allergies: Coded Allergies: celecoxib (Unverified Allergy, Severe, SEIZURES, 02/22/15) cephalexin (Unverified Allergy, Mild, N/V, 02/22/15) Scheduled Acetaminophen With Codeine (Tylenol With Codeine #4 Tablet), 1 EACH PO Q6, (Reported) Albuterol Sulfate (Ventolin Hfa), 18 GM IH Q6HR, (Reported) Alprazolam (Alprazolam), 0.5 MG PO Q8, (Reported) Beclomethasone Dipropionate (Beclomethasone Dipropionate), 80 MCG INH BID, (Reported) Citalopram Hydrobromide (Citalopram Hbr), 1 TAB PO DAILY, (Reported) Fluticasone Propionate (Fluticasone Propionate), 2 SPR NA BID, (Reported) Levothyroxine Sodium (Levothyroxine Sodium), 1 TAB PO DAILY, (Reported) Lovastatin (Lovastatin), 20 MG PO HS, (Reported) Megestrol Acetate (Megestrol Acetate), 120 MG PO DAILY24, (Reported) Montelukast Sodium (Montelukast Sodium), 1 TAB PO HS, (Reported) Nicotine (Nicotine Patch), 1 EACH TD DAILY24, (Reported) Omeprazole Magnesium (Prilosec Otc), 20 MG PO DAILY, (Reported) Tizanidine Hcl (Tizanidine Hcl), 2 MG PO Q8HR, (Reported) Trazodone Hcl (Trazodone Hcl), 50 TAB PO HS, (Reported) Discontinued Medications Levothyroxine Sodium (Levothyroxine Sodium), 1 TAB PO DAILY, (Reported) Discontinued Reason: Prescription changed Melatonin (Melatonin), 10 MG PO HS PRN for INSOMNIA, (Reported) Discontinued Reason: No Longer Taking Prednisolone Sod Phosphate (Prednisolone Sodium Phosphate), 1 DROP LEFT EYE TID, (Reported) Discontinued Reason: No Longer Taking Tizanidine Hcl (Tizanidine Hcl), 1 TAB PO BID, (Reported) Discontinued Reason: Prescription changed Objective Vitals and I/O Vital Sign - Last 24 Hours 10/21/19 10/21/19 10/21/19 10/21/19 10:21 10:21 10:21 11:16 Temp 97.9 97.9 97.9 Pulse 78 78 78 Resp 20 16 20 B/P (MAP) 120/65 (83) 130/74 (92) Pulse Ox 99 99 O2 Delivery Room Air 10/21/19 10/21/19 10/21/19 10/21/19 11:21 11:45 12:29 12:30 Pulse 80 Resp 29 B/P (MAP) 139/72 (94) 138/73 (94) 139/74 (95) Pulse Ox 99 10/21/19 10/21/19 10/21/19 10/21/19 12:45 13:00 14:35 15:20 Pulse 78 Resp 20 18 B/P (MAP) 133/71 (91) 143/82 (102) 120/65 (83) Pulse Ox 99 99 O2 Delivery Room Air 10/21/19 10/21/19 10/21/19 10/21/19 15:27 16:17 16:17 16:41 Temp 98.2 Pulse 78 80 89 77 Resp 18 20 20 20 B/P (MAP) 136/78 (97) Pulse Ox 99 99 98 100 O2 Delivery Nasal Cannula Nasal Canula O2 Flow Rate 2.00 3.00 10/21/19 10/21/19 10/21/19 10/21/19 16:45 20:30 20:38 21:42 Pulse 77 80 Resp 20 22 Pulse Ox 100 97 O2 Delivery Nasal Cannula Nasal Cannula O2 Flow Rate 3.00 3.00 10/21/19 10/21/19 10/22/19 10/22/19 22:18 22:32 00:08 00:11 Temp 98.1 Pulse 101 101 83 83 Resp 22 22 18 18 B/P (MAP) 141/97 (112) Pulse Ox 96 96 97 97 O2 Delivery Nasal Canula Nasal Cannula O2 Flow Rate 3.00 2.50 10/22/19 10/22/19 10/22/19 00:22 04:04 04:07 Temp 98.3 Pulse 113 95 95 Resp 20 15 15 B/P (MAP) 101/61 (74) Pulse Ox 94 93 93 O2 Delivery Nasal Canula O2 Flow Rate 3.00 General: Alert, Oriented X3, Cooperative, No acute distress HEENT: Atraumatic, PERRLA, EOMI, Mucous membr. moist/pink Neck: Supple, No JVD Lungs: Clear to auscultation, Normal air movement Heart: Normal S1, Normal S2, No murmurs Abdomen: Normal bowel sounds, Soft, No tenderness Extremities: No edema, Normal pulses, No tenderness/swelling Skin: No rashes, No breakdown, No significant lesion Neuro: Normal speech, Strength at 5/5 X4 ext, Normal tone, Sensation intact, Cranial nerves 3-12 NL Psych/Mental Status: Mental status NL, Mood NL All Results(Lab/Rad) Laboratory Tests Test 10/21/19 10:45 10/21/19 12:57 10/21/19 15:12 10/21/19 22:50 White Blood Count 17.2 10^3/uL Red Blood Count 3.76 10^6/uL Hemoglobin 11.4 g/dL Hematocrit 34.0 % Mean Corpuscular Volume 90.4 fL Mean Corpuscular Hemoglobin 30.3 pg Mean Corpuscular Hemoglobin Concent 33.5 g/dL Red Cell Distribution Width 14.3 % Platelet Count 453 10^3/uL Mean Platelet Volume 9.1 fL Neutrophils (%) (Auto) 74.4 % Lymphocytes (%) (Auto) 14.3 % Monocytes (%) (Auto) 9.5 % Neutrophils # (Auto) 12.8 10^3/uL Lymphocytes # (Auto) 2.5 10^3/uL Monocytes # (Auto) 1.6 10^3/uL Absolute Immature Granulocyte (auto 0.07 10^3 u/L Immature Granulocytes % 0.40 % Eosinophils % 1.2 % Basophils % 0.2 % Basophils # 0.0 10^3/uL Eosinophil Count 0.2 10^3/uL Prothrombin Time 10.0 SEC Prothrombin Time INR (Non-Therap) 1.0 Activated Partial Thromboplast Time 23.3 SEC D-Dimer 0.99 mg/L Sodium Level 133 mmol/L Potassium Level 3.9 mmol/L Chloride Level 104.0 mmol/L Carbon Dioxide Level 16.8 mmol/L Anion Gap 16.1 Blood Urea Nitrogen 22 mg/dL Creatinine 1.17 mg/dL Estimated GFR () 57.7 BUN/Creatinine Ratio 18.0 Glucose Level 116 mg/dL Calcium Level 9.1 mg/dL Total Bilirubin 0.2 mg/dL Aspartate Amino Transf (AST/SGOT) 17 U/L Alanine Aminotransferase (ALT/SGPT) 26 U/L Alkaline Phosphatase 119 U/L Total Creatine Kinase 55 U/L Creatine Kinase MB < 0.5 ng/mL Troponin I < 0.02 ng/mL < 0.02 ng/mL < 0.02 ng/mL Pro-B-Type Natriuretic Peptide 139 pg/mL Total Protein 6.6 g/dL Albumin 3.6 g/dL Globulin 3.0 Helicobacter pylori Screen NEGATIVE Urine Collection Type UNKNOWN Urine Color YELLOW Urine Appearance CLEAR Urine Bilirubin NEGATIVE MG/DL Urine Ketones NEGATIVE Urine Specific [place] 1.010 Urine pH 6.5 Urine Protein NEGATIVE Urine Urobilinogen NORMAL Urine Nitrate NEGATIVE Urine Leukocyte Esterase NEGATIVE Urine Blood NEGATIVE Urine Glucose NORMAL Hemoglobin A1c 5.6 % Triglycerides Level 63 mg/dL Cholesterol Level 143 mg/dL LDL Cholesterol, Calculated 91.4 VLDL Cholesterol 12.6 HDL Cholesterol 39 mg/dL Cholesterol Ratio (LDL/HDL) Test 10/22/19 04:52 10/22/19 05:10 10/22/19 06:33 White Blood Count 16.1 10^3/uL Red Blood Count 3.52 10^6/uL Hemoglobin 10.6 g/dL Hematocrit 32.3 % Mean Corpuscular Volume 91.8 fL Mean Corpuscular Hemoglobin 30.1 pg Mean Corpuscular Hemoglobin Concent 32.8 g/dL Red Cell Distribution Width 14.3 % Platelet Count 384 10^3/uL Mean Platelet Volume 9.6 fL Neutrophils (%) (Auto) 93.9 % Lymphocytes (%) (Auto) 4.5 % Monocytes (%) (Auto) 1.1 % Neutrophils # (Auto) 15.1 10^3/uL Lymphocytes # (Auto) 0.7 10^3/uL Monocytes # (Auto) 0.2 10^3/uL Absolute Immature Granulocyte (auto 0.07 10^3 u/L Immature Granulocytes % 0.40 % Eosinophils % 0.0 % Basophils % 0.1 % Basophils # 0.0 10^3/uL Eosinophil Count 0.0 10^3/uL Sodium Level 133 mmol/L Potassium Level 5.9 mmol/L 5.0 mmol/L Chloride Level 105.0 mmol/L Carbon Dioxide Level 14.4 mmol/L Anion Gap 19.5 Blood Urea Nitrogen 18 mg/dL Creatinine 1.57 mg/dL Estimated GFR () 41.1 BUN/Creatinine Ratio 11.0 Glucose Level 306 mg/dL Calcium Level 8.8 mg/dL Total Bilirubin 0.2 mg/dL Aspartate Amino Transf (AST/SGOT) 16 U/L Alanine Aminotransferase (ALT/SGPT) 30 U/L Alkaline Phosphatase 107 U/L Total Protein 6.6 g/dL Albumin 3.2 g/dL Globulin 3.4 Differential Total Cells Counted 100 #CELLS Segmented Neutrophils 96 % Lymphocytes 4 % Platelet Estimate ADEQUATE Platelet Morphology NORMAL Blood Morphology Comment NORMAL MORPHOLOGY Current Medications Medications (Trade) Dose Ordered Sig/Krystle Route PRN Reason Start Time Stop Time Status Last Admin Dose Admin Ketorolac Tromethamine (Toradol) 30 mg STAT STAT IV 10/21/19 10:32 10/21/19 14:44 DC 10/21/19 10:57 Sodium Chloride 1,000 ml @ 0 mls/hr Q0M STAT IV 10/21/19 10:32 12/11/19 14:43 DC 10/21/19 10:57 Ketorolac Tromethamine (Toradol) 30 mg STK-MED ONCE .ROUTE 10/21/19 10:44 10/21/19 10:46 DC Enoxaparin Sodium (Lovenox) 70 mg OT SQ 10/21/19 13:30 10/22/19 08:17 DC 10/21/19 14:24 Aspirin (Aspirin Ec) 81 mg DAILY PO 10/22/19 09:00 11/21/19 08:59 Enoxaparin Sodium (Lovenox) 70 mg BID SQ 10/21/19 21:00 10/22/19 08:10 DC 10/21/19 20:34 Enoxaparin Sodium (Lovenox) 80 mg STK-MED ONCE SQ 10/21/19 14:01 10/21/19 14:02 DC Pantoprazole Sodium (Protonix) 40 mg DAILY PO 10/22/19 09:00 11/21/19 08:59 Potassium Chloride/Sodium Chloride 1,000 ml @ 100 mls/hr Q10H IV 10/21/19 15:00 10/22/19 06:27 DC 10/22/19 01:07 Albuterol/ Ipratropium (Duo 0.5-3(2.5) Mg/3 ml) 3 ml RTQ4 IH 10/21/19 17:00 11/20/19 16:59 10/22/19 04:03 Methylprednisolone Sodium Succinate (Solu-Medrol) 40 mg Q8HR IV 10/21/19 22:00 11/20/19 21:59 10/22/19 06:01 Methylprednisolone Sodium Succinate (Solu-Medrol) 80 mg STAT STAT IV 10/21/19 14:45 10/21/19 15:01 DC 10/21/19 14:45 Pantoprazole Sodium (Protonix Iv) 40 mg DAILY IV 10/22/19 09:00 11/21/19 08:59 Meropenem 500 mg/ Sodium Chloride 100 ml @ 200 mls/hr Q8H IV 10/21/19 15:00 11/20/19 14:59 10/22/19 06:01 Acetaminophen/ Codeine Phosphate (Tylenol #4) 1 tablet Q6 PO 10/21/19 18:00 11/20/19 17:59 10/22/19 06:02 Alprazolam (Xanax) 0.5 mg Q8 PO 10/21/19 22:00 11/20/19 21:59 10/22/19 06:01 Citalopram Hydrobromide (CeleXA) 10 mg DAILY PO 10/22/19 09:00 11/21/19 08:59 Fluticasone Propionate (Flonase) 2 sprays BID NS 10/21/19 21:00 11/20/19 20:59 10/21/19 21:30 Levothyroxine Sodium (Synthroid) 88 mcg ACB PO 10/22/19 06:30 11/21/19 06:29 10/22/19 06:01 Atorvastatin Calcium (Lipitor) 5 mg HS PO 10/21/19 21:00 11/20/19 20:59 10/21/19 20:35 Montelukast Sodium (Singulair) 10 mg HS PO 10/21/19 21:00 11/20/19 20:59 10/21/19 20:35 Trazodone HCl (Desyrel) 50 mg HS PO 10/21/19 21:00 11/20/19 20:59 10/21/19 20:34 Tizanidine HCl (Zanaflex) 2 mg Q8HR PO 10/21/19 22:00 11/20/19 21:59 10/22/19 06:01 Sodium Chloride 100 ml @ ud STK-MED ONCE IV 10/21/19 14:57 10/21/19 14:59 DC Albuterol/ Ipratropium (Duo 0.5-3(2.5) Mg/3 ml) 3 ml STK-MED ONCE IH 10/21/19 15:32 10/21/19 15:34 DC Lanolin (Lanolin Hydrous) 28 gm STK-MED ONCE TP 10/21/19 21:14 10/21/19 21:16 DC Sodium Chloride 1,000 ml @ 100 mls/hr Q10H IV 10/22/19 06:30 11/21/19 06:29 Sodium Chloride 1,000 ml @ 0 mls/hr Q0M ONCE IV 10/22/19 08:30 10/22/19 08:31 Enoxaparin Sodium (Lovenox) 67 mg DAILY SQ 10/22/19 09:00 11/20/19 20:59 Sodium Chloride 1,000 ml @ 0 mls/hr Q0M ONCE IV 10/22/19 08:30 10/22/19 08:31 UNV Course Sepsis Screening Results: Posi: POSITIVE Sepsis Qualifier/Stage: SEPSIS RISK Duration or Total Time Spent w: 3 hours Vitals & review Data Vital Sign - Last 24 Hours 10/21/19 10/21/19 10/21/19 10/21/19 10:21 10:21 10:21 11:16 Temp 97.9 97.9 97.9 Pulse 78 78 78 Resp 20 16 20 B/P (MAP) 120/65 (83) 130/74 (92) Pulse Ox 99 99 O2 Delivery Room Air 10/21/19 10/21/19 10/21/19 10/21/19 11:21 11:45 12:29 12:30 Pulse 80 Resp 29 B/P (MAP) 139/72 (94) 138/73 (94) 139/74 (95) Pulse Ox 99 10/21/19 10/21/19 10/21/19 10/21/19 12:45 13:00 14:35 15:20 Pulse 78 Resp 20 18 B/P (MAP) 133/71 (91) 143/82 (102) 120/65 (83) Pulse Ox 99 99 O2 Delivery Room Air 10/21/19 10/21/19 10/21/19 10/21/19 15:27 16:17 16:17 16:41 Temp 98.2 Pulse 78 80 89 77 Resp 18 20 20 20 B/P (MAP) 136/78 (97) Pulse Ox 99 99 98 100 O2 Delivery Nasal Cannula Nasal Canula O2 Flow Rate 2.00 3.00 10/21/19 10/21/19 10/21/19 10/21/19 16:45 20:30 20:38 21:42 Pulse 77 80 Resp 20 22 Pulse Ox 100 97 O2 Delivery Nasal Cannula Nasal Cannula O2 Flow Rate 3.00 3.00 10/21/19 10/21/19 10/22/19 10/22/19 22:18 22:32 00:08 00:11 Temp 98.1 Pulse 101 101 83 83 Resp 22 22 18 18 B/P (MAP) 141/97 (112) Pulse Ox 96 96 97 97 O2 Delivery Nasal Canula Nasal Cannula O2 Flow Rate 3.00 2.50 10/22/19 10/22/19 10/22/19 00:22 04:04 04:07 Temp 98.3 Pulse 113 95 95 Resp 20 15 15 B/P (MAP) 101/61 (74) Pulse Ox 94 93 93 O2 Delivery Nasal Canula O2 Flow Rate 3.00 Laboratory Tests Test 10/21/19 10:45 10/21/19 12:57 10/21/19 15:12 10/21/19 22:50 White Blood Count 17.2 10^3/uL Red Blood Count 3.76 10^6/uL Hemoglobin 11.4 g/dL Hematocrit 34.0 % Mean Corpuscular Volume 90.4 fL Mean Corpuscular Hemoglobin 30.3 pg Mean Corpuscular Hemoglobin Concent 33.5 g/dL Red Cell Distribution Width 14.3 % Platelet Count 453 10^3/uL Mean Platelet Volume 9.1 fL Neutrophils (%) (Auto) 74.4 % Lymphocytes (%) (Auto) 14.3 % Monocytes (%) (Auto) 9.5 % Neutrophils # (Auto) 12.8 10^3/uL Lymphocytes # (Auto) 2.5 10^3/uL Monocytes # (Auto) 1.6 10^3/uL Absolute Immature Granulocyte (auto 0.07 10^3 u/L Immature Granulocytes % 0.40 % Eosinophils % 1.2 % Basophils % 0.2 % Basophils # 0.0 10^3/uL Eosinophil Count 0.2 10^3/uL Prothrombin Time 10.0 SEC Prothrombin Time INR (Non-Therap) 1.0 Activated Partial Thromboplast Time 23.3 SEC D-Dimer 0.99 mg/L Sodium Level 133 mmol/L Potassium Level 3.9 mmol/L Chloride Level 104.0 mmol/L Carbon Dioxide Level 16.8 mmol/L Anion Gap 16.1 Blood Urea Nitrogen 22 mg/dL Creatinine 1.17 mg/dL Estimated GFR () 57.7 BUN/Creatinine Ratio 18.0 Glucose Level 116 mg/dL Calcium Level 9.1 mg/dL Total Bilirubin 0.2 mg/dL Aspartate Amino Transf (AST/SGOT) 17 U/L Alanine Aminotransferase (ALT/SGPT) 26 U/L Alkaline Phosphatase 119 U/L Total Creatine Kinase 55 U/L Creatine Kinase MB < 0.5 ng/mL Troponin I < 0.02 ng/mL < 0.02 ng/mL < 0.02 ng/mL Pro-B-Type Natriuretic Peptide 139 pg/mL Total Protein 6.6 g/dL Albumin 3.6 g/dL Globulin 3.0 Helicobacter pylori Screen NEGATIVE Urine Collection Type UNKNOWN Urine Color YELLOW Urine Appearance CLEAR Urine Bilirubin NEGATIVE MG/DL Urine Ketones NEGATIVE Urine Specific [place] 1.010 Urine pH 6.5 Urine Protein NEGATIVE Urine Urobilinogen NORMAL Urine Nitrate NEGATIVE Urine Leukocyte Esterase NEGATIVE Urine Blood NEGATIVE Urine Glucose NORMAL Hemoglobin A1c 5.6 % Triglycerides Level 63 mg/dL Cholesterol Level 143 mg/dL LDL Cholesterol, Calculated 91.4 VLDL Cholesterol 12.6 HDL Cholesterol 39 mg/dL Cholesterol Ratio (LDL/HDL) Test 10/22/19 04:52 10/22/19 05:10 10/22/19 06:33 White Blood Count 16.1 10^3/uL Red Blood Count 3.52 10^6/uL Hemoglobin 10.6 g/dL Hematocrit 32.3 % Mean Corpuscular Volume 91.8 fL Mean Corpuscular Hemoglobin 30.1 pg Mean Corpuscular Hemoglobin Concent 32.8 g/dL Red Cell Distribution Width 14.3 % Platelet Count 384 10^3/uL Mean Platelet Volume 9.6 fL Neutrophils (%) (Auto) 93.9 % Lymphocytes (%) (Auto) 4.5 % Monocytes (%) (Auto) 1.1 % Neutrophils # (Auto) 15.1 10^3/uL Lymphocytes # (Auto) 0.7 10^3/uL Monocytes # (Auto) 0.2 10^3/uL Absolute Immature Granulocyte (auto 0.07 10^3 u/L Immature Granulocytes % 0.40 % Eosinophils % 0.0 % Basophils % 0.1 % Basophils # 0.0 10^3/uL Eosinophil Count 0.0 10^3/uL Sodium Level 133 mmol/L Potassium Level 5.9 mmol/L 5.0 mmol/L Chloride Level 105.0 mmol/L Carbon Dioxide Level 14.4 mmol/L Anion Gap 19.5 Blood Urea Nitrogen 18 mg/dL Creatinine 1.57 mg/dL Estimated GFR () 41.1 BUN/Creatinine Ratio 11.0 Glucose Level 306 mg/dL Calcium Level 8.8 mg/dL Total Bilirubin 0.2 mg/dL Aspartate Amino Transf (AST/SGOT) 16 U/L Alanine Aminotransferase (ALT/SGPT) 30 U/L Alkaline Phosphatase 107 U/L Total Protein 6.6 g/dL Albumin 3.2 g/dL Globulin 3.4 Differential Total Cells Counted 100 #CELLS Segmented Neutrophils 96 % Lymphocytes 4 % Platelet Estimate ADEQUATE Platelet Morphology NORMAL Blood Morphology Comment NORMAL MORPHOLOGY Current Medications Medications (Trade) Dose Ordered Sig/Krystle PRN Reason Start Time Stop Time Status Last Admin Acetaminophen/ Codeine Phosphate (Tylenol #4) 1 tablet Q6 10/21/19 18:00 11/20/19 17:59 10/22/19 06:02 Albuterol/ Ipratropium (Duo 0.5-3(2.5) Mg/3 ml) 3 ml RTQ4 10/21/19 17:00 11/20/19 16:59 10/22/19 04:03 Alprazolam (Xanax) 0.5 mg Q8 10/21/19 22:00 11/20/19 21:59 10/22/19 06:01 Aspirin (Aspirin Ec) 81 mg DAILY 10/22/19 09:00 11/21/19 08:59 Atorvastatin Calcium (Lipitor) 5 mg HS 10/21/19 21:00 11/20/19 20:59 10/21/19 20:35 Citalopram Hydrobromide (CeleXA) 10 mg DAILY 10/22/19 09:00 11/21/19 08:59 Enoxaparin Sodium (Lovenox) 67 mg DAILY 10/22/19 09:00 11/20/19 20:59 Fluticasone Propionate (Flonase) 2 sprays BID 10/21/19 21:00 11/20/19 20:59 10/21/19 21:30 Levothyroxine Sodium (Synthroid) 88 mcg ACB 10/22/19 06:30 11/21/19 06:29 10/22/19 06:01 Meropenem 500 mg/ Sodium Chloride 100 ml @ 200 mls/hr Q8H 10/21/19 15:00 11/20/19 14:59 10/22/19 06:01 Methylprednisolone Sodium Succinate (Solu-Medrol) 40 mg Q8HR 10/21/19 22:00 11/20/19 21:59 10/22/19 06:01 Montelukast Sodium (Singulair) 10 mg HS 10/21/19 21:00 11/20/19 20:59 10/21/19 20:35 Pantoprazole Sodium (Protonix Iv) 40 mg DAILY 10/22/19 09:00 11/21/19 08:59 Pantoprazole Sodium (Protonix) 40 mg DAILY 10/22/19 09:00 11/21/19 08:59 Sodium Chloride 1,000 ml @ 100 mls/hr Q10H 10/22/19 06:30 11/21/19 06:29 Tizanidine HCl (Zanaflex) 2 mg Q8HR 10/21/19 22:00 11/20/19 21:59 10/22/19 06:01 Trazodone HCl (Desyrel) 50 mg HS 10/21/19 21:00 11/20/19 20:59 10/21/19 20:34 Sepsis Infection Criteria Pres: None LEVEL 1 SEPSIS INFECTION CRITE: ABX Therapy, Cough/Shortness of Breath LEVEL 2-SIRS (LIST ALL THAT AP: [id number] Cardiovascular Evidence: Not Assessed or None Hematologic Evidence: None/Not assessed Hepatic Evidence: None/Not assessed Metabolic Evidence: None/Not assessed Neurological Evidence: None/Not assessed Respiratory Evidence: Need for O2 to keep>90%, O2 SAT<90room air Renal Evidence: None/Not assessed O2 Sat by Pulse Oximetry: 97 Oxygen Flow Rate: 3.00 Assessment/Plan Assessment/Plan Assessment/Plan 1. Chest pain: Trop negative x 3. EKG negative for acute ischemic changes. VQ low prob. Lovenox d/c. Cardiology has assessed the patient and will perform stress test outpatient when patient is more medically stable. 2. Community Acquired Pneumonia/COPD exacerbation/Sepsis: Blood cx negative. Cont IVF, IV abx. CXR reviewed. Lactic remains elevated. 3. Metabolic Acidosis: lactic remains elevated. 2/2 hx of Atrophic kidney and likely RTA type 4. Will cont IVF and start Fludrocortisone. Patient offered transfer to see Practice Performance Manager and refused. Patient agreeable to treatment plan. 4. Hypothyroidism; cont Synthroid 5. HLD: cont Statin, Lipid panel reviewed. 6. Hx of Atrophic Kidney: hold Nephrotoxic agents. Will avoid further contrast. 7. PPx: Lovenox, PPI 8. Depression/Anxiety: cont Xanax, SSRI 9. RANDA: improved, daily metabolic panel 10. Hyperkalemia: improved with increased urine output; however, concern for mineralocorticoid deficiency. Start fludrocortisone and recheck metabolic panel in AM. ANH SCHMIDT MD Oct 24, 2019 14:51
[2019-10-24] MEDS ORDERED: DUO 0.5-3(2.5) MG/3 ML IH PRN (15:00)
[2019-10-24] MEDS ORDERED: COLACE PO STA (15:01)
[2019-10-24] MEDS: TESSALON PERLE PO PRN ×2 (15:06→20:00)
[2019-10-24 16:50] VITALS: BP 130/92
[2019-10-24 19:42] VITALS: BP 129/83
[2019-10-24] MEDS: DESYREL PO SCH (20:00)
[2019-10-24] MEDS: SINGULAIR PO SCH (20:00)
[2019-10-24] MEDS: LIPITOR PO SCH (20:00)
[2019-10-24] MEDS: COLACE PO SCH (20:01)
[2019-10-25 03:54] VITALS: BP 136/76
[2019-10-25 05:24] LABS: BASOPHIL % 0.1 % (0.0-0.2); EOSINOPHIL % 0.1 % (0.0-5.0); LYMPHOCYTES # 3.5 10^3/uL (1.0-4.8); MEAN CELL HGB 29.3 pg (26-34); MEAN CELL HGB CONCENTRATION 32.6 g/dL (33-37); MEAN CORP VOLUME 89.9 fL (78-100); MEAN PLATELET VOLUME 9.5 fL (7.8-11.0); MONOCYTES # 1.4 10^3/uL (0.3-0.8); MONOCYTES % 9.4 % (5.0-12.0); NEUTROPHIL # 9.5 10^3/uL (1.8-7.7); NEUTROPHILS % 65.5 % (41.0-85.0); RED CELL DISTRIBUTION WIDTH 14.4 % (11.5-14.5); WHITE BLOOD CELL 14.5 10^3/uL (4.5-11.0)
[2019-10-25] MEDS: SYNTHROID PO SCH (05:24)
[2019-10-25] MEDS: ZANAFLEX PO SCH (05:25)
[2019-10-25] MEDS: XANAX PO SCH (05:25)
[2019-10-25] MEDS: TYLENOL #4 PO SCH (05:25)
[2019-10-25] MEDS: MEROPENEM 500 MG in NS 100ML 100 ML IV SCH (05:25)
[2019-10-25 05:51] LABS: CARBON DIOXIDE 23.9 mmol/L (20.0-32)
[2019-10-25 05:52] LABS: CALCIUM 8.6 mg/dL (8.4-10.5)
[2019-10-25] MEDS ORDERED: SOLU-MEDROL ONE (07:56)
[2019-10-25] MEDS ORDERED: FLORINEF ONE (07:57)
[2019-10-25] MEDS: PROTONIX PO SCH (08:01)
[2019-10-25] MEDS: MUCINEX PO SCH (08:01)
[2019-10-25] MEDS: FLONASE NS SCH (08:01)
[2019-10-25] MEDS: ASPIRIN EC PO SCH (08:01)
[2019-10-25] MEDS: NICOTINE 21MG PATCH TD SCH (08:01)
[2019-10-25] MEDS: CeleXA PO SCH (08:01)
[2019-10-25] MEDS: COLACE PO SCH (08:01)
[2019-10-25 08:06] VITALS: BP 129/78
[2019-10-25] MEDS ORDERED: KLOR-CON 10 PO STA (08:17)
[2019-10-25] MEDS ORDERED: KLOR-CON 10 PO ONE (08:25)
[2019-10-25] MEDS ORDERED: GUAI600T31 PO (08:36)
[2019-10-25] MEDS ORDERED: BENZ100C PO (08:36)
[2019-10-25] MEDS ORDERED: PRED20TA PO (08:36)
[2019-10-25] MEDS ORDERED: POTA10TA6 PO (08:36)
[2019-10-25] MEDS ORDERED: ASPI-655 PO (08:36)
[2019-10-25] MEDS ORDERED: FLUD0.1T PO (08:36)
[2019-10-25] MEDS ORDERED: AMOX1TAB63 PO (08:39)
--- NOTE | 2019-10-25 08:53 | PRM.DC ---
Discharge Summary Date of Discharge: Oct 25, 2019 Time of Request to Discharge: 08:30 Reason for Visit: chest pain Hospital Course Patient admitted with chest pain for ACS rule out. Patient also found to be septic and in COPD exacerbation. Patient started on IVF, IV abx, and blood cx ordered. Patient also started on IV steroids. Patient was seen by Alley Tender for chest pain and he recommended medical management and f/u outpatient for Cardiac stress testing when infection was controlled. Symptoms slowly improved; however, patient continued to have Metabolic/Lactic Acidosis inspite of IV abx and IVF. 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 Patient started on Fludrocortisone and overnight acidosis resolved and Lactic acid dropped to under 1. Patient will be d/c on cough medications, short course of steroids/abx, Potassium, and Fludrocortisone. Patient counseled that she may experience fluid retention/swelling. She was also informed that medication would need to be titrated to her as individual. She will f/u with Dr. Frey in 3 days. Patient given strict return precautions. Patient History: Asthma G8 SISTER, , Age:54 19 CHILD Chronic obstructive pulmonary disease G8 SISTER, , Age:54 G8 SISTER, , Age:54 Congestive heart failure 32 MOTHER, , Age:54 G8 SISTER, , Age:54 G8 BROTHER, , Age:52 FH: alcoholism G8 SISTER, , Age:54 G8 BROTHER, , Age:52 FH: blindness 33 FATHER, , Age:92 FHx: leukemia G8 SISTER, , Age:54 Hypertension 32 MOTHER, , Age:54 Unknown 32 MOTHER, , Age:54 No Family History of: Alzheimer's disease Cerebrovascular disorder Diabetes insipidus Diabetes mellitus Parkinson's disease General: Alert, Oriented X3, Cooperative, No acute distress HEENT: Atraumatic, PERRLA, EOMI, Mucous membr. moist/pink Neck: Supple, No JVD Lungs: Clear to auscultation, Other (mild decreased aeration) Heart: Regular rate, Normal S1, Normal S2, No murmurs Abdomen: Normal bowel sounds, Soft, No tenderness Extremities: No edema, Normal pulses, No tenderness/swelling Skin: No rashes, No breakdown, No significant lesion Neuro: Normal speech, Strength at 5/5 X4 ext, Normal tone, Sensation intact, Cranial nerves 3-12 NL Psych/Mental Status: Mental status NL, Mood NL Scheduled Acetaminophen With Codeine (Tylenol With Codeine #4 Tablet), 1 EACH PO Q6, (Reported) Albuterol Sulfate (Ventolin Hfa), 18 GM IH Q6HR, (Reported) Alprazolam (Alprazolam), 0.5 MG PO Q8, (Reported) Amoxicillin/Potassium Clav (Augmentin 875-125 Tablet), 1 EACH PO BID Aspirin (Aspirin Ec), 81 MG PO DAILY Beclomethasone Dipropionate (Beclomethasone Dipropionate), 80 MCG INH BID, (Reported) Citalopram Hydrobromide (Citalopram Hbr), 1 TAB PO DAILY, (Reported) Fludrocortisone Acetate (Fludrocortisone Acetate), 0.1 MG PO MWF Fluticasone Propionate (Fluticasone Propionate), 2 SPR NA BID, (Reported) Guaifenesin (Mucinex), 600 MG PO BID Levothyroxine Sodium (Levothyroxine Sodium), 1 TAB PO DAILY, (Reported) Lovastatin (Lovastatin), 20 MG PO HS, (Reported) Megestrol Acetate (Megestrol Acetate), 120 MG PO DAILY24, (Reported) Montelukast Sodium (Montelukast Sodium), 1 TAB PO HS, (Reported) Nicotine (Nicotine Patch), 1 EACH TD DAILY24, (Reported) Omeprazole Magnesium (Prilosec Otc), 20 MG PO DAILY, (Reported) Potassium Chloride (Klor-Con 10), 20 MEQ PO DAILY Prednisone (Prednisone), 20 MG PO DAILY24 Tizanidine Hcl (Tizanidine Hcl), 2 MG PO Q8HR, (Reported) Trazodone Hcl (Trazodone Hcl), 50 TAB PO HS, (Reported) Scheduled PRN Benzonatate (Tessalon Perle), 100 MG PO TID PRN for COUGH Discontinued Medications Levothyroxine Sodium (Levothyroxine Sodium), 1 TAB PO DAILY, (Reported) Discontinued Reason: Prescription changed Melatonin (Melatonin), 10 MG PO HS PRN for INSOMNIA, (Reported) Discontinued Reason: No Longer Taking Prednisolone Sod Phosphate (Prednisolone Sodium Phosphate), 1 DROP LEFT EYE TID, (Reported) Discontinued Reason: No Longer Taking Tizanidine Hcl (Tizanidine Hcl), 1 TAB PO BID, (Reported) Discontinued Reason: Prescription changed Sepsis Evaluation @ Discharge Vital Sign - Last 24 Hours 10/21/19 10/21/19 10/21/19 10/21/19 10:21 10:21 10:21 11:16 Temp 97.9 97.9 97.9 Pulse 78 78 78 Resp 20 16 20 B/P (MAP) 120/65 (83) 130/74 (92) Pulse Ox 99 99 O2 Delivery Room Air 10/21/19 10/21/19 10/21/19 10/21/19 11:21 11:45 12:29 12:30 Pulse 80 Resp 29 B/P (MAP) 139/72 (94) 138/73 (94) 139/74 (95) Pulse Ox 99 10/21/19 10/21/19 10/21/19 10/21/19 12:45 13:00 14:35 15:20 Pulse 78 Resp 20 18 B/P (MAP) 133/71 (91) 143/82 (102) 120/65 (83) Pulse Ox 99 99 O2 Delivery Room Air 10/21/19 10/21/19 10/21/19 10/21/19 15:27 16:17 16:17 16:41 Temp 98.2 Pulse 78 80 89 77 Resp 18 20 20 20 B/P (MAP) 136/78 (97) Pulse Ox 99 99 98 100 O2 Delivery Nasal Cannula Nasal Canula O2 Flow Rate 2.00 3.00 10/21/19 10/21/19 10/21/19 10/21/19 16:45 20:30 20:38 21:42 Pulse 77 80 Resp 20 22 Pulse Ox 100 97 O2 Delivery Nasal Cannula Nasal Cannula O2 Flow Rate 3.00 3.00 10/21/19 10/21/19 10/22/19 10/22/19 22:18 22:32 00:08 00:11 Temp 98.1 Pulse 101 101 83 83 Resp 22 22 18 18 B/P (MAP) 141/97 (112) Pulse Ox 96 96 97 97 O2 Delivery Nasal Canula Nasal Cannula O2 Flow Rate 3.00 2.50 10/22/19 10/22/19 10/22/19 00:22 04:04 04:07 Temp 98.3 Pulse 113 95 95 Resp 20 15 15 B/P (MAP) 101/61 (74) Pulse Ox 94 93 93 O2 Delivery Nasal Canula O2 Flow Rate 3.00 Laboratory Tests Test 10/21/19 10:45 10/21/19 12:57 10/21/19 15:12 10/21/19 22:50 White Blood Count 17.2 10^3/uL Red Blood Count 3.76 10^6/uL Hemoglobin 11.4 g/dL Hematocrit 34.0 % Mean Corpuscular Volume 90.4 fL Mean Corpuscular Hemoglobin 30.3 pg Mean Corpuscular Hemoglobin Concent 33.5 g/dL Red Cell Distribution Width 14.3 % Platelet Count 453 10^3/uL Mean Platelet Volume 9.1 fL Neutrophils (%) (Auto) 74.4 % Lymphocytes (%) (Auto) 14.3 % Monocytes (%) (Auto) 9.5 % Neutrophils # (Auto) 12.8 10^3/uL Lymphocytes # (Auto) 2.5 10^3/uL Monocytes # (Auto) 1.6 10^3/uL Absolute Immature Granulocyte (auto 0.07 10^3 u/L Immature Granulocytes % 0.40 % Eosinophils % 1.2 % Basophils % 0.2 % Basophils # 0.0 10^3/uL Eosinophil Count 0.2 10^3/uL Prothrombin Time 10.0 SEC Prothrombin Time INR (Non-Therap) 1.0 Activated Partial Thromboplast Time 23.3 SEC D-Dimer 0.99 mg/L Sodium Level 133 mmol/L Potassium Level 3.9 mmol/L Chloride Level 104.0 mmol/L Carbon Dioxide Level 16.8 mmol/L Anion Gap 16.1 Blood Urea Nitrogen 22 mg/dL Creatinine 1.17 mg/dL Estimated GFR () 57.7 BUN/Creatinine Ratio 18.0 Glucose Level 116 mg/dL Calcium Level 9.1 mg/dL Total Bilirubin 0.2 mg/dL Aspartate Amino Transf (AST/SGOT) 17 U/L Alanine Aminotransferase (ALT/SGPT) 26 U/L Alkaline Phosphatase 119 U/L Total Creatine Kinase 55 U/L Creatine Kinase MB < 0.5 ng/mL Troponin I < 0.02 ng/mL < 0.02 ng/mL < 0.02 ng/mL Pro-B-Type Natriuretic Peptide 139 pg/mL Total Protein 6.6 g/dL Albumin 3.6 g/dL Globulin 3.0 Helicobacter pylori Screen NEGATIVE Urine Collection Type UNKNOWN Urine Color YELLOW Urine Appearance CLEAR Urine Bilirubin NEGATIVE MG/DL Urine Ketones NEGATIVE Urine Specific [place] 1.010 Urine pH 6.5 Urine Protein NEGATIVE Urine Urobilinogen NORMAL Urine Nitrate NEGATIVE Urine Leukocyte Esterase NEGATIVE Urine Blood NEGATIVE Urine Glucose NORMAL Hemoglobin A1c 5.6 % Triglycerides Level 63 mg/dL Cholesterol Level 143 mg/dL LDL Cholesterol, Calculated 91.4 VLDL Cholesterol 12.6 HDL Cholesterol 39 mg/dL Cholesterol Ratio (LDL/HDL) Test 10/22/19 04:52 10/22/19 05:10 10/22/19 06:33 White Blood Count 16.1 10^3/uL Red Blood Count 3.52 10^6/uL Hemoglobin 10.6 g/dL Hematocrit 32.3 % Mean Corpuscular Volume 91.8 fL Mean Corpuscular Hemoglobin 30.1 pg Mean Corpuscular Hemoglobin Concent 32.8 g/dL Red Cell Distribution Width 14.3 % Platelet Count 384 10^3/uL Mean Platelet Volume 9.6 fL Neutrophils (%) (Auto) 93.9 % Lymphocytes (%) (Auto) 4.5 % Monocytes (%) (Auto) 1.1 % Neutrophils # (Auto) 15.1 10^3/uL Lymphocytes # (Auto) 0.7 10^3/uL Monocytes # (Auto) 0.2 10^3/uL Absolute Immature Granulocyte (auto 0.07 10^3 u/L Immature Granulocytes % 0.40 % Eosinophils % 0.0 % Basophils % 0.1 % Basophils # 0.0 10^3/uL Eosinophil Count 0.0 10^3/uL Sodium Level 133 mmol/L Potassium Level 5.9 mmol/L 5.0 mmol/L Chloride Level 105.0 mmol/L Carbon Dioxide Level 14.4 mmol/L Anion Gap 19.5 Blood Urea Nitrogen 18 mg/dL Creatinine 1.57 mg/dL Estimated GFR () 41.1 BUN/Creatinine Ratio 11.0 Glucose Level 306 mg/dL Calcium Level 8.8 mg/dL Total Bilirubin 0.2 mg/dL Aspartate Amino Transf (AST/SGOT) 16 U/L Alanine Aminotransferase (ALT/SGPT) 30 U/L Alkaline Phosphatase 107 U/L Total Protein 6.6 g/dL Albumin 3.2 g/dL Globulin 3.4 Differential Total Cells Counted 100 #CELLS Segmented Neutrophils 96 % Lymphocytes 4 % Platelet Estimate ADEQUATE Platelet Morphology NORMAL Blood Morphology Comment NORMAL MORPHOLOGY Current Medications Medications (Trade) Dose Ordered Sig/Krystle PRN Reason Start Time Stop Time Status Last Admin Acetaminophen/ Codeine Phosphate (Tylenol #4) 1 tablet Q6 10/21/19 18:00 11/20/19 17:59 10/22/19 06:02 Albuterol/ Ipratropium (Duo 0.5-3(2.5) Mg/3 ml) 3 ml RTQ4 10/21/19 17:00 11/20/19 16:59 10/22/19 04:03 Alprazolam (Xanax) 0.5 mg Q8 10/21/19 22:00 11/20/19 21:59 10/22/19 06:01 Aspirin (Aspirin Ec) 81 mg DAILY 10/22/19 09:00 11/21/19 08:59 Atorvastatin Calcium (Lipitor) 5 mg HS 10/21/19 21:00 11/20/19 20:59 10/21/19 20:35 Citalopram Hydrobromide (CeleXA) 10 mg DAILY 10/22/19 09:00 11/21/19 08:59 Enoxaparin Sodium (Lovenox) 67 mg DAILY 10/22/19 09:00 11/20/19 20:59 Fluticasone Propionate (Flonase) 2 sprays BID 10/21/19 21:00 11/20/19 20:59 10/21/19 21:30 Levothyroxine Sodium (Synthroid) 88 mcg ACB 10/22/19 06:30 11/21/19 06:29 10/22/19 06:01 Meropenem 500 mg/ Sodium Chloride 100 ml @ 200 mls/hr Q8H 10/21/19 15:00 11/20/19 14:59 10/22/19 06:01 Methylprednisolone Sodium Succinate (Solu-Medrol) 40 mg Q8HR 10/21/19 22:00 11/20/19 21:59 10/22/19 06:01 Montelukast Sodium (Singulair) 10 mg HS 10/21/19 21:00 11/20/19 20:59 10/21/19 20:35 Pantoprazole Sodium (Protonix Iv) 40 mg DAILY 10/22/19 09:00 11/21/19 08:59 Pantoprazole Sodium (Protonix) 40 mg DAILY 10/22/19 09:00 11/21/19 08:59 Sodium Chloride 1,000 ml @ 100 mls/hr Q10H 10/22/19 06:30 11/21/19 06:29 Tizanidine HCl (Zanaflex) 2 mg Q8HR 10/21/19 22:00 11/20/19 21:59 10/22/19 06:01 Trazodone HCl (Desyrel) 50 mg HS 10/21/19 21:00 11/20/19 20:59 10/21/19 20:34 Course Sepsis Screening Results: Posi: POSITIVE Sepsis Qualifier/Stage: SEPSIS RISK Duration or Total Time Spent w: 3 hours Vitals & review Data Vital Sign - Last 24 Hours 10/21/19 10/21/19 10/21/19 10/21/19 10:21 10:21 10:21 11:16 Temp 97.9 97.9 97.9 Pulse 78 78 78 Resp 20 16 20 B/P (MAP) 120/65 (83) 130/74 (92) Pulse Ox 99 99 O2 Delivery Room Air 10/21/19 10/21/19 10/21/19 10/21/19 11:21 11:45 12:29 12:30 Pulse 80 Resp 29 B/P (MAP) 139/72 (94) 138/73 (94) 139/74 (95) Pulse Ox 99 10/21/19 10/21/19 10/21/19 10/21/19 12:45 13:00 14:35 15:20 Pulse 78 Resp 20 18 B/P (MAP) 133/71 (91) 143/82 (102) 120/65 (83) Pulse Ox 99 99 O2 Delivery Room Air 10/21/19 10/21/19 10/21/19 10/21/19 15:27 16:17 16:17 16:41 Temp 98.2 Pulse 78 80 89 77 Resp 18 20 20 20 B/P (MAP) 136/78 (97) Pulse Ox 99 99 98 100 O2 Delivery Nasal Cannula Nasal Canula O2 Flow Rate 2.00 3.00 10/21/19 10/21/19 10/21/19 10/21/19 16:45 20:30 20:38 21:42 Pulse 77 80 Resp 20 22 Pulse Ox 100 97 O2 Delivery Nasal Cannula Nasal Cannula O2 Flow Rate 3.00 3.00 10/21/19 10/21/19 10/22/19 10/22/19 22:18 22:32 00:08 00:11 Temp 98.1 Pulse 101 101 83 83 Resp 22 22 18 18 B/P (MAP) 141/97 (112) Pulse Ox 96 96 97 97 O2 Delivery Nasal Canula Nasal Cannula O2 Flow Rate 3.00 2.50 10/22/19 10/22/19 10/22/19 00:22 04:04 04:07 Temp 98.3 Pulse 113 95 95 Resp 20 15 15 B/P (MAP) 101/61 (74) Pulse Ox 94 93 93 O2 Delivery Nasal Canula O2 Flow Rate 3.00 Laboratory Tests Test 10/21/19 10:45 10/21/19 12:57 10/21/19 15:12 10/21/19 22:50 White Blood Count 17.2 10^3/uL Red Blood Count 3.76 10^6/uL Hemoglobin 11.4 g/dL Hematocrit 34.0 % Mean Corpuscular Volume 90.4 fL Mean Corpuscular Hemoglobin 30.3 pg Mean Corpuscular Hemoglobin Concent 33.5 g/dL Red Cell Distribution Width 14.3 % Platelet Count 453 10^3/uL Mean Platelet Volume 9.1 fL Neutrophils (%) (Auto) 74.4 % Lymphocytes (%) (Auto) 14.3 % Monocytes (%) (Auto) 9.5 % Neutrophils # (Auto) 12.8 10^3/uL Lymphocytes # (Auto) 2.5 10^3/uL Monocytes # (Auto) 1.6 10^3/uL Absolute Immature Granulocyte (auto 0.07 10^3 u/L Immature Granulocytes % 0.40 % Eosinophils % 1.2 % Basophils % 0.2 % Basophils # 0.0 10^3/uL Eosinophil Count 0.2 10^3/uL Prothrombin Time 10.0 SEC Prothrombin Time INR (Non-Therap) 1.0 Activated Partial Thromboplast Time 23.3 SEC D-Dimer 0.99 mg/L Sodium Level 133 mmol/L Potassium Level 3.9 mmol/L Chloride Level 104.0 mmol/L Carbon Dioxide Level 16.8 mmol/L Anion Gap 16.1 Blood Urea Nitrogen 22 mg/dL Creatinine 1.17 mg/dL Estimated GFR () 57.7 BUN/Creatinine Ratio 18.0 Glucose Level 116 mg/dL Calcium Level 9.1 mg/dL Total Bilirubin 0.2 mg/dL Aspartate Amino Transf (AST/SGOT) 17 U/L Alanine Aminotransferase (ALT/SGPT) 26 U/L Alkaline Phosphatase 119 U/L Total Creatine Kinase 55 U/L Creatine Kinase MB < 0.5 ng/mL Troponin I < 0.02 ng/mL < 0.02 ng/mL < 0.02 ng/mL Pro-B-Type Natriuretic Peptide 139 pg/mL Total Protein 6.6 g/dL Albumin 3.6 g/dL Globulin 3.0 Helicobacter pylori Screen NEGATIVE Urine Collection Type UNKNOWN Urine Color YELLOW Urine Appearance CLEAR Urine Bilirubin NEGATIVE MG/DL Urine Ketones NEGATIVE Urine Specific [place] 1.010 Urine pH 6.5 Urine Protein NEGATIVE Urine Urobilinogen NORMAL Urine Nitrate NEGATIVE Urine Leukocyte Esterase NEGATIVE Urine Blood NEGATIVE Urine Glucose NORMAL Hemoglobin A1c 5.6 % Triglycerides Level 63 mg/dL Cholesterol Level 143 mg/dL LDL Cholesterol, Calculated 91.4 VLDL Cholesterol 12.6 HDL Cholesterol 39 mg/dL Cholesterol Ratio (LDL/HDL) Test 10/22/19 04:52 10/22/19 05:10 10/22/19 06:33 White Blood Count 16.1 10^3/uL Red Blood Count 3.52 10^6/uL Hemoglobin 10.6 g/dL Hematocrit 32.3 % Mean Corpuscular Volume 91.8 fL Mean Corpuscular Hemoglobin 30.1 pg Mean Corpuscular Hemoglobin Concent 32.8 g/dL Red Cell Distribution Width 14.3 % Platelet Count 384 10^3/uL Mean Platelet Volume 9.6 fL Neutrophils (%) (Auto) 93.9 % Lymphocytes (%) (Auto) 4.5 % Monocytes (%) (Auto) 1.1 % Neutrophils # (Auto) 15.1 10^3/uL Lymphocytes # (Auto) 0.7 10^3/uL Monocytes # (Auto) 0.2 10^3/uL Absolute Immature Granulocyte (auto 0.07 10^3 u/L Immature Granulocytes % 0.40 % Eosinophils % 0.0 % Basophils % 0.1 % Basophils # 0.0 10^3/uL Eosinophil Count 0.0 10^3/uL Sodium Level 133 mmol/L Potassium Level 5.9 mmol/L 5.0 mmol/L Chloride Level 105.0 mmol/L Carbon Dioxide Level 14.4 mmol/L Anion Gap 19.5 Blood Urea Nitrogen 18 mg/dL Creatinine 1.57 mg/dL Estimated GFR () 41.1 BUN/Creatinine Ratio 11.0 Glucose Level 306 mg/dL Calcium Level 8.8 mg/dL Total Bilirubin 0.2 mg/dL Aspartate Amino Transf (AST/SGOT) 16 U/L Alanine Aminotransferase (ALT/SGPT) 30 U/L Alkaline Phosphatase 107 U/L Total Protein 6.6 g/dL Albumin 3.2 g/dL Globulin 3.4 Differential Total Cells Counted 100 #CELLS Segmented Neutrophils 96 % Lymphocytes 4 % Platelet Estimate ADEQUATE Platelet Morphology NORMAL Blood Morphology Comment NORMAL MORPHOLOGY Current Medications Medications (Trade) Dose Ordered Sig/Krystle PRN Reason Start Time Stop Time Status Last Admin Acetaminophen/ Codeine Phosphate (Tylenol #4) 1 tablet Q6 10/21/19 18:00 11/20/19 17:59 10/22/19 06:02 Albuterol/ Ipratropium (Duo 0.5-3(2.5) Mg/3 ml) 3 ml RTQ4 10/21/19 17:00 11/20/19 16:59 10/22/19 04:03 Alprazolam (Xanax) 0.5 mg Q8 10/21/19 22:00 11/20/19 21:59 10/22/19 06:01 Aspirin (Aspirin Ec) 81 mg DAILY 10/22/19 09:00 11/21/19 08:59 Atorvastatin Calcium (Lipitor) 5 mg HS 10/21/19 21:00 11/20/19 20:59 10/21/19 20:35 Citalopram Hydrobromide (CeleXA) 10 mg DAILY 10/22/19 09:00 11/21/19 08:59 Enoxaparin Sodium (Lovenox) 67 mg DAILY 10/22/19 09:00 11/20/19 20:59 Fluticasone Propionate (Flonase) 2 sprays BID 10/21/19 21:00 11/20/19 20:59 10/21/19 21:30 Levothyroxine Sodium (Synthroid) 88 mcg ACB 10/22/19 06:30 11/21/19 06:29 10/22/19 06:01 Meropenem 500 mg/ Sodium Chloride 100 ml @ 200 mls/hr Q8H 10/21/19 15:00 11/20/19 14:59 10/22/19 06:01 Methylprednisolone Sodium Succinate (Solu-Medrol) 40 mg Q8HR 10/21/19 22:00 11/20/19 21:59 10/22/19 06:01 Montelukast Sodium (Singulair) 10 mg HS 10/21/19 21:00 11/20/19 20:59 10/21/19 20:35 Pantoprazole Sodium (Protonix Iv) 40 mg DAILY 10/22/19 09:00 11/21/19 08:59 Pantoprazole Sodium (Protonix) 40 mg DAILY 10/22/19 09:00 11/21/19 08:59 Sodium Chloride 1,000 ml @ 100 mls/hr Q10H 10/22/19 06:30 11/21/19 06:29 Tizanidine HCl (Zanaflex) 2 mg Q8HR 10/21/19 22:00 11/20/19 21:59 10/22/19 06:01 Trazodone HCl (Desyrel) 50 mg HS 10/21/19 21:00 11/20/19 20:59 10/21/19 20:34 Sepsis Infection Criteria Pres: None LEVEL 1 SEPSIS INFECTION CRITE: ABX Therapy, Cough/Shortness of Breath LEVEL 2-SIRS (LIST ALL THAT AP: [id number] Cardiovascular Evidence: Not Assessed or None Hematologic Evidence: None/Not assessed Hepatic Evidence: None/Not assessed Metabolic Evidence: None/Not assessed Neurological Evidence: None/Not assessed Respiratory Evidence: Need for O2 to keep>90%, O2 SAT<90room air Renal Evidence: None/Not assessed O2 Sat by Pulse Oximetry: 98 Oxygen Flow Rate: 3.00 Plan Discharge Date: Oct 25, 2019 Dicharge DX: Sepsis, Pneumonia, Metabolic Acidosis/RTA type 4, chest pain Discharge Disposition: Stable Plan ok to d/c to home self care medications: per med rec list Diet: AHA Activity: as tolerated F/U with Dr Frey in 3 days F/U with Cardiology in 1-2 weeks Return to care for any worsening/concerning symptoms ANH SCHMIDT MD Oct 25, 2019 08:53
[2019-10-25] MEDS ORDERED: KLOR-CON 10 PO SCH (09:00)
[2019-10-25] MEDS ORDERED: SOLU-MEDROL IV SCH (09:00)
[2019-10-25] MEDS ORDERED: FLORINEF PO SCH (09:00)
[2019-10-25 09:09] VITALS: BP 129/78
--- NOTE | 2019-10-25 09:10 | NUR ---
DISCHARGE PATIENT BEING DISCHARGED HOME AT THIS TIME IN STABLE CONDITION. PATIENT HAS O2 SET UP AT HOME. DENIES NEEDING ANY ADDITIONAL RESOURCES AT THIS TIME. PATIENT WAS ASSISTED DOWNSTAIRS VIA WHEELCHAIR BY HOSPITAL PERSONNEL. RELINQUISHED CARE FOR PATIENT AT THIS TIME.
== END 2019-10-25 09:20 | disposition home or self-care (01) | DRG 871 ==
LOC: ER 10:21 → EDBD 10:21 → MS 14:00
PROVIDERS: ADMIT Family Medicine; ATTEND Family Medicine
DX: A41.9 Sepsis, unspecified organism (principal); J18.9 Pneumonia, unspecified organism; N17.0 Acute kidney failure with tubular necrosis; J44.0 Chronic obstructive pulmonary disease with (acute) lower respiratory infection; J44.1 Chronic obstructive pulmonary disease with (acute) exacerbation; E87.2 Acidosis; I24.9 Acute ischemic heart disease, unspecified; E03.9 Hypothyroidism, unspecified; E78.5 Hyperlipidemia, unspecified; E87.5 Hyperkalemia; G47.00 Insomnia, unspecified; F32.9 Major depressive disorder, single episode, unspecified; F41.9 Anxiety disorder, unspecified; I34.0 Nonrheumatic mitral (valve) insufficiency; Z87.891 Personal history of nicotine dependence; Z99.81 Dependence on supplemental oxygen; Z90.49 Acquired absence of other specified parts of digestive tract; Z98.891 History of uterine scar from previous surgery; Z88.1 Allergy status to other antibiotic agents; Z88.8 Allergy status to other drugs, medicaments and biological substances; Z79.899 Other long term (current) drug therapy; Z81.1 Family history of alcohol abuse and dependence; Z82.49 Family history of ischemic heart disease and other diseases of the circulatory system; Z82.1 Family history of blindness and visual loss; Z80.6 Family history of leukemia; Z83.6 Family history of other diseases of the respiratory system
CPT/HCPCS: 36415; 36569; 36600; 71045; 71275; 78582; 80048; 80053; 80061; 81002; 82550; 82553; 82803; 83036; 83605; 83735; 83880; 84100; 84132; 84443; 84484; 85025; 85379; 85610; 85730; 86677; 87040; 93005; 93306; 94640; 99285; A9540; C9113; G0378; J1650; J1885; J2920; J3490; J7030; J7050; J7120; J7620; Q9965; A9558

== ENCOUNTER → 2019-11-03 | Outpatient (CLI) | payer BC ==
[~2019-11-03] MED LIST changes: +AMOX1TAB63 PO; +ASPI-655 PO; +BECL10PO INH; +BENZ100C PO; +CITA10TA4 PO; +FLUD0.1T PO; +FLUT16SP; +GUAI600T31 PO; +LEVO88TA5 PO; +MEGE40TA PO; +MONT10TA9 PO; +POTA10TA6 PO; +PRED20TA PO; +TIZA2CAP PO; +[UNRECOGNIZED DRUG - CODE] TD
[2019-11-03 10:33] LABS: BASOPHIL # 0.1 10^3/uL (0.0-0.1); BASOPHIL % 0.5 % (0.0-0.2); EOSINOPHIL # 0.2 10^3/uL (0.0-0.2); EOSINOPHIL % 1.6 % (0.0-5.0); LYMPHOCYTES # 2.9 10^3/uL (1.0-4.8); LYMPHOCYTES % 21.4 % (24.0-44.0); MEAN CORP HGB 29.9 pg (26-34); MONOCYTES # 1.3 10^3/uL (0.3-0.8); MONOCYTES % 9.7 % (5.0-12.0); NEUTROPHILS % 66.4 % (41.0-85.0); RED CELL DISTRIBUTION WIDTH 14.3 % (11.5-14.5)
[2019-11-03 13:05] LABS: BILIRUBIN,URINE NEGATIVE (NEGATIVE); UROBILINOGEN,URINE NORMAL (NEGATIVE)
[2019-11-03 13:07] LABS: APPEARANCE,URINE CLEAR (CLEAR); UA COLOR YELLOW (YELLOW)
[2019-11-03 13:08] LABS: CARBON DIOXIDE 21.4 mmol/L (20.0-32)
== END | disposition home or self-care (01) ==
LOC: LAB 10:12
PROVIDERS: ATTEND Pediatrics
DX: D64.9 Anemia, unspecified (principal); E87.2 Acidosis; R53.83 Other fatigue; R53.81 Other malaise
CPT/HCPCS: 36415; 80053; 81002; 82438; 83735; 84133; 84300; 85025

== ENCOUNTER → 2019-12-09 | Outpatient (CLI) | payer BC ==
[~2019-12-09] MED LIST changes: +FLUT16SP NS
--- NOTE | 2019-12-09 16:03 | DIREP ---
PROCEDURE:US DUPLEX LOWER EXTREMITY ARTERY BILAT COMPARISON:None. 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 Color image and bidirectional spectral Doppler wave form analysis, and peak systolic flow measurements of the common femoral, profunda femoral, superficial femoral, and popliteal arteries were performed. Ankle/brachial indices were measured at the distal posterior tibial artery and anterior tibial/dorsalis pedis. FINDINGS: RIGHT LOWER EXTREMITY: PT CHANDLER: 1.4. AT/DP CHANDLER: 1.2. EXTERNAL ILIAC:Not imaged COMMON FEMORAL:115.1 cm/sTriphasic PROFUNDA FEMORIS:56.1 cm/sTriphasic SUPERFICIAL FEMORAL (prox):107.2 cm/sTriphasic SUPERFICIAL FEMORAL (mid):98.1 cm/sTriphasic SUPERFICIAL FEMORAL (dist):71.7 cm/sTriphasic POPLITEAL (prox):44.8 cm/sBiphasic POPLITEAL (dist):63.6 cm/sTriphasic POSTERIOR TIBIAL (prox):82.7 cm/sTriphasic POSTERIOR TIBIAL (mid):79.0 cm/sTriphasic POSTERIOR TIBIAL (dist):94.4 cm/sTriphasic PERONEAL (prox):74.4 cm/sTriphasic ANTERIOR TIBIAL (prox):66.2 cm/sBiphasic ANTERIOR TIBIAL (mid):62.6 cm/sBiphasic ANTERIOR TIBIAL (dist):51.9 cm/sBiphasic DORSALIS PEDIS:49.0 cm/sBiphasic LEFT LOWER EXTREMITY: PT CHANDLER: 1.3. AT/DP CHANDLER: 1.1. EXTERNAL ILIAC:Not imaged COMMON FEMORAL:127.9 cm/sTriphasic PROFUNDA FEMORIS:64.5 cm/sTriphasic SUPERFICIAL FEMORAL (prox):95.5 cm/sTriphasic SUPERFICIAL FEMORAL (mid):106.5 cm/sTriphasic SUPERFICIAL FEMORAL (dist):81.2 cm/sTriphasic POPLITEAL (prox):71.7 cm/sTriphasic POPLITEAL (dist):57.8 cm/sTriphasic POSTERIOR TIBIAL (prox):62.7 cm/sTriphasic POSTERIOR TIBIAL (mid):73.5 cm/sTriphasic POSTERIOR TIBIAL (dist):63.6 cm/sTriphasic PERONEAL (prox):70.6 cm/sTriphasic ANTERIOR TIBIAL (prox):69.1 cm/sTriphasic ANTERIOR TIBIAL (mid):66.9 cm/sTriphasic ANTERIOR TIBIAL (dist):70.2 cm/sTriphasic DORSALIS PEDIS:62.7 cm/sBiphasic CONCLUSION:No hemodynamically significant narrowing. ABIs greater than 1.4 indicate noncompressible vessels, likely to have significant peripheral vascular disease (PVD). ABIs of 0.91 to 1.3 indicate no significant obstructive disease. ABIs of 0.41 to 0.90 indicate grade I claudication. ABIs less than 0.4 indicate limb-threatening ischemia of grade I or grade II. % stenosisPSV (cm/s)Velocity ratio0-19<150<[id number]>75>300>4 Dictated by: OG Physician on 12/09/2019 at 03:28 PM ac
== END | disposition home or self-care (01) ==
LOC: RAD 12:29
PROVIDERS: ATTEND Internal Medicine Interventional Cardiology
DX: I99.8 Other disorder of circulatory system (principal); I25.10 Atherosclerotic heart disease of native coronary artery without angina pectoris; J44.9 Chronic obstructive pulmonary disease, unspecified; I70.213 Atherosclerosis of native arteries of extremities with intermittent claudication, bilateral legs; I87.2 Venous insufficiency (chronic) (peripheral)
CPT/HCPCS: 93922; 93925

== ENCOUNTER → 2019-12-14 | Outpatient (CLI) | payer BC ==
[2019-12-14 15:17] LABS: BASOPHIL # 0.1 10^3/uL (0.0-0.1); BASOPHIL % 0.8 % (0.0-0.2); EOSINOPHIL # 0.3 10^3/uL (0.0-0.2); EOSINOPHIL % 4.9 % (0.0-5.0); LYMPHOCYTES # 1.59 10^3/uL1 (1.0-4.8); LYMPHOCYTES % 24.5 % (24.0-44.0); MEAN CORP HGB 31.3 pg (26-34); MONOCYTES % 15.8 % (5.0-12.0); NEUTROPHIL # 3.5 10^3/uL (1.8-7.7); NEUTROPHILS % 53.5 % (41.0-85.0); PLATELET COUNT 267 10^3/uL (150-400); RED CELL DISTRIBUTION WIDTH 15.5 % (11.5-14.5)
[2019-12-14 15:41] LABS: CALCIUM 8.3 mg/dL (8.4-10.5); CARBON DIOXIDE 17.9 mmol/L (20.0-32)
--- NOTE | 2019-12-14 16:52 | DIREP ---
PROCEDURE:CHEST 2 VIEWS COMPARISON:[facility], CR, XRAY CHEST SINGLE VW, 11/22/2019, 06:37 AM. INDICATIONS:J44.9 COPD FINDINGS: LUNGS/PLEURA:Trace bilateral pleural effusions with blunting of the lateral costophrenic sulci. Pulmonary hyperinflation suggests underlying COPD. No focal consolidation. Minimal atelectasis or scarring at the lung bases. VASCULATURE:Normal. Unremarkable pulmonary vasculature. CARDIAC:Normal. No cardiac silhouette abnormality or cardiomegaly. MEDIASTINUM:Normal. No visible mass or adenopathy. BONES:Normal. No fracture or visible bony lesion. OTHER:There are surgical clips present in the right upper quadrant compatible with prior cholecystectomy. CONCLUSION: 1. Trace bilateral pleural effusions with blunting of the lateral costophrenic sulci. 2. Pulmonary hyperinflation consistent with underlying COPD. 3. Minimal atelectasis or scar at the lung bases. Dictated by: Trino Lawson MD on 12/14/2019 at 04:49 PM
== END | disposition home or self-care (01) ==
LOC: LAB 15:00
PROVIDERS: ATTEND Nurse Practitioner
DX: R91.8 Other nonspecific abnormal finding of lung field (principal); J44.9 Chronic obstructive pulmonary disease, unspecified; E03.9 Hypothyroidism, unspecified; E78.5 Hyperlipidemia, unspecified; R06.00 Dyspnea, unspecified; R17 Unspecified jaundice
CPT/HCPCS: 36415; 71046; 80053; 80061; 80076; 82024; 83880; 84439; 84443; 84480; 85025; 85379

== ENCOUNTER 2020-01-19 08:18 | Inpatient (IN) | payer BC ==
[~2020-01-19] VITALS: Ht 162.6 cm; Wt 64.4 kg
[2020-01-19] VITALS (8 sets, daily range): BP systolic 93–131; BP diastolic 62–87
[~2020-01-19 08:18] MED LIST changes: -MEGE40TA PO; +MEGE40TA3 PO; +MONT10TA11 PO; -MONT10TA9 PO
--- NOTE | 2020-01-19 08:18 | NUR ---
ARRIVAL PT ARRIVED VIA EMS TO ER 3 C/O SHORTNESS OF BREATH. NO ACUTE DISTRESS NOTED. EDP NOTIFIED OF PT ARRIVAL. SEE EMS REPORT.
[2020-01-19] MEDS ORDERED: ZOFRAN IV ONE (08:30)
[2020-01-19] MEDS ORDERED: NS 1000ML 1,000 ML IV ONE (08:30)
--- NOTE | 2020-01-19 08:35 | ER.PDOC ---
General Chief Complaint: General Complaint Stated Complaint: NAUSEA/VOMITING,SHORTNESS OF BREATH TRAVEL OUT OF US: No Time seen by MD: 08:20 Source: patient Exam Limitations: no limitations History of Present Illness Initial Comments abd pain right sided for 4 days, patient states family member has similar symptoms, pain right sided with watery diarrhea no blood or mucus, vomiting 3 times per day with same diarrhea watery, dull right abd pain. Severity: moderate Modifying Factors: improves with other Associated Symptoms: nausea/vomiting Allergies: Coded Allergies: celecoxib (Unverified Allergy, Severe, SEIZURES, 02/22/15) cephalexin (Unverified Allergy, Mild, N/V, 02/22/15) Home Meds Active Scripts Prednisone (PREDNISONE) 20 Mg Tablet, 20 MG PO DAILY24 for 5 Days, #5 TAB 0 Refills Prov:ANH SCHMIDT MD 11/22/19 Fluticasone Propionate (FLUTICASONE PROPIONATE) 16 Gm Mcallister.susp, 1 SPRAYS NS BID for 30 Days, #1 CONTAINER 0 Refills Prov:ANH SCHMIDT MD 11/22/19 Benzonatate (TESSALON PERLE) 100 Mg Capsule, 200 MG PO TID PRN for COUGH for 30 Days, #90 CAPSULE 0 Refills Prov:ANH SCHMIDT MD 11/22/19 Guaifenesin (MUCINEX) 600 Mg Tablet.er, 600 MG PO BID for 30 Days, #60 TAB 0 Refills Prov:ANH SCHMIDT MD 10/25/19 Aspirin (ASPIRIN EC) 81 Mg Tablet.dr, 81 MG PO DAILY for 30 Days, #30 TAB 0 Refills Prov:ANH SCHMIDT MD 10/25/19 Reported Medications Nicotine (NICOTINE PATCH) 1 Each Patch.dysq, 1 EACH TD DAILY24, PATCH 10/21/19 Citalopram Hydrobromide (CITALOPRAM HBR) 10 Mg Tablet, 1 TAB PO DAILY, #30 TAB 3 Refills 10/21/19 Montelukast Sodium (MONTELUKAST SODIUM) 10 Mg Tablet, 1 TAB PO HS, #30 TAB 5 Refills 10/21/19 Megestrol Acetate (MEGESTROL ACETATE) 40 Mg Tablet, 120 MG PO DAILY24, TAB 10/21/19 Tizanidine Hcl (TIZANIDINE HCL) 2 Mg Capsule, 2 MG PO Q8HR for PAIN, CAPSULE 10/21/19 Levothyroxine Sodium (LEVOTHYROXINE SODIUM) 88 Mcg Tablet, 1 TAB PO DAILY, #30 TAB 5 Refills 10/21/19 Acetaminophen With Codeine (TYLENOL WITH CODEINE #4 TABLET) 1 Each Tablet, 1 EACH PO Q6, TABLET 07/27/19 Lovastatin (LOVASTATIN) 20 Mg Tablet, 20 MG PO HS, TABLET 07/27/19 Alprazolam (ALPRAZOLAM) 0.5 Mg Tablet, 0.5 MG PO Q8, TABLET 07/27/19 Albuterol Sulfate (VENTOLIN HFA) 18 Gm Hfa.aer.ad, 18 GM IH Q6HR 03/01/15 Omeprazole Magnesium (PRILOSEC OTC) 20 Mg Tablet.dr, 20 MG PO DAILY 02/22/15 Past Medical History Medical History: congestive heart failure, COPD Surgical History: cholecystectomy Social History Alcohol Use: none Drug Use: none Review of Systems Constitutional: denies chills, denies fever Respiratory: denies cough Cardiovascular: denies syncope Gastrointestinal: abdominal pain, diarrhea, vomiting Genitourinary: denies pain Musculoskeletal: denies neck pain Skin: denies rash Psychiatric/Neurological: denies headache Physical Exam General Appearance: No Apparent Distress, WD/WN EENT: eyes nml inspection Neck: Non-Tender CVS: tachycardia Gastrointestinal: Soft, Tenderness Neurologic/Psychiatric: speech communication instructor II-XII NML as Tested, No Motor/Sensory Deficits, Alert, Normal Mood/Affect, Oriented x 3 Skin: Normal Color Comments right sided abd pain no guarding or rebound. Results/Orders Results/Orders Orders - COY BARAHONA MD Cbc With Auto Diff (01/19/20 08:29) Comprehensive Metabolic Panel (01/19/20 08:29) Amylase (01/19/20 08:29) Lipase (01/19/20 08:29) Helicobacter Pylori (01/19/20 08:29) PT (01/19/20 08:29) Partial Thromboplastin Time. (01/19/20 08:29) Urinalysis (01/19/20 08:29) 0.9 % Sodium Chloride (Ns 1000ml) (01/19/20 08:30) Ondansetron Hcl/Pf (Zofran) (01/19/20 08:30) Ekg-Routine (01/19/20 08:46) Ct Head Wo Contrast (01/19/20 08:47) Potassium Chloride (Kcl 20meq/100ml) (01/19/20 09:30) Ct Abd/Pelvis Wo Iv Contrast (01/19/20 08:29) Vital Signs Date Time Temp Pulse Resp B/P (MAP) Pulse Ox O2 Delivery O2 Flow Rate FiO2 01/19/20 08:26 97.8 123 17 128/84 (99) 99 Room Air 01/19/20 08:20 97.8 123 17 01/19/20 08:20 99.4 127 17 99 Administered Medications Medications (Trade) Dose Ordered Sig/Krystle Route PRN Reason Start Time Stop Time Status Last Admin Dose Admin Ondansetron HCl (Zofran) 4 mg STAT ONCE IV 01/19/20 08:30 01/19/20 08:31 UNV 01/19/20 08:40 4 MG Potassium Chloride 100 ml @ 50 mls/hr STAT ONCE IV 01/19/20 09:30 01/19/20 11:29 UNV 01/19/20 09:56 50 MLS/HR Sodium Chloride 1,000 ml @ 100 mls/hr OT ONCE IV 01/19/20 08:30 01/19/20 18:29 UNV 01/19/20 08:35 100 MLS/HR Laboratory Tests Test 01/19/20 08:42 White Blood Count 12.6 10^3/uL (4.5-11.0) H Red Blood Count 4.94 10^6/uL (4.00-5.20) Hemoglobin 14.7 g/dL (12.0-15.0) Hematocrit 41.6 % (36.0-46.0) Mean Corpuscular Volume 84.2 fL (78-100) Mean Corpuscular Hemoglobin 29.8 pg (26-34) Mean Corpuscular Hemoglobin Concent 35.3 g/dL (33-36.5) Red Cell Distribution Width 14.6 % (11.5-14.5) H Platelet Count 329 10^3/uL (150-400) Mean Platelet Volume 9.2 fL (7.8-11.0) Neutrophils (%) (Auto) 62.6 % (41.0-85.0) Lymphocytes (%) (Auto) 27.6 % (24.0-44.0) Monocytes (%) (Auto) 8.8 % (5.0-12.0) Neutrophils # (Auto) 7.9 10^3/uL (1.8-7.7) H Lymphocytes # (Auto) 3.47 10^3/uL1 (1.0-4.8) Monocytes # (Auto) 1.1 10^3/uL (0.3-0.8) H Absolute Immature Granulocyte (auto 0.05 10^3 u/L (0-2) Absolute Eosinophils (auto) 0.0 10^3/uL (0.0-0.2) Immature Granulocytes % 0.40 % (0.00-0.50) Eosinophils % 0.3 % (0.0-5.0) Basophils % 0.3 % (0.0-0.2) H Basophils # 0.0 10^3/uL (0.0-0.1) Prothrombin Time 11.2 SEC (9.3-11.3) Prothrombin Time INR (Non-Therap) 1.1 Activated Partial Thromboplast Time 20.5 SEC (24.67-30.72) Sodium Level 140 mmol/L (132-145) Potassium Level 2.2 mmol/L (3.6-5.2) *L Chloride Level 105.0 mmol/L (96-109) Carbon Dioxide Level 20.3 mmol/L (20.0-32) Anion Gap 16.9 Blood Urea Nitrogen 20 mg/dL (7-18) H Creatinine 1.82 mg/dL (0.59-1.40) H Estimated GFR () 34.6 (>/=60) Est GFR (CKD-EPI)(Non-Afr Palestinian) 28.6 (>/=60) BUN/Creatinine Ratio 10.0 Glucose Level 195 mg/dL (70-110) H Calcium Level 8.8 mg/dL (8.4-10.5) Total Bilirubin 0.6 mg/dL (0.2-1.0) Aspartate Amino Transferase (AST) 34 U/L (0-35) Alanine Aminotransferase (ALT) 59 U/L (12-78) Alkaline Phosphatase 160 U/L (50-136) H Total Protein 6.9 g/dL (6.4-8.2) Albumin 3.4 g/dL (3.4-5.0) Globulin 3.5 Amylase Level 145 U/L (25-115) H Lipase 1174 U/L (114-286) H Helicobacter pylori Screen NEGATIVE (NEGATIVE) Progress Progress discussed with dr fried for admission Course Sepsis Screening Results: Posi: POSITIVE Sepsis Qualifier/Stage: SEPSIS RISK Duration or Total Time Spent w: 20 m Vitals & review Data Vital Sign - Last 24 Hours 01/19/20 01/19/20 01/19/20 08:20 08:20 08:26 Temp 99.4 97.8 97.8 Pulse 127 123 123 Resp 17 17 17 B/P (MAP) 128/84 (99) Pulse Ox 99 99 O2 Delivery Room Air Laboratory Tests Test 01/19/20 08:42 White Blood Count 12.6 10^3/uL Red Blood Count 4.94 10^6/uL Hemoglobin 14.7 g/dL Hematocrit 41.6 % Mean Corpuscular Volume 84.2 fL Mean Corpuscular Hemoglobin 29.8 pg Mean Corpuscular Hemoglobin Concent 35.3 g/dL Red Cell Distribution Width 14.6 % Platelet Count 329 10^3/uL Mean Platelet Volume 9.2 fL Neutrophils (%) (Auto) 62.6 % Lymphocytes (%) (Auto) 27.6 % Monocytes (%) (Auto) 8.8 % Neutrophils # (Auto) 7.9 10^3/uL Lymphocytes # (Auto) 3.47 10^3/uL1 Monocytes # (Auto) 1.1 10^3/uL Absolute Immature Granulocyte (auto 0.05 10^3 u/L Absolute Eosinophils (auto) 0.0 10^3/uL Immature Granulocytes % 0.40 % Eosinophils % 0.3 % Basophils % 0.3 % Basophils # 0.0 10^3/uL Prothrombin Time 11.2 SEC Prothrombin Time INR (Non-Therap) 1.1 Activated Partial Thromboplast Time 20.5 SEC Sodium Level 140 mmol/L Potassium Level 2.2 mmol/L Chloride Level 105.0 mmol/L Carbon Dioxide Level 20.3 mmol/L Anion Gap 16.9 Blood Urea Nitrogen 20 mg/dL Creatinine 1.82 mg/dL Estimated GFR () 34.6 Est GFR (CKD-EPI)(Non-Afr Palestinian) 28.6 BUN/Creatinine Ratio 10.0 Glucose Level 195 mg/dL Calcium Level 8.8 mg/dL Total Bilirubin 0.6 mg/dL Aspartate Amino Transf (AST/SGOT) 34 U/L Alanine Aminotransferase (ALT/SGPT) 59 U/L Alkaline Phosphatase 160 U/L Total Protein 6.9 g/dL Albumin 3.4 g/dL Globulin 3.5 Amylase Level 145 U/L Lipase 1174 U/L Helicobacter pylori Screen NEGATIVE Sepsis Infection Criteria Pres: None LEVEL 1 SEPSIS INFECTION CRITE: ABX Therapy, Urinary Tract Infection, None/Not assessed LEVEL 2-SIRS (LIST ALL THAT AP: [id number] Cardiovascular Evidence: Not Assessed or None Hematologic Evidence: None/Not assessed Hepatic Evidence: None/Not assessed Metabolic Evidence: None/Not assessed Neurological Evidence: None/Not assessed Respiratory Evidence: O2 SAT<90room air Renal Evidence: None/Not assessed O2 Sat by Pulse Oximetry: 99 Departure Time of Disposition: 10:13 Disposition: 09 ADMITTED INPATIENT Impression: Primary Impression: Pancreatitis Additional Impressions: Hypokalemia Sinusitis Condition: Stable Referrals: ARMIDA GREGG MD (PCP) PRIMARY CARE PROVIDER Duration or Time Spent with Pa: 20 Problem Qualifiers COY BARAHONA MD Jan 19, 2020 08:35
[2020-01-19 08:47] LABS: BASOPHIL % 0.3 % (0.0-0.2); EOSINOPHIL % 0.3 % (0.0-5.0); LYMPHOCYTES # 3.47 10^3/uL1 (1.0-4.8); LYMPHOCYTES % 27.6 % (24.0-44.0); MEAN CORP HGB 29.8 pg (26-34); MONOCYTES # 1.1 10^3/uL (0.3-0.8); MONOCYTES % 8.8 % (5.0-12.0); NEUTROPHIL # 7.9 10^3/uL (1.8-7.7); NEUTROPHILS % 62.6 % (41.0-85.0); PLATELET COUNT 329 10^3/uL (150-400); RED CELL DISTRIBUTION WIDTH 14.6 % (11.5-14.5)
[2020-01-19 09:03] LABS: CALCIUM 8.8 mg/dL (8.4-10.5); CARBON DIOXIDE 20.3 mmol/L (20.0-32)
--- NOTE | 2020-01-19 09:10 | PCM.EKG ---
[facility] Test Date: 2020-01-19 Test Time: 09:03:45 Pat Name: EDIE MACEDO Department: Room: Gender: F Communication Electronic Technician: RT : 1960 Requested By: MOY VEGAS Order Number: [id number] Reading MD: Myo Vegas Measurements Intervals [place] Rate: 118 P: 82 NJ: 121 QRS: 69 QRSD: 84 T: 243 QT: 325 QTc: 456 Interpretive Statements Sinus tachycardia Repol abnrm Compared to ECG 11/19/2019 09:48:23 Early repolarization now present Sinus rhythm Electronically Signed On 01-19-2020 9:17:43 CDT by Moy Vegas Please click the below link to view image of tracing.
[2020-01-19] MEDS ORDERED: KCL 20MEQ/100ML 100 ML IV ONE (09:30)
--- NOTE | 2020-01-19 09:41 | DIREP ---
PROCEDURE:CT HEAD OR BRAIN W/O CONTRAST COMPARISON:None. INDICATIONS:headache TECHNIQUE:CT images were created without intravenous contrast. FINDINGS: VENTRICLES:The ventricles are normal in size and configuration. CEREBRUM:Normal cerebral morphology with appropriate mclean white matter differentiation. CEREBELLUM:Negative. BRAINSTEM:Negative. BASAL CISTERNS:Negative. HEMORRHAGE:No MASS LESION:No ACUTE INFARCT:No SKULL:Normal. SINUSES:Mild mucosal thickening in the left sphenoid sinus. OTHER:None CONCLUSION: 1. No acute abnormalities. 2. Mild left sphenoid sinusitis. Dictated by: Hayden Staton M.D. on 01/19/2020 at 09:38 AM
--- NOTE | 2020-01-19 09:49 | DIREP ---
PROCEDURE:CT ABDOMEN/PELVIS W/O CONTRAST COMPARISON:[facility], CT, CT ABD/PELVIS W/O, 08/07/2015, 04:54 PM. INDICATIONS:abd pain right side with vomiting and diarrhea TECHNIQUE:Axial images were created through the abdomen and pelvis without intravenous contrast material. No oral contrast was administered. Sagittal and coronal reconstructions were performed from source images. FINDINGS: LUNG BASES:Normal. No visible pulmonary or pleural disease. LIVER:Diffuse decreased attenuation. No masses. BILIARY:The gallbladder is surgically absent. There is no biliary ductal dilatation. PANCREAS:Normal. No lesion, fluid collection, ductal dilatation, or atrophy. SPLEEN:Normal. No enlargement or focal lesion. ADRENALS:Normal. No mass or enlargement. URINARY TRACT:The left kidney is very small and contains multiple dystrophic calcifications. There is a small calculus in the upper pole of the right kidney. There are no other urinary calculi. There are no focal lesions or hydronephrosis. AORTA/VASCULAR:There are aortic atherosclerotic calcifications present. No aneurysm. RETROPERITONEUM:Normal. No mass or adenopathy. BOWEL/MESENTERY:The appendix is visualized and appears normal. There is no intestinal obstruction, free fluid, free air or mesenteric inflammatory changes. ABDOMINAL WALL:Normal. No mass or hernia. PELVIC ORGANS:Normal. No visible mass. Pelvic organs appropriate for patient age. BONES:Normal for age. No bony lesion or acute fracture. OTHER:Negative. CONCLUSION: 1. No acute abdomen/pelvis abnormalities. 2. Small left kidney with dystrophic calcifications. 3. Small nonobstructing right renal calculus. 4. Fatty liver. 5. Prior cholecystectomy. Dictated by: Hayden Staton M.D. on 01/19/2020 at 09:41 AM
--- NOTE | 2020-01-19 10:04 | NUR ---
potassium POTASSIUM RATE AT 30ML/HR AT THIS TIME DUE TO PT C/O BURNING.
--- NOTE | 2020-01-19 10:12 | NUR ---
RADHA DOCTOR [place] ON THE PHONE WITH DOCTOR RADHA DISCUSSING ADMISSION.
[2020-01-19] MEDS ORDERED: VIBRAMYCIN PO STA (10:14)
--- NOTE | 2020-01-19 11:41 | NUR ---
report PHONE REPORT TO ADDIE ROBERTSON AT THIS TIME.
--- NOTE | 2020-01-19 12:00 | NUR ---
ARRIVAL Pt ARIVED TO THE UNIT IN ROOM 311 FROM ER, IN WC ACCOMPANIED BY HER DAUGHTER AND TELEPHONE SWITCHBOARD OPERATOR, REPORT RECEIVED FROM ER NURSE EDWARD REAL IVA TELEPHONE, OFFERED FLUIDS SNACKS, REENFORCED Pt TO USE CALL DE LA [place], Pt VERBALIS UNDERSTANDING. DAUGHTER IN ROOM AT THIS TIME.
[2020-01-19] MEDS ORDERED: BENZ100C PO (12:32)
[2020-01-19] MEDS ORDERED: ALPR1TAB6 PO (12:32)
[2020-01-19] MEDS ORDERED: VIBRAMYCIN ONE (12:35)
[2020-01-19] MEDS ORDERED: TYLENOL PO PRN (13:30)
--- NOTE | 2020-01-19 14:03 | HPH ---
ADMIT DATE: 01/19/2020 TIME: 1:06 p.m. HISTORY OF PRESENT ILLNESS: The patient is a 59-year-old female who presents with chief complaint of shortness of breath. She states she has felt short of breath all weekend, which comprises approximately the last 4 days. She had missed onset of fevers, chills, nausea, vomiting, cough, which is chronic and nonproductive, abdominal pain, diarrhea. Denies wheeze or myalgia. She denies peripheral edema or chest pain. She presents for further evaluation. PAST SURGICAL HISTORY: Cholecystectomy, , right knee arthroscopy, bilateral cataract surgery. FAMILY HISTORY: Cancer, coronary artery disease. SOCIAL HISTORY: Tobacco: Former smoker. Alcohol denies. Caffeine: Cola. Drugs: Past marijuana use. Denies any other drug use, past or present. ALLERGIES: KEFLEX, CELEBREX, AUGMENTIN. CODE STATUS: Full. PERTINENT LABS AND VITALS: Blood pressure 111/66, pulse 113, respirations 20, temperature 97.8 degrees, 98% on room air. Potassium is 2.2, creatinine was 1.82. Alkaline phosphatase 160. White blood cell count is 12.6. PHYSICAL EXAMINATION: GENERAL: The patient is an obese female who is alert. She is in no acute distress. She is mildly tachypneic, but does not appear overtly dyspneic. HEENT: Atraumatic, normocephalic. EYES: Pupils equally round, reactive to light and accommodation. Extraocular motor is intact. Cranial nerves 2-12 are intact. NECK: Shows no JVD, thyromegaly or cervical lymphadenopathy. HEART: Irregular rate, regular rhythm, no murmurs, gallops or rubs. LUNGS: Distant breath sounds bilaterally without wheeze or rhonchi. No rhonchi or rales. She does have scant bilateral wheeze. ABDOMEN: Normal bowel sounds x 4 without rebound or guarding. There is questionable abdominal tenderness present. EXTREMITIES: The patient has 2/4 pulses in all 4 extremities without clubbing, cyanosis or edema. She has 5/5 bilateral lower extremity strength. There is no calf tenderness present bilaterally. Homans sign negative bilaterally as well. ASSESSMENT AND PLAN: 1. Chronic obstructive pulmonary disease exacerbation. The patient is O2 dependent 3 liters, DuoNeb q.4 hours plus Levaquin 500 mg IV daily plus Solu-Medrol 60 mg IV q.8 hours plus guaifenesin 600 mg p.o. b.i.d. plus Singulair 10 mg p.o. daily. 2. Abdominal pain, query pancreatitis. Lipase is elevated; however, there are no radiographic findings of pancreatitis. We will keep the patient n.p.o., IV normal saline 100 mL per hour. We will check fasting lipid panel in the morning. We will monitor lipase levels intermittently. 3. Diarrhea. We will check stool C. diff, ova and parasite, WBC and culture. IV normal saline 100 mL per hour. 4. Acute renal insufficiency. IV normal saline 100 mL per hour. We will monitor creatinine, intermittently with CMP. 5. Hypokalemia. Monitor potassium levels intermittently and supplement as necessary. We will monitor the patient on telemetry. 6. Anorexia. 7. Seasonal allergies. Flonase 50 mcg per spray 1 puff in each naris b.i.d. plus Singulair 10 mg p.o. daily. 8. History of gastrointestinal bleed. 9. Insomnia. 10. Anxiety. Xanax 1 mg p.o. b.i.d. 11. Depression, Celebrex 10 mg p.o. daily. 12. Hypothyroidism, Synthroid 88 mcg p.o. daily. 13. Coronary artery disease, nonobstructive. Aspirin 81 mg p.o. daily plus lovastatin 20 mg p.o. at bedtime. 14. Gastroesophageal reflux disease. Protonix 40 mg p.o. daily. 15. Hyperlipidemia, lovastatin 20 mg p.o. at bedtime. 16. Obesity. The patient will be counseled regarding lifestyle modification. 17. Hepatic steatosis. 18. Nephrolithiasis, asymptomatic. 19. Atrophic left kidney. 20. History of cerebrovascular accident. Aspirin 81 mg p.o. daily plus lovastatin 20 mg p.o. at bedtime. 21. Chronic pain. 22. Muscle spasm. 23. DVT prophylaxis, bilateral SCD. DISPOSITION: Anticipate discharge in approximately 72 hours' time once her creatinine normalizes and her lipase normalizes as well. ROSI GARCIA DO DR: POLINA/no JOB# [id number]
[2020-01-19] MEDS: ZANAFLEX PO SCH ×2 (14:37→23:34)
[2020-01-19] MEDS: MUCINEX PO SCH ×3 (14:37→21:04)
[2020-01-19] MEDS: KLOR-CON 10 PO SCH ×4 (14:37→21:04)
[2020-01-19] MEDS: SOLU-MEDROL IV SCH ×2 (14:38→23:34)
[2020-01-19] MEDS: FLONASE NS SCH ×2 (14:38→21:00)
[2020-01-19] MEDS: NS 1000ML 1,000 ML IV SCH ×2 (16:02→23:36)
[2020-01-19] MEDS ORDERED: BECL10PO INH (16:10)
[2020-01-19] MEDS ORDERED: FLUD0.1T PO (16:10)
[2020-01-19] MEDS ORDERED: ROFL500T PO (16:10)
[2020-01-19] MEDS: DUO 0.5-3(2.5) MG/3 ML IH SCH ×2 (16:34→20:30)
--- NOTE | 2020-01-19 17:04 | NUR ---
C/O OF SHORE IN MOUTH FOR 1 WEEK REQUESTED NYSTATIN, AND MED FOR DIARRHEA NOTIFIED DR GARCIA RECEIVED AN ORDER FOR NYASTATIN SWISH AND SWALLOW 10 ML PO QID, CDIFF TEST TO COLLECT STOLE SAMPLE, INFORMED PT SHE VERBALIZED UNDERSTATING.
[2020-01-19] MEDS ORDERED: MYCOSTATIN ONE (17:17)
[2020-01-19] MEDS: MYCOSTATIN PO SCH (17:21)
[2020-01-19] MEDS: NON-FORMULARY MEDICATION 1 EA EA PO SCH (17:23)
[2020-01-19] MEDS: TYLENOL #4 PO SCH ×2 (17:27→23:35)
--- NOTE | 2020-01-19 19:10 | NUR ---
Pharmacy called with confirmation from Dr Sanchez that patient is to get KCL PO Q1 hour Xs 4.
[2020-01-19] MEDS: LIPITOR PO SCH (21:04)
[2020-01-19] MEDS: SINGULAIR PO SCH (21:04)
[2020-01-19] MEDS: XANAX PO SCH (21:04)
[2020-01-19] MEDS: TESSALON PERLE PO PRN (23:34)
[2020-01-20] MEDS: DUO 0.5-3(2.5) MG/3 ML IH SCH ×6 (00:16→20:06)
[2020-01-20 04:26] VITALS: BP 105/62
[2020-01-20 05:32] LABS: CALCIUM 7.9 mg/dL (8.4-10.5)
[2020-01-20] MEDS: SYNTHROID PO SCH (05:54)
[2020-01-20] MEDS: TYLENOL #4 PO SCH ×3 (05:54→19:04)
[2020-01-20 07:40] VITALS: BP 105/55
[2020-01-20] MEDS: ZANAFLEX PO SCH ×3 (07:52→21:20)
[2020-01-20] MEDS: SOLU-MEDROL IV SCH ×3 (07:52→21:20)
[2020-01-20] MEDS: TESSALON PERLE PO PRN (07:52)
[2020-01-20] MEDS: NON-FORMULARY MEDICATION 1 EA EA IH SCH (08:39)
[2020-01-20] MEDS ORDERED: LANOLIN HYDROUS TP ONE (08:45)
[2020-01-20] MEDS: KLOR-CON 10 PO SCH ×2 (08:57→14:08)
[2020-01-20] MEDS: XANAX PO SCH ×2 (08:57→21:20)
[2020-01-20] MEDS: CeleXA PO SCH (08:58)
[2020-01-20] MEDS: NS 1000ML 1,000 ML IV SCH ×2 (08:58→19:04)
[2020-01-20] MEDS: LEVAQUIN PO SCH (08:58)
[2020-01-20] MEDS: MYCOSTATIN PO SCH ×4 (08:58→21:19)
[2020-01-20] MEDS: MUCINEX PO SCH ×2 (08:58→21:20)
[2020-01-20] MEDS: ASPIRIN EC PO SCH (08:58)
[2020-01-20] MEDS: PROTONIX PO SCH (08:58)
--- NOTE | 2020-01-20 09:03 | PNH ---
DATE: 01/20/2020 SUBJECTIVE: The patient complains of mild right flank pain overnight. She denies fevers or chills. She indicates that she felt nauseated; however, she denies vomiting. She admits to occasional cough, no wheeze. The patient currently rates her respiratory status as a 9/10, if 10 is her baseline. I have explained to the patient her current medical condition and plan of care, and I have answered all of her questions. OBJECTIVE: GENERAL: The patient is moderately tremulous. She is in no acute distress. She is neither dyspneic nor tachypneic. CARDIOVASCULAR: Regular rate and rhythm without murmurs, gallops or rubs. LUNGS: Demonstrate improved aeration compared with my examination on 01/19/2020 without wheezes, rhonchi or rales. ABDOMEN: Normal bowel sounds x 4 without rebound, guarding or tenderness. EXTREMITIES: The patient has 2/4 pulses in all 4 extremities without clubbing, cyanosis or edema. LABORATORY DATA: Potassium is 3.4, creatinine is 1.97. Lipase 689. ASSESSMENT AND PLAN: 1. Chronic obstructive pulmonary disease exacerbation. The patient is O2 dependent on 3 liters. DuoNeb q. 4 hours plus Levaquin 500 mg IV daily plus Solu-Medrol 60 mg IV q. 8 hours plus guaifenesin 600 mg p.o. b.i.d. plus Singulair 10 mg p.o. daily. 2. Abdominal pain, query pancreatitis. Lipase is elevated; however, there are no radiographic findings of pancreatitis. We will continue keeping the patient n.p.o. IV normal saline at 100 mL per hour. Fasting lipid panel within normal limits. We will monitor lipase levels intermittently. 3. Diarrhea. Currently pending are the following; stool Clostridium difficile, ova and parasite, WBC and culture. IV normal saline at 100 mL per hour. 4. Acute renal insufficiency. IV normal saline at 100 mL per hour. We will monitor creatinine intermittently. Bilateral renal ultrasound pending. 5. Hypokalemia. We will monitor potassium levels intermittently and supplement as necessary. 6. Anorexia. 7. Seasonal allergies. Flonase 50 mcg per spray, 1 puff in each naris b.i.d. plus Singulair 10 mg p.o. daily. 8. History of gastrointestinal bleed. 9. Insomnia. 10. Anxiety. Xanax 1 mg p.o. b.i.d. 11. Depression. Celebrex 10 mg p.o. daily. 12. Hypothyroidism. Synthroid 88 mcg p.o. daily. 13. Coronary artery disease, nonobstructive. Aspirin 81 mg p.o. daily plus lovastatin 20 mg p.o. at bedtime. 14. Gastroesophageal reflux disease. Protonix 40 mg p.o. daily. 15. Hyperlipidemia. Lovastatin 20 mg p.o. at bedtime. 16. Obesity. 17. Hepatic steatosis. 18. Nephrolithiasis, asymptomatic. 19. Atrophic left kidney. 20. History of cerebrovascular accident. Aspirin 81 mg p.o. daily plus lovastatin 20 mg p.o. at bedtime. 21. Chronic pain. 22. Muscle spasm. 23. Deep venous thrombosis prophylaxis. Bilateral serial compression device. DISPOSITION: The patient will be a candidate for discharge once her lipase normalizes, which I anticipate will be within 48 hours. ROSI GARCIA DO DR: POLINA/no JOB# [id number]
[2020-01-20] MEDS: FLONASE NS SCH ×2 (09:51→21:23)
--- NOTE | 2020-01-20 10:45 | NUR ---
DISCHARGE PLAN CM VISITED WITH GAURAV REGARDING D/C PLAN AND GOAL. PATIENT LIVES AT HOME WITH HER SPOUSE. HER DAUGHTER HELPS HER MOST OF THE TIME. SHE STATES SHE IS IND OF ADLS BUT HAS TO STOP ACTIVITIES D/T RESPIRATORY DIFFICULTIES. SHE DOES HAVE A WALKER, CANE, SC, TOILER RISER, AND NEBULIZER IN THE HOME. SHE ALSO HAS AN 02 CONCENTRATOR AND PORTABILITY THROUGH [employer], SHE WEARS HER 02 AT 3/L 03/06. HER PCP IS DR SMITH. SHE IS FINANCIALLY ABLE TO PAY FOR MEDICATIONS. SHE CURRENTLY HAS [facility] IN PLACE. DISCHARGE GOAL IS FOR PT TO D/C HOME WITH SPOUSE AND [facility] TO FOLLOW. CM WILL CONTINUE TO FOLLOW NEEDS OF THE PT.
[2020-01-20 11:26] VITALS: BP 99/50
[2020-01-20] MEDS ORDERED: ZOFRAN IV PRN (15:00)
--- NOTE | 2020-01-20 15:10 | DIREP ---
PROCEDURE:US KIDNEYS-BILAT COMPARISON:[facility], CT, CT ABD/PELVIS W/O, 01/19/2020, 09:29 AM. [facility], [place], US KIDNEYS-BILAT, 08/04/2019, 03:03 PM. [facility], CT, CT CHEST W/CONTRAST, 07/29/2019, 09:05 AM. [facility], US, US ABDOMEN LIMITED(SINGLE ORGAN-QUAD), 07/28/2019, 08:29 AM. INDICATIONS:arf, atrophic non func Lt renal TECHNIQUE:Ultrasound examination was performed of the kidneys and bladder. FINDINGS: RIGHT KIDNEY:11.8 x 5.0 x 5.2 cm. Cortex: 1.6 cm LEFT KIDNEY: 6.4 x 3.6 x 3.3 cm. Cortex: 0.7 cm BLADDER:6.9 x 6.1 x 7.4 cm. Volume 215.3 ml RIGHT KIDNEY: There is no hydronephrosis. Nonobstructing stones are identified. LEFT KIDNEY: Atrophic. There is no hydronephrosis. Nonobstructing stones are identified. BLADDER:Prevoid bladder 215 cc. Patient would not void bladder. OTHER:Hepatic steatosis incidentally noted. CONCLUSION:Shadowing stones in the right kidney. Atrophic left kidney with shadowing stones. Dictated by: LUIS MIGUELA Physician on 01/20/2020 at 02:22 PM Read in [place] ac
[2020-01-20] MEDS: NON-FORMULARY MEDICATION 1 EA EA PO SCH (17:30)
[2020-01-20 17:50] VITALS: BP 95/50
[2020-01-20 19:00] VITALS: BP 100/58
[2020-01-20] MEDS: LIPITOR PO SCH (21:19)
[2020-01-20] MEDS: SINGULAIR PO SCH (21:20)
[2020-01-21] MEDS: TYLENOL #4 PO SCH ×4 (00:01→18:01)
[2020-01-21 00:34] VITALS: BP 120/44
[2020-01-21] MEDS: DUO 0.5-3(2.5) MG/3 ML IH SCH ×6 (00:46→20:18)
--- NOTE | 2020-01-21 00:49 | NUR ---
Pt up to BS with no results. Pt removed telemetry and refused to wear
[2020-01-21] MEDS: NS 1000ML 1,000 ML IV SCH ×2 (05:23→17:55)
[2020-01-21] MEDS: SOLU-MEDROL IV SCH ×3 (05:23→21:17)
[2020-01-21 05:25] VITALS: BP 106/48
[2020-01-21] MEDS: ZANAFLEX PO SCH ×3 (05:27→21:17)
[2020-01-21] MEDS: SYNTHROID PO SCH (05:29)
[2020-01-21 07:04] VITALS: BP 97/51
--- NOTE | 2020-01-21 09:19 | PNH ---
DATE: 01/21/2020 TIME: 8:16 a.m. SUBJECTIVE: The patient complains about not being able to eat. In fact the nursing staff has notified me that the patient is noncooperative with lab draws at this time. The patient denies fevers, chills, nausea, vomiting, wheeze, abdominal pain. She indicates that she has occasional nonproductive cough. She currently rates her respiratory status is 6/10, if 10 is her baseline. I have explained to the patient, her current medical condition and plan of care and I have answered all her questions. OBJECTIVE: GENERAL: The patient is moderately tremulous. She is in no acute distress. She is neither dyspneic nor tachypneic. CARDIOVASCULAR: Irregular rate, regular rhythm, no murmurs, gallops or rubs. LUNGS: Distant breath sounds bilaterally without wheezes, rhonchi or rales. ABDOMEN: Normal bowel sounds x 4 without rebound, guarding or tenderness. EXTREMITIES: The patient has 2/4 pulses in all 4 extremities without clubbing, cyanosis or edema. VITAL SIGNS: Heart rate 120 beats per minute, blood pressure 97/51. The patient is saturating 94% on 2 liters. ASSESSMENT AND PLAN: 1. Chronic obstructive pulmonary disease exacerbation. The patient is O2 dependent 3 liters, DuoNeb q. 4 hours plus Levaquin 500 mg IV daily plus Solu-Medrol 60 mg IV q. 8 hours plus guaifenesin 600 mg p.o. b.i.d., plus Singulair 10 mg p.o. daily. 2. Noncompliance as witnessed by the patient refusing lab draws. The patient will be counseled regarding medical compliance. 3. Abdominal pain, query pancreatitis. Lipase is elevated; however, there are no radiographic findings of pancreatitis. We will continue keeping the patient n.p.o., IV normal saline 100 mL per hour. Fasting lipid panel is within normal limits. We will monitor lipase levels intermittently. 4. Diarrhea. IV normal saline 100 mL per hour. 5. Acute renal insufficiency. IV normal saline 100 mL per hour. We will monitor creatinine, intermittently. Bilateral renal ultrasound. Overall, unremarkable. 6. Hypokalemia. We will monitor potassium levels intermittently and supplement as necessary. 7. Anorexia. 8. Seasonal allergies, Flonase 50 mcg per spray, 1 puff in each naris b.i.d. plus Singulair 10 mg p.o. daily. 9. History of gastrointestinal bleed. 10. Insomnia. 11. Anxiety. Xanax 1 mg p.o. b.i.d. 12. Depression. Celexa 10 mg p.o. daily. 13. Hypothyroidism. Synthroid 88 mcg p.o. daily. 14. Coronary artery disease, nonobstructive. Aspirin 81 mg p.o. daily plus lovastatin 20 mg p.o. at bedtime. 15. Gastroesophageal reflux disease. Protonix 40 mg p.o. daily. 16. Hyperlipidemia, lovastatin 20 mg p.o. at bedtime. 17. Obesity. 18. Hepatic steatosis. 19. Nephrolithiasis, asymptomatic. 20. Atrophic left kidney. 21. History of cerebrovascular accident. Aspirin 81 mg p.o. daily plus lovastatin 20 mg p.o. at bedtime. 22. Chronic pain. 23. Muscle spasm. 24. Deep venous thrombosis prophylaxis, bilateral SCD. DISPOSITION: The patient will be a candidate for discharge once her creatinine normalizes and her lipase normalizes. However, I am uncertain as to when this may be as the patient is noncompliant with lab draws on this day. ROSI GARCIA DO DR: POLINA/no JOB# [id number]
[2020-01-21] MEDS: CeleXA PO SCH (10:06)
[2020-01-21] MEDS: MYCOSTATIN PO SCH ×4 (10:06→20:39)
[2020-01-21] MEDS: ASPIRIN EC PO SCH (10:07)
[2020-01-21] MEDS: XANAX PO SCH ×2 (10:07→20:40)
[2020-01-21] MEDS: MUCINEX PO SCH ×2 (10:07→20:39)
[2020-01-21] MEDS: PROTONIX PO SCH (10:07)
[2020-01-21] MEDS: LEVAQUIN PO SCH (10:07)
[2020-01-21] MEDS: FLONASE NS SCH ×2 (10:08→20:38)
[2020-01-21 10:09] LABS: CALCIUM 8.4 mg/dL (8.4-10.5); CARBON DIOXIDE 14.2 mmol/L (20.0-32)
[2020-01-21 10:40] LABS: BILIRUBIN,URINE NEGATIVE (NEGATIVE); UROBILINOGEN,URINE NORMAL (NEGATIVE)
[2020-01-21 10:50] LABS: APPEARANCE,URINE SLIGHTLY HAZY (CLEAR); UA COLOR YELLOW (YELLOW)
[2020-01-21 11:20] VITALS: BP 103/61
[2020-01-21] MEDS: NON-FORMULARY MEDICATION 1 EA EA IH SCH (13:00)
--- NOTE | 2020-01-21 14:18 | NUR ---
HALLUCINATIONS PT HAVE HALLUCINATIONS AT THIS TIME. PT SEE'S WHITE DOG RUNNING AROUND ROOM AND IN HALLWAY. DR. GARCIA NOTIFIED OF CHANGE. REPORTED UA RESULTS. MESSAGE LEFT. AWAITING CALL BACK.
[2020-01-21 17:45] VITALS: BP 105/56
[2020-01-21] MEDS: NON-FORMULARY MEDICATION 1 EA EA PO SCH (18:11)
[2020-01-21 19:23] VITALS: BP 109/63
[2020-01-21] MEDS: LIPITOR PO SCH (20:39)
[2020-01-21] MEDS: SINGULAIR PO SCH (20:40)
[2020-01-22 01:10] VITALS: BP 105/64
[2020-01-22] MEDS: TYLENOL #4 PO SCH ×2 (01:10→06:37)
[2020-01-22] MEDS: TESSALON PERLE PO PRN (03:24)
[2020-01-22 03:50] VITALS: BP 118/65
[2020-01-22] MEDS: NS 1000ML 1,000 ML IV SCH (03:56)
[2020-01-22] MEDS: DUO 0.5-3(2.5) MG/3 ML IH SCH ×2 (04:24→09:00)
[2020-01-22 05:03] LABS: CALCIUM 8.4 mg/dL (8.4-10.5); CARBON DIOXIDE 15.1 mmol/L (20.0-32)
[2020-01-22] MEDS: SOLU-MEDROL IV SCH (06:00)
[2020-01-22] MEDS: ZANAFLEX PO SCH (06:37)
[2020-01-22] MEDS: SYNTHROID PO SCH (06:38)
[2020-01-22] MEDS ORDERED: NYST1000 PO (08:39)
[2020-01-22] MEDS ORDERED: LEVO500T51 PO (08:39)
--- NOTE | 2020-01-22 08:41 | PRM.DC ---
DC Summary Final Dx: Problems Medical Problems: (1) Abdominal pain, generalized Onset: 05/10/2015 Status: Acute ICD Codes: R10.84 - Abdominal pain, generalized SNOMED: 573254510 Responsible Provider: KAMRON CYR MD Problem Recorded: May 10, 2015 13:10 Last Edited By: Kamron Cyr MD on May 10, 2015 13:10 (2) Abdominal pain, generalized Status: Acute ICD Codes: R10.84 - Generalized abdominal pain SNOMED: 200893816 Problem Recorded: May 10, 2015 20:56 (3) Acute pyelonephritis Status: Acute ICD Codes: N10 - Acute tubulo-interstitial nephritis SNOMED: 05236074 Problem Recorded: Aug 07, 2015 18:37 (4) Chest pain Status: Acute ICD Codes: R07.9 - Chest pain, unspecified SNOMED: 32377801 Problem Recorded: Feb 24, 2015 21:43 (5) Chest pain Status: Acute ICD Codes: R07.9 - Chest pain, unspecified SNOMED: 24920380 Problem Recorded: Mar 01, 2015 21:42 Last Edited By: Melina Thompson D.O., ER on Oct 21, 2019 13:35 (6) Chronic obstruct airways disease Status: Acute ICD Codes: J44.9 - Chronic obstructive pulmonary disease, unspecified SNOMED: 81547800 Problem Recorded: Feb 24, 2015 21:43 Last Edited By: Automated Background Job on March 31, 2018 16:17 (7) Contusion of left knee Status: Acute ICD Codes: S80.02XA - Contusion of left knee, initial encounter SNOMED: 93423566 Responsible Provider: Carl Gomes MD Problem Recorded: May 26, 2016 21:42 Last Edited By: Carl Gomes MD on May 26, 2016 21:41 (8) Contusion of left lower arm Status: Acute ICD Codes: S50.12XA - Contusion of left forearm, initial encounter SNOMED: 30358694 Responsible Provider: Carl Gomes MD Problem Recorded: May 26, 2016 21:42 Last Edited By: Carl Gomes MD on May 26, 2016 21:41 (9) Contusion of leg, left Status: Acute ICD Codes: S80.12XA - Contusion of left lower leg, initial encounter SNOMED: 62199173 Responsible Provider: Carl Gomes MD - ED Problem Recorded: Feb 11, 2017 10:00 Last Edited By: Carl Gomes MD - ED on Feb 11, 2017 10:00 (10) Contusion of right lower arm Status: Acute ICD Codes: S50.11XA - Contusion of right forearm, initial encounter SNOMED: 14830622 Responsible Provider: Carl Gomes MD Problem Recorded: May 26, 2016 21:42 Last Edited By: Carl Gomes MD on May 26, 2016 21:41 (11) Cough productive of purulent sputum Status: Acute ICD Codes: R05 - Cough SNOMED: 96566429 Responsible Provider: Mohamud Savage MD Problem Recorded: Nov 17, 2015 19:29 Last Edited By: Otis Dao MD - ED on April 04, 2017 20:48 (12) Hemorrhage of gastrointestinal tract Onset: 05/26/2015 Status: Acute ICD Codes: K92.2 - Hemorrhage of gastrointestinal tract SNOMED: 56369113 Responsible Provider: KAMRON CYR MD Problem Recorded: May 26, 2015 10:08 Last Edited By: Kamron Cyr MD on May 26, 2015 10:08 (13) Hypokalemia Status: Acute ICD Codes: E87.6 - Hypokalemia SNOMED: 74065677 Responsible Provider: Hany Salvador MBA, MD Problem Recorded: Feb 22, 2015 21:05 Last Edited By: Moy Vegas MD - Er on Jan 19, 2020 11:16 (14) Otitis media Status: Acute ICD Codes: H66.90 - Otitis media, unspecified, unspecified ear SNOMED: 74024806 Responsible Provider: Mohamud Savage MD Problem Recorded: Nov 17, 2015 19:29 Last Edited By: Mohamud Savage MD on Nov 17, 2015 19:29 (15) Pancreatitis Status: Acute ICD Codes: K85.90 - Acute pancreatitis without necrosis or infection, unspecified SNOMED: 69002530 Responsible Provider: Moy Vegas MD - ER Problem Recorded: Jan 19, 2020 10:14 Last Edited By: Moy Vegas MD - Er on Jan 19, 2020 11:16 (16) Sinusitis Status: Acute ICD Codes: J32.9 - Chronic sinusitis, unspecified SNOMED: 29856435 Responsible Provider: Moy Vegas MD - ER Problem Recorded: Jan 19, 2020 10:14 Last Edited By: Moy Vegas MD - ER on Jan 19, 2020 10:14 (17) Tenderness of chest wall Status: Acute ICD Codes: R07.89 - Otherchest pain SNOMED: 911618998 Responsible Provider: Hany Salvador MBA, MD Problem Recorded: Feb 22, 2015 21:05 Last Edited By: Hany Salvador MBA, MD on Feb 22, 2015 21:05 (18) Upper respiratory infection Status: Acute ICD Codes: J06.9 - Acute upper respiratory infection, unspecified SNOMED: 73891285 Responsible Provider: Mohamud Savage MD Problem Recorded: Nov 17, 2015 19:29 Last Edited By: Otis Dao MD - ED on April 04, 2017 20:48 (19) Urinary tract infection Status: Acute ICD Codes: N39.0 - Urinary tract infection, site not specified SNOMED: 34136742 Problem Recorded: April 02, 2015 13:24 (20) UTI (urinary tract infection) Status: Acute ICD Codes: N39.0 - Urinary tract infection, site not specified SNOMED: 56821257 Responsible Provider: Carl Gomes MD Problem Recorded: April 01, 2016 04:19 Last Edited By: Carl Gmoes MD on April 01, 2016 04:19 HPI/Course Problems Acute/Active Problems: (1) Hypokalemia (2) Pancreatitis (3) Sinusitis Lab/Waldo/BBK/Rad Laboratory Tests Test 01/19/20 08:42 01/20/20 04:40 01/21/20 09:44 01/21/20 10:35 White Blood Count 12.6 10^3/uL 6.4 10^3/uL Red Blood Count 4.94 10^6/uL Hemoglobin 14.7 g/dL Hematocrit 41.6 % Mean Corpuscular Volume 84.2 fL Mean Corpuscular Hemoglobin 29.8 pg Mean Corpuscular Hemoglobin Concent 35.3 g/dL Red Cell Distribution Width 14.6 % Platelet Count 329 10^3/uL Mean Platelet Volume 9.2 fL Neutrophils (%) (Auto) 62.6 % Lymphocytes (%) (Auto) 27.6 % Monocytes (%) (Auto) 8.8 % Neutrophils # (Auto) 7.9 10^3/uL Lymphocytes # (Auto) 3.47 10^3/uL1 Monocytes # (Auto) 1.1 10^3/uL Absolute Immature Granulocyte (auto 0.05 10^3 u/L Absolute Eosinophils (auto) 0.0 10^3/uL Immature Granulocytes % 0.40 % Eosinophils % 0.3 % Basophils % 0.3 % Basophils # 0.0 10^3/uL Prothrombin Time 11.2 SEC Prothrombin Time INR (Non-Therap) 1.1 Activated Partial Thromboplast Time 20.5 SEC Sodium Level 140 mmol/L 139 mmol/L 143 mmol/L Potassium Level 2.2 mmol/L 3.4 mmol/L 4.2 mmol/L Chloride Level 105.0 mmol/L 108.0 mmol/L 115.0 mmol/L Carbon Dioxide Level 20.3 mmol/L 14.0 mmol/L 14.2 mmol/L Anion Gap 16.9 20.4 18.0 Blood Urea Nitrogen 20 mg/dL 18 mg/dL 18 mg/dL Creatinine 1.82 mg/dL 1.97 mg/dL 1.60 mg/dL Estimated GFR () 34.6 31.6 40.2 Est GFR (CKD-EPI)(Non-Afr Cymro) 28.6 26.1 33.2 BUN/Creatinine Ratio 10.0 9.0 11.0 Glucose Level 195 mg/dL 197 mg/dL 114 mg/dL Calcium Level 8.8 mg/dL 7.9 mg/dL 8.4 mg/dL Total Bilirubin 0.6 mg/dL 0.2 mg/dL 0.3 mg/dL Aspartate Amino Transf (AST/SGOT) 34 U/L 25 U/L 21 U/L Alanine Aminotransferase (ALT/SGPT) 59 U/L 41 U/L 47 U/L Alkaline Phosphatase 160 U/L 115 U/L 105 U/L Total Protein 6.9 g/dL 5.4 g/dL 5.4 g/dL Albumin 3.4 g/dL 2.6 g/dL 2.8 g/dL Globulin 3.5 2.8 2.6 Amylase Level 145 U/L Lipase 1174 U/L 689 U/L 242 U/L Helicobacter pylori Screen NEGATIVE Magnesium Level 1.8 mg/dL Triglycerides Level 105 mg/dL Cholesterol Level 122 mg/dL LDL Cholesterol, Calculated 55.0 VLDL Cholesterol, Calculated 21.0 HDL Cholesterol 46 mg/dL Cholesterol Ratio (LDL/HDL) 1.1 Cholesterol/HDL Ratio [id number] Urine Collection Type VOID Urine Color YELLOW Urine Appearance SLIGHTLY HAZY Urine Bilirubin NEGATIVE MG/DL Urine Ketones NEGATIVE Urine Specific [place] 1.015 Urine pH 6 Urine Protein 15 mg/dL Urine Urobilinogen NORMAL Urine Nitrate NEGATIVE Urine Leukocyte Esterase 25 /uL TRACE Urine Blood 250 4+ Urine RBC 2-5 RBC/HPF Urine WBC 2-5 WBC/HPF Urine Squamous Epithelial Cells MODERATE #/HPF Urine Bacteria FEW Urine Random Creatinine 126.39 Urine Sodium 28 mmol/L Urine Glucose NORMAL Test 01/22/20 04:14 Sodium Level 144 mmol/L Potassium Level 4.7 mmol/L Chloride Level 116.0 mmol/L Carbon Dioxide Level 15.1 mmol/L Anion Gap 17.6 Blood Urea Nitrogen 21 mg/dL Creatinine 1.52 mg/dL Estimated GFR () 42.7 Est GFR (CKD-EPI)(Non-Afr Cymro) 35.2 BUN/Creatinine Ratio 13.0 Glucose Level 161 mg/dL Calcium Level 8.4 mg/dL Total Bilirubin 0.4 mg/dL Aspartate Amino Transf (AST/SGOT) 21 U/L Alanine Aminotransferase (ALT/SGPT) 44 U/L Alkaline Phosphatase 96 U/L Total Protein 5.1 g/dL Albumin 2.7 g/dL Globulin 2.4 Lipase 359 U/L Vitals/I&O VS - Last 72 Hours, by Label Date Time Temp Pulse Resp B/P (MAP) Pulse Ox O2 Delivery O2 Flow Rate FiO2 01/22/20 07:50 Nasal Cannula 2.00 01/22/20 03:50 98.1 117 20 118/65 (82) 97 Nasal Canula 2.00 01/22/20 02:20 98 22 98 01/22/20 02:08 98 22 98 01/22/20 01:10 98.1 93 20 105/64 (78) 95 Nasal Canula 2.00 01/21/20 20:18 97 20 96 Nasal Cannula 2.00 01/21/20 19:23 97.6 97 20 109/63 (78) 96 Nasal Canula 2.00 01/21/20 19:05 Nasal Cannula 2.00 01/21/20 17:45 98.5 95 20 105/56 (72) 93 Nasal Canula 2.00 01/21/20 15:48 110 18 95 01/21/20 15:47 110 18 95 01/21/20 14:48 Nasal Cannula 2.00 01/21/20 11:20 98.5 110 18 103/61 (75) 95 01/21/20 08:28 116 20 97 01/21/20 08:25 120 20 94 Nasal Cannula 2.00 01/21/20 08:24 115 18 97 01/21/20 07:04 98.5 120 18 97/51 (66) 94 01/21/20 05:25 98.6 111 22 106/48 (67) 96 Nasal Canula 2.00 01/21/20 04:59 104 22 97 01/21/20 00:54 109 22 96 01/21/20 00:46 109 22 96 01/21/20 00:34 97.6 109 22 120/44 (69) 96 Nasal Canula 2.00 01/20/20 22:35 Nasal Cannula 2.00 01/20/20 20:28 108 24 91 01/20/20 20:07 108 24 91 Nasal Cannula 2.00 01/20/20 20:06 108 24 91 01/20/20 19:00 97.5 118 22 100/58 (72) 94 Room Air 2.00 01/20/20 17:50 97.8 104 20 95/50 (65) 94 Nasal Canula 2.00 01/20/20 17:12 Nasal Cannula 2.00 01/20/20 15:58 106 20 96 01/20/20 15:58 105 22 96 01/20/20 13:33 94 21 96 01/20/20 13:33 95 22 96 01/20/20 11:26 97.6 91 21 99/50 (66) 98 Nasal Canula 2.00 01/20/20 08:43 88 21 98 2.00 01/20/20 08:39 88 21 96 01/20/20 08:39 89 20 96 01/20/20 07:40 97.8 96 20 105/55 (72) 100 Nasal Canula 2.00 01/20/20 05:07 94 20 97 01/20/20 05:02 88 20 96 01/20/20 04:39 Nasal Cannula 01/20/20 04:26 97.7 89 22 105/62 (76) 97 Nasal Canula 2.00 3/11/20 00:21 92 18 99 01/20/20 00:18 88 20 97 01/19/20 23:40 112 26 120/73 (89) 98 Nasal Canula 2.00 01/19/20 20:32 91 20 99 01/19/20 20:28 95 20 98 01/19/20 20:28 95 20 98 2.00 28 01/19/20 19:15 98.0 99 28 114/71 (85) 96 Nasal Canula 2.00 01/19/20 17:25 97.8 85 18 93/62 (72) 98 Nasal Canula 2.00 01/19/20 16:40 96 20 98 01/19/20 16:35 20 98 01/19/20 16:31 94 20 98 Nasal Cannula 2.00 28 01/19/20 16:29 94 20 98 01/19/20 12:00 98.0 122 18 131/82 (98) 2 Nasal Canula 2.00 01/19/20 11:33 113 20 99 01/19/20 11:18 118 19 99 01/19/20 11:03 125 29 99 01/19/20 10:48 118 24 99 01/19/20 10:33 118 29 99 01/19/20 10:18 116 13 99 01/19/20 10:03 121 27 99 01/19/20 09:48 119 15 98 01/19/20 09:33 120 23 99 01/19/20 09:03 117 14 99 01/19/20 09:00 111/66 (81) 01/19/20 08:48 133 33 99 01/19/20 08:45 116/87 (97) 01/19/20 08:26 97.8 123 17 128/84 (99) 99 Room Air 01/19/20 08:20 97.8 123 17 01/19/20 08:20 99.4 127 17 99 Scheduled Acetaminophen With Codeine (Tylenol With Codeine #4 Tablet), 1 EACH PO Q6, (Reported) Albuterol Sulfate (Ventolin Hfa), 18 GM IH Q6HR, (Reported) Alprazolam (Alprazolam), 1 TAB PO BID, (Reported) Aspirin (Aspirin Ec), 81 MG PO DAILY Beclomethasone Dipropionate (Beclomethasone Dipropionate), 10 GM INH DAILY24, (Reported) Benzonatate (Tessalon Perle), 2 CAP PO TID Citalopram Hydrobromide (Citalopram Hbr), 1 TAB PO DAILY, (Reported) Fludrocortisone Acetate (Fludrocortisone Acetate), 1 TAB PO -W-, (Reported) Fluticasone Propionate (Fluticasone Propionate), 1 SPRAYS NS BID Guaifenesin (Mucinex), 600 MG PO BID Levofloxacin (Levaquin), 500 MG PO DAILY Levothyroxine Sodium (Levothyroxine Sodium), 1 TAB PO DAILY, (Reported) Lovastatin (Lovastatin), 20 MG PO HS, (Reported) Montelukast Sodium (Montelukast Sodium), 1 TAB PO HS, (Reported) Nystatin (Nystatin), 500,000 UNIT PO QID Omeprazole Magnesium (Prilosec Otc), 20 MG PO DAILY, (Reported) Prednisone (Prednisone), 20 MG PO DAILY24 Roflumilast (Daliresp), 0.5 TAB PO DAILY, (Reported) Tizanidine Hcl (Tizanidine Hcl), 2 MG PO Q8HR, (Reported) Discontinued Medications Alprazolam (Alprazolam), 0.5 MG PO Q8, (Reported) Discontinued Reason: Discontinue Benzonatate (Tessalon Perle), 200 MG PO TID PRN for COUGH Discontinued Reason: Discontinue Megestrol Acetate (Megestrol Acetate), 120 MG PO DAILY24, (Reported) Discontinued Reason: Discontinue Nicotine (Nicotine Patch), 1 EACH TD DAILY24, (Reported) Discontinued Reason: Discontinue Sepsis Reassessment @ DC Vital Sign - Last 24 Hours 01/19/20 01/19/20 01/19/20 08:20 08:20 08:26 Temp 99.4 97.8 97.8 Pulse 127 123 123 Resp 17 17 17 B/P (MAP) 128/84 (99) Pulse Ox 99 99 O2 Delivery Room Air Laboratory Tests Test 01/19/20 08:42 White Blood Count 12.6 10^3/uL Red Blood Count 4.94 10^6/uL Hemoglobin 14.7 g/dL Hematocrit 41.6 % Mean Corpuscular Volume 84.2 fL Mean Corpuscular Hemoglobin 29.8 pg Mean Corpuscular Hemoglobin Concent 35.3 g/dL Red Cell Distribution Width 14.6 % Platelet Count 329 10^3/uL Mean Platelet Volume 9.2 fL Neutrophils (%) (Auto) 62.6 % Lymphocytes (%) (Auto) 27.6 % Monocytes (%) (Auto) 8.8 % Neutrophils # (Auto) 7.9 10^3/uL Lymphocytes # (Auto) 3.47 10^3/uL1 Monocytes # (Auto) 1.1 10^3/uL Absolute Immature Granulocyte (auto 0.05 10^3 u/L Absolute Eosinophils (auto) 0.0 10^3/uL Immature Granulocytes % 0.40 % Eosinophils % 0.3 % Basophils % 0.3 % Basophils # 0.0 10^3/uL Prothrombin Time 11.2 SEC Prothrombin Time INR (Non-Therap) 1.1 Activated Partial Thromboplast Time 20.5 SEC Sodium Level 140 mmol/L Potassium Level 2.2 mmol/L Chloride Level 105.0 mmol/L Carbon Dioxide Level 20.3 mmol/L Anion Gap 16.9 Blood Urea Nitrogen 20 mg/dL Creatinine 1.82 mg/dL Estimated GFR () 34.6 Est GFR (CKD-EPI)(Non-Afr Cymro) 28.6 BUN/Creatinine Ratio 10.0 Glucose Level 195 mg/dL Calcium Level 8.8 mg/dL Total Bilirubin 0.6 mg/dL Aspartate Amino Transf (AST/SGOT) 34 U/L Alanine Aminotransferase (ALT/SGPT) 59 U/L Alkaline Phosphatase 160 U/L Total Protein 6.9 g/dL Albumin 3.4 g/dL Globulin 3.5 Amylase Level 145 U/L Lipase 1174 U/L Helicobacter pylori Screen NEGATIVE Referral/Follow-up f/u: -PCP 7-10d. -Pulmonology w/i 1m for COPD. -Nephrology w/i 1m for IKE. -Psychiatry w/i 1m. Prescription/RX: Active Scripts Active Nystatin 100,000 Unit/1 Ml Oral.susp 500,000 Unit PO QID 5 Days Levaquin (Levofloxacin) 500 Mg Tablet 500 Mg PO DAILY Tessalon Perle (Benzonatate) 100 Mg Capsule 2 Cap PO TID Prednisone 20 Mg Tablet 20 Mg PO DAILY24 5 Days Fluticasone Propionate 16 Gm [place].susp 1 Sprays NS BID 30 Days Mucinex (Guaifenesin) 600 Mg Tablet.er 600 Mg PO BID 30 Days Aspirin Ec (Aspirin) 81 Mg Tablet.dr 81 Mg PO DAILY 30 Days Reported Beclomethasone Dipropionate 10 Gm Powder 10 Gm INH DAILY24 Daliresp (Roflumilast) 500 Mcg Tablet 0.5 Tab PO DAILY Fludrocortisone Acetate 0.1 Mg Tablet 1 Tab PO M-W- Alprazolam 1 Mg Tablet 1 Tab PO BID Citalopram Hbr (Citalopram Hydrobromide) 10 Mg Tablet 1 Tab PO DAILY Montelukast Sodium 10 Mg Tablet 1 Tab PO HS Tizanidine Hcl 2 Mg Capsule 2 Mg PO Q8HR Levothyroxine Sodium 88 Mcg Tablet 1 Tab PO DAILY Tylenol With Codeine #4 Tablet (Acetaminophen/Caffeine/Codeine) 1 Each Tablet 1 Each PO Q6 Lovastatin 20 Mg Tablet 20 Mg PO HS Ventolin Hfa (Albuterol Sulfate) 18 Gm Hfa.aer.ad 18 Gm IH Q6HR Prilosec Otc (Omeprazole Magnesium) 20 Mg Tablet.dr 20 Mg PO DAILY ROSI GARCIA DO Jan 22, 2020 08:41
[2020-01-22 09:15] VITALS: BP 120/71
[2020-01-22] MEDS: MUCINEX PO SCH (09:16)
[2020-01-22] MEDS: LEVAQUIN PO SCH (09:16)
[2020-01-22] MEDS: CeleXA PO SCH (09:16)
[2020-01-22] MEDS: ASPIRIN EC PO SCH (09:16)
[2020-01-22] MEDS: XANAX PO SCH (09:17)
[2020-01-22] MEDS: PROTONIX PO SCH (09:17)
[2020-01-22] MEDS: MYCOSTATIN PO SCH (09:17)
[2020-01-22] MEDS: FLONASE NS SCH (09:17)
--- NOTE | 2020-01-22 09:18 | DSH ---
DATE OF DISCHARGE: 01/22/2020 TIME OF DISCHARGE: 8:44 a.m. PRINCIPAL DIAGNOSED: Chronic obstructive pulmonary disease exacerbation. The patient is O2 dependent 3 liters. SECONDARY DIAGNOSES: 1. Noncompliance. 2. Abdominal pain, query pancreatitis with elevated lipase; however, without radiographic findings of this. 3. Diarrhea. 4. Acute renal insufficiency. 5. Hypokalemia, resolved. 6. Anorexia. 7. Seasonal allergies. 8. History of gastrointestinal bleed. 9. Insomnia. 10. Anxiety. 11. Depression. 12. Hypothyroidism. 13. Coronary artery disease, nonobstructive. 14. Gastroesophageal reflux disease. 15. Hyperlipidemia. 16. Obesity. 17. Hepatic steatosis. 18. Nephrolithiasis, asymptomatic. 19. Atrophic left kidney. 20. History of cerebrovascular accident. 21. Chronic pain. 22. Muscle spasm. CONSULTATIONS: None. DISPOSITION: The patient will be advised to follow up with her primary care physician or provider in 7-10 days post-discharge. The patient is advised to follow up with Pulmonology within 1 month of discharge for COPD. The patient is advised to follow up with Nephrology within 1 month of discharge for acute renal insufficiency. The patient is advised to follow up with Psychiatry within 1 month of discharge for history of anxiety and depression. DISCHARGE MEDICATIONS: 1. Zanaflex 2 mg p.o. q. 8 hours. 2. Proventil HFA 90 mcg per spray 2 puffs q. 6 hours. 3. Lovastatin 20 mg p.o. at bedtime. 4. Xanax 1 mg p.o. b.i.d. 5. Aspirin 81 mg p.o. daily. 6. Celexa 10 mg p.o. daily. 7. Guaifenesin 600 mg p.o. b.i.d. 8. Singulair 10 mg p.o. daily. 9. Daliresp 500 mcg p.o. daily. 10. Flonase 50 mcg per spray 1 puff in each naris b.i.d. 11. Prilosec 20 mg p.o. daily. 12. Synthroid 88 mcg p.o. daily. 13. Prednisone 20 mg p.o. daily. 14. Beclomethasone dipropionate inhaled per home dose and frequency. 15. Fludrocortisone 0.1 mg p.o. every Saturday, Saturday and Saturday. 16. Levaquin 500 mg 1 tab p.o. daily, #4, no refills. 17. Nystatin 100,000 units per mL 6 mL p.o. q.i.d. swish and swallow, number of quantity sufficient for 5 days, no refills. ROSI GARCIA DO DR: POLINA/no JOB# [id number]
[2020-01-22 13:40] VITALS: BP 120/71
== END 2020-01-22 12:10 | disposition home or self-care (01) | DRG 190 ==
LOC: EDBD 08:18 → ER 08:18 → MS 10:14
PROVIDERS: ADMIT Internal Medicine; ATTEND Internal Medicine
DX: J44.1 Chronic obstructive pulmonary disease with (acute) exacerbation (principal); K85.90 Acute pancreatitis without necrosis or infection, unspecified; E87.6 Hypokalemia; J32.9 Chronic sinusitis, unspecified; G47.00 Insomnia, unspecified; F41.9 Anxiety disorder, unspecified; E03.9 Hypothyroidism, unspecified; E66.9 Obesity, unspecified; E78.5 Hyperlipidemia, unspecified; F32.9 Major depressive disorder, single episode, unspecified; I25.10 Atherosclerotic heart disease of native coronary artery without angina pectoris; K21.9 Gastro-esophageal reflux disease without esophagitis; N20.0 Calculus of kidney; N28.9 Disorder of kidney and ureter, unspecified; K76.0 Fatty (change of) liver, not elsewhere classified; J30.2 Other seasonal allergic rhinitis; N26.1 Atrophy of kidney (terminal); G89.29 Other chronic pain; I50.9 Heart failure, unspecified; Z79.899 Other long term (current) drug therapy; Z79.82 Long term (current) use of aspirin; Z82.49 Family history of ischemic heart disease and other diseases of the circulatory system; Z86.73 Personal history of transient ischemic attack (TIA), and cerebral infarction without residual deficits; Z87.891 Personal history of nicotine dependence; Z91.19 Patient's noncompliance with other medical treatment and regimen; Z99.81 Dependence on supplemental oxygen
CPT/HCPCS: 36415; 70450; 74176; 76770; 80053; 80061; 82150; 82570; 83690; 83735; 84300; 85025; 85048; 85610; 85730; 86677; 87086; 93005; 94640; 99285; G0378; J1956; J2405; J2930; J3490; J7030; J7620; J3480

== ENCOUNTER → 2020-01-29 | Outpatient (CLI) | payer BC ==
[~2020-01-29] MED LIST changes: +ALPR1TAB6 PO; +LEVO500T51 PO; +NYST1000 PO; +ROFL500T PO
[2020-01-29 10:08] LABS: BASOPHIL % 0.3 % (0.0-0.2); EOSINOPHIL % 0.5 % (0.0-5.0); LYMPHOCYTES # 2.25 10^3/uL1 (1.0-4.8); LYMPHOCYTES % 30.1 % (24.0-44.0); MEAN CORP HGB 29.7 pg (26-34); MONOCYTES # 0.8 10^3/uL (0.3-0.8); NEUTROPHIL # 4.3 10^3/uL (1.8-7.7); NEUTROPHILS % 57.3 % (41.0-85.0); PLATELET COUNT 302 10^3/uL (150-400); RED CELL DISTRIBUTION WIDTH 15.3 % (11.5-14.5)
[2020-01-29 10:35] LABS: CALCIUM 8.5 mg/dL (8.4-10.5)
== END | disposition home or self-care (01) ==
LOC: LAB 09:20
PROVIDERS: ATTEND Internal Medicine
DX: J44.1 Chronic obstructive pulmonary disease with (acute) exacerbation (principal)
CPT/HCPCS: 36415; 80053; 85025

== ENCOUNTER 2020-02-10 12:09 | Emergency (ER) | payer BC ==
[~2020-02-10] VITALS: Ht 162.6 cm; Wt 68.0 kg
[2020-02-10 12:09] VITALS: BP 89/57
--- NOTE | 2020-02-10 12:09 | NUR ---
ARRIVAL PT ARRIVED VIA STRETCHER BY [facility] TO ER 2. PT STATES GOT LIGHTHEADED LAST NIGHT AND FELL, HITTING THE BACK OF HER HEAD. PT STATES DID NOT LOSE CONSCIOUSNESS, PT DENIES ANY PAIN AT THIS TIME. EDP NOTIFIED OF PT ARRIVAL.
--- NOTE | 2020-02-10 12:28 | ER.PDOC ---
General Chief Complaint: Requesting Medical Care Stated Complaint: FALL Time seen by MD: 12:27 Source: patient, EMS, EMS notes reviewed Exam Limitations: no limitations History of Present Illness Initial Comments 59 Y/O F TO ED BY EMS WITH HX OF FEELING DIZZY LAST PM AND STOOD UP FALLING, HITTING BACK OF HER HEAD. NO LOC, NO CHEST PAIN, NO FEVER, NO N/V/D, NO COVID-19 SYMPTOMS. AGREES TO N/V/D FOR 3 DAYS LAST EPISODE X 2 DAYS AGO. NO BLOOD IN STOOL OR VOMITUS. NO ABD PAIN. EMS CALLED LAST PM AND PATIENT REFUSED TRANSPORT. PATIENT STATES FAMILY CALLED EMS TODAY WHEN THEY NOTED BLOOD ON PILLOW THIS AM. PATIENT AGREES TO COOK AND FEELS DIZZY WITH STANDING BUT DID NOT WANT TO COME. Occurred: yesterday Where: home Severity: mild Injuries/Pain Location: head Context: Lightheaded, Lost Balance Loss of Consciousness: No Loss of Consciousness Modifying Factors: improves with other Associated Symptoms: dizziness, headache, lightheadedness Allergies: Coded Allergies: celecoxib (Unverified Allergy, Severe, SEIZURES, 02/22/15) cephalexin (Unverified Allergy, Mild, N/V, 02/22/15) MEDS Active Scripts Nystatin (NYSTATIN) 100,000 Unit/1 Ml Oral.susp, 806611 UNIT PO QID for 5 Days, #1 ML Prov:RADHA,AMIR DO 01/22/20 Levofloxacin (LEVAQUIN) 500 Mg Tablet, 500 MG PO DAILY, #4 TAB Prov:RADHA,AMIR DO 01/22/20 Prednisone (PREDNISONE) 20 Mg Tablet, 20 MG PO DAILY24 for 5 Days, #5 TAB 0 Refills Prov:ANH SCHMIDT MD 11/22/19 Fluticasone Propionate (FLUTICASONE PROPIONATE) 16 Gm [place].susp, 1 SPRAYS NS BID for 30 Days, #1 CONTAINER 0 Refills Prov:ANH SCHMIDT MD 11/22/19 Guaifenesin (MUCINEX) 600 Mg Tablet.er, 600 MG PO BID for 30 Days, #60 TAB 0 Refills Prov:ANH SCHMIDT MD 10/25/19 Aspirin (ASPIRIN EC) 81 Mg Tablet.dr, 81 MG PO DAILY for 30 Days, #30 TAB 0 Refills Prov:ANH SCHMIDT MD 10/25/19 Reported Medications Beclomethasone Dipropionate (BECLOMETHASONE DIPROPIONATE) 10 Gm Powder, 10 GM INH DAILY24, GM 01/19/20 Roflumilast (DALIRESP) 500 Mcg Tablet, 0.5 TAB PO DAILY, #90 TAB 3 Refills 01/19/20 Fludrocortisone Acetate (FLUDROCORTISONE ACETATE) 0.1 Mg Tablet, 1 TAB PO -W-, #90 TAB 1 Refill 01/19/20 Alprazolam (ALPRAZOLAM) 1 Mg Tablet, 1 TAB PO BID, #60 TAB 01/19/20 Citalopram Hydrobromide (CITALOPRAM HBR) 10 Mg Tablet, 1 TAB PO DAILY, #30 TAB 3 Refills 10/21/19 Montelukast Sodium (MONTELUKAST SODIUM) 10 Mg Tablet, 1 TAB PO HS, #30 TAB 5 Refills 10/21/19 Tizanidine Hcl (TIZANIDINE HCL) 2 Mg Capsule, 2 MG PO Q8HR for PAIN, CAPSULE 10/21/19 Levothyroxine Sodium (LEVOTHYROXINE SODIUM) 88 Mcg Tablet, 1 TAB PO DAILY, #30 TAB 5 Refills 10/21/19 Lovastatin (LOVASTATIN) 20 Mg Tablet, 20 MG PO HS, TABLET 07/27/19 Albuterol Sulfate (VENTOLIN HFA) 18 Gm Hfa.aer.ad, 18 GM IH Q6HR 03/01/15 Omeprazole Magnesium (PRILOSEC OTC) 20 Mg Tablet.dr, 20 MG PO DAILY 02/22/15 Past Medical History Medical History: congestive heart failure, COPD, other Surgical History: cholecystectomy, other Family History Significant Family History: no pertinent family hx Social History Smoking: less than 1 pack/day Alcohol Use: none Drug Use: none Reviewed Nursing Reviewed: Vital Signs, Abn. Noted, Nursing Assessment Review of Systems Constitutional: no symptoms reported Eyes: no symptoms reported Ears, Nose, Mouth, Throat: no symptoms reported Respiratory: no symptoms reported Gastrointestinal: no symptoms reported Genitourinary: no symptoms reported Musculoskeletal: neck pain, other Skin: no symptoms reported Psychiatric/Neurological: no symptoms reported Physical Exam General Appearance: No Apparent Distress Head: Contusions, Swelling, Tenderness Eyes: bilateral eye normal inspection Ears, Nose, Mouth, Throat: Hearing Grossly Normal, No Evidence of ENT Injury, No Dental Injury Neck: Limited Range of Motion, Paraspinous Muscle Tender Cardiovascular/Respiratory: Regular Rate, Rhythm, No M/R/G, Normal Peripheral Pulses, No JVD, Normal Breath Sounds, No Respiratory Distress Gastrointestinal: Normal Bowel Sounds, No Organomegaly, No Pulsatile Mass, Non Tender, Soft Back: Normal Inspection, No CVA Tenderness, No Vertebral Tenderness Extremities: No Evidence of Injury, Normal Range of Motion, Non-Tender, No Pedal Edema 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 NECK --MILD TENDER TO BILAT MUSCLES. 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 Olinda Coma Score Best Eye Response: (4) Open Spontaneously Best Verbal Response: (5) Oriented Best Motor Response: (6) Obeys Commands Anderson Total: 15 Results/Orders Results/Orders Orders - PAREKR CARR DO [place] (02/10/20 12:29) Cbc With Auto Diff (02/10/20 12:29) Comprehensive Metabolic Panel (02/10/20 12:29) Urinalysis (02/10/20 12:29) Ekg-Routine (02/10/20 12:29) 0.9 % Sodium Chloride (Ns 1000ml) (02/10/20 12:29) Lipase (02/10/20 12:29) Troponin I (02/10/20 12:29) Creatine Kinase Mb (02/10/20 12:29) Creatine Kinase (02/10/20 12:29) Ct Head Wo Contrast (02/10/20 12:29) Ct Cervical Spine (02/10/20 12:29) Orthostatics On Arrival (02/10/20 12:29) Clean Area With Hibiclens (02/10/20 12:29) 0.9 % Sodium Chloride (Ns 1000ml) (02/10/20 12:36) Potassium Chloride (Klor-Con 10) (02/10/20 14:00) 0.9 % Sodium Chloride (Ns 1000ml) (02/10/20 13:57) 0.9 % Sodium Chloride (Ns 1000ml) (02/10/20 14:03) Potassium Chloride (Klor-Con 10) (02/10/20 14:03) Vital Signs Date Time Temp Pulse Resp B/P (MAP) Pulse Ox O2 Delivery O2 Flow Rate FiO2 02/10/20 12:09 97.5 81 16 99 02/10/20 12:09 97.5 81 16 Administered Medications Medications (Trade) Dose Ordered Sig/Krystle Route PRN Reason Start Time Stop Time Status Last Admin Dose Admin Sodium Chloride 1,000 ml @ 0 mls/hr Q0M STAT IV 02/10/20 12:29 02/10/20 12:36 DC 02/10/20 12:52 1,000 MLS/HR Laboratory Tests Test 02/10/20 12:50 White Blood Count 12.4 10^3/uL (4.5-11.0) H Red Blood Count 4.23 10^6/uL (4.00-5.20) Hemoglobin 12.5 g/dL (12.0-15.0) Hematocrit 35.1 % (36.0-46.0) L Mean Corpuscular Volume 83.0 fL (78-100) Mean Corpuscular Hemoglobin 29.6 pg (26-34) Mean Corpuscular Hemoglobin Concent 35.6 g/dL (33-36.5) Red Cell Distribution Width 13.8 % (11.5-14.5) Platelet Count 398 10^3/uL (150-400) Mean Platelet Volume 9.4 fL (7.8-11.0) Neutrophils (%) (Auto) 82.2 % (41.0-85.0) Lymphocytes (%) (Auto) 12.4 % (24.0-44.0) L Monocytes (%) (Auto) 4.5 % (5.0-12.0) L Neutrophils # (Auto) 10.2 10^3/uL (1.8-7.7) H Lymphocytes # (Auto) 1.54 10^3/uL1 (1.0-4.8) Monocytes # (Auto) 0.6 10^3/uL (0.3-0.8) Absolute Immature Granulocyte (auto 0.07 10^3 u/L (0-2) Absolute Eosinophils (auto) 0.0 10^3/uL (0.0-0.2) Immature Granulocytes % 0.60 % (0.00-0.50) H Eosinophils % 0.1 % (0.0-5.0) Basophils % 0.2 % (0.0-0.2) Basophils # 0.0 10^3/uL (0.0-0.1) Sodium Level 129 mmol/L (132-145) L Potassium Level 2.4 mmol/L (3.6-5.2) *L Chloride Level 95.0 mmol/L (96-109) L Carbon Dioxide Level 20.7 mmol/L (20.0-32) Anion Gap 15.7 Blood Urea Nitrogen 19 mg/dL (7-18) H Creatinine 1.69 mg/dL (0.59-1.40) H Estimated GFR () 37.7 (>/=60) Est GFR (CKD-EPI)(Non-Afr English) 31.2 (>/=60) BUN/Creatinine Ratio 11.0 Glucose Level 170 mg/dL (70-110) H Calcium Level 8.3 mg/dL (8.4-10.5) L Total Bilirubin 0.7 mg/dL (0.2-1.0) Aspartate Amino Transferase (AST) 48 U/L (0-35) H Alanine Aminotransferase (ALT) 61 U/L (12-78) Alkaline Phosphatase 197 U/L (50-136) H Total Creatine Kinase 81 U/L (26-192) Creatine Kinase MB 1.8 ng/mL (0.5-3.6) Troponin I 0.03 ng/mL (0.00-0.05) Total Protein 6.3 g/dL (6.4-8.2) L Albumin 3.1 g/dL (3.4-5.0) L Globulin 3.2 Lipase 1444 U/L (114-286) H Progress Progress DIFF DX IN DETAIL WITH PATIENT, REVIEW OF LABS AND CT'S TODAY DISCUSSED. TOLD PATIENT SHE IS PRESENTING LIKE LAST ADMIT ON 01/19/20. PATIENT REFUSES ANY MORE WORKUP AND WANTS TO GO HOME . PATIENT IS AAOX 3, PATIENT HAS THE CAPACITY TO UNDERSTAND AND WANTS TO GO HOME, PATIENT REFUSES CT ABD/PELVIS. AT [facility]--PATIENT HAS MILD, NO NAUSEA, NO ABD PAIN. 01/19/20--ADMIT FOR ABD PAIN, PANCREATITIS, AND HYPOKALEMIA.-----LIPASE-1174, CREAT-1.82, K+-2.2, CT ABD/PELVIS--NEG, WORK UP SIMILAR TO TODAY. EKG/XRAY/CT/US EKG: NSR EKG Comments: ECG--SINUS TACHY, RATE--104, NO ACUTE CHANGES. CT Comments: CT HEAD AND NECK---BOTH NEG. Consult/PCP Time Consult/PCP Called: 14:12 Consult/PCP: MASSAGE LEFT FOR DR SMITH #2 Time Consult/PCP Called: 14:27 Consult/PCP: DR SMITH-- CASE DISCUSSED, WILL FOLLOW UP WITH PATIENT TOMORROW. Departure Time of Disposition: 14:31 Disposition: 07 AGAINST MEDICAL ADVICE Impression: Primary Impression: Dehydration Additional Impressions: Renal insufficiency Pancreatitis Hypoglycemia Abrasion, scalp w/o infection Condition: Stable Patient Instructions: Acute Pancreatitis, Chronic Renal Insufficiency, Dehydration, Adult, Hypokalemia Referrals: ARMIDA GREGG MD (PCP) PRIMARY CARE PROVIDER JAYDEN SMITH MD Additional Instructions: TO ED IF WORSE OR NO BETTER, DRINK MORE WATER, DR SMITH WILL CALL TOMORROW AT 14:45, RX K-DUR 20MEQ 1 PO DAILY. Duration or Time Spent with Pa: 20 MIN Problem Qualifiers PARKER CARR DO Feb 10, 2020 12:28
[2020-02-10] MEDS ORDERED: NS 1000ML 1,000 ML IV STA ×2 (12:29→13:57)
[2020-02-10] MEDS ORDERED: NS 1000ML 1,000 ML ONE ×2 (12:36→14:03)
--- NOTE | 2020-02-10 12:45 | PCM.EKG ---
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
[2020-02-10 12:57] LABS: BASOPHIL % 0.2 % (0.0-0.2); EOSINOPHIL % 0.1 % (0.0-5.0); LYMPHOCYTES # 1.54 10^3/uL1 (1.0-4.8); LYMPHOCYTES % 12.4 % (24.0-44.0); MEAN CORP HGB 29.6 pg (26-34); MONOCYTES # 0.6 10^3/uL (0.3-0.8); MONOCYTES % 4.5 % (5.0-12.0); NEUTROPHIL # 10.2 10^3/uL (1.8-7.7); NEUTROPHILS % 82.2 % (41.0-85.0); PLATELET COUNT 398 10^3/uL (150-400); RED CELL DISTRIBUTION WIDTH 13.8 % (11.5-14.5)
--- NOTE | 2020-02-10 13:20 | DIREP ---
PROCEDURE:CT HEAD WITHOUT CONTRAST TECHNIQUE:Axial cuts were obtained through the head, without intravenous contrast material. The images were viewed at brain and bone settings. COMPARISON:[facility], CT, CT HEAD BRAIN W/O CONTRAST, 01/19/2020, 09:23 AM. INDICATIONS:FALL WITH SCALP LACERATION FINDINGS: VENTRICLES:Normal. CEREBRUM:Normal. No intracranial hemorrhage. CEREBELLUM:Normal. BRAINSTEM:Normal. SKULL:No fractures. Left parietal scalp hematoma measuring 3.42 x 1.26 cm series 2, image 20. SINUSES:Minimal mucosal thickening left sphenoid sinus and right ethmoid sinus. OTHER:Negative. CONCLUSION: 1. No intracranial abnormalities. 2. Left parietal scalp hematoma. 3. Mild left sphenoid and right ethmoid sinusitis. Dictated by: Triston Morton M.D. on 02/10/2020 at 01:16 PM
--- NOTE | 2020-02-10 13:22 | DIREP ---
PROCEDURE:CT CERVICAL SPINE WITHOUT CONTRAST TECHNIQUE:Axial cuts were obtained through the cervical spine. The images were viewed at bone settings. Sagittal and coronal reconstructions are provided. COMPARISON:None. INDICATIONS:FALL UPPER NECK PAIN FINDINGS: ALIGNMENT:Normal. VERTEBRAE:Normal. No fractures. PARASPINAL AREA:Normal. OTHER:No additional findings. CERVICAL DISC LEVELS C2-C3:Normal. C3-C4:Normal. C4-C5:Normal. C5-C6:Normal. C6-C7:Normal. C7-T1:Normal. CONCLUSION:Normal CT scan of the cervical spine. Dictated by: Triston Morton M.D. on 02/10/2020 at 01:19 PM
[2020-02-10 13:28] LABS: CALCIUM 8.3 mg/dL (8.4-10.5); CARBON DIOXIDE 20.7 mmol/L (20.0-32)
--- NOTE | 2020-02-10 13:30 | NUR ---
CRITICAL LAB VALUE DR CARR NOTIFIED OF CRITICAL LAB VALUE AT THIS TIME.
[2020-02-10] MEDS ORDERED: KLOR-CON 10 PO SCH (14:00)
--- NOTE | 2020-02-10 14:00 | NUR ---
ABRASION CLEANED ABRASION TO LEFT SIDE OF PT'S HEAD AT THIS TIME. DRIED BLOOD REMOVED. APPROXIMATELY QUARTED SIZED ABRASION NOTED. EDP NOTIFIED.
[2020-02-10] MEDS ORDERED: KLOR-CON 10 PO ONE (14:03)
[2020-02-10 15:03] LABS: BILIRUBIN,URINE NEGATIVE (NEGATIVE); UROBILINOGEN,URINE NORMAL (NEGATIVE)
[2020-02-10 15:12] LABS: APPEARANCE,URINE SLIGHTLY HAZY (CLEAR); UA COLOR YELLOW (YELLOW)
== END 2020-02-10 16:15 | disposition left against medical advice (07) ==
LOC: ER 12:09 → EDBD 12:09 → ER 16:15
DX: S00.01XA Abrasion of scalp, initial encounter (principal); E16.2 Hypoglycemia, unspecified; E86.0 Dehydration; E87.6 Hypokalemia; F17.210 Nicotine dependence, cigarettes, uncomplicated; I50.9 Heart failure, unspecified; J44.9 Chronic obstructive pulmonary disease, unspecified; K85.90 Acute pancreatitis without necrosis or infection, unspecified; N28.9 Disorder of kidney and ureter, unspecified; Z79.82 Long term (current) use of aspirin; Z79.899 Other long term (current) drug therapy; Z88.1 Allergy status to other antibiotic agents; Z90.49 Acquired absence of other specified parts of digestive tract; W19.XXXA Unspecified fall, initial encounter; Y93.89 Activity, other specified; Y92.098 Other place in other non-institutional residence as the place of occurrence of the external cause; Y99.8 Other external cause status
CPT/HCPCS: 36415; 70450; 72125; 80053; 81000; 82550; 82553; 83690; 84484; 85025; 87086; 93005; 96360; 96361; 99285; J3490; J7030 ×2